=== PATIENT | female | born 1965 | race Caucasian/White ===

== ENCOUNTER → 2016-10-24 | Outpatient (CLI) | payer MEDICARE, OTHER ==
--- NOTE | 2016-10-24 17:37 | PN ---
DATE OF SERVICE: 10/24/2016 A 51-year-old lady who had [facility] of obstructive sleep apnea/hypopnea syndrome. Patient continued to use her CPAP equipment. Reading from the machine shows that usage is 92% of the time for more than 4 hours. Pressure of the machine in the range with maximum IPAP 21 cm and minimal EPAP 15 cm of water. With this regimen, apnea-hypopnea index 13.1. Sometimes patient has quiet, significant leak from the mask. She is using two-face mask and there is a possibility that the mask is not correctly fitting patient during the sleep. Patient sometimes feels sleepy during the day. Bryant Sleepiness Scale increased to 11. MEDICATIONS: ( ), topiramate, Vimpat, ( ), levothyroxine, clonazepam, vitamin B12, ranitidine, lorazepam, vitamin D3, Dilantin. PHYSICAL EXAMINATION: GENERAL: During physical exam, the patient in no distress, in wheelchair. VITAL SIGNS: BP 136/89, HR 72, estimated weight is 202 pounds. BMI 36.9. Neck 19-1/2 inches in circumference. Temp is 98.2. Oxygen saturation at room air 98%. HEENT: PERRLA, EOMI. Evaluation of the oropharynx showed low position of soft palate. NECK: Supple. No JVD, Thyroid is not palpable. LUNGS: Clear to percussion and to auscultation. Good air exchange. No wheezing or rhonchi. HEART: S1, S2 regular. No murmurs, gallops, or rubs. ABDOMEN: Obese. Soft and nontender. Bowel sounds are present. No organomegaly appreciated. EXTREMITIES: No edema. IMPRESSION: 1. Obstructive sleep apnea-hypopnea syndrome. Patient demonstrated good compliance with treatment; benefiting from treatment. 2. Significant leak from the mask while patient is using her equipment. 3. Obesity. 4. History of cerebral palsy. 5. Hypothyroidism. 6. History of seizures. 7. Acid reflux. PLAN: 1. Continue treatment with BiPAP every night for the whole night. 2. We will see possibly change mask for the patient to possibly a more comfortable one. 3. Losing weight. 4. Sleep hygiene with regular time in bed for at least 8 hours. 5. Patient does not drive car. Thank you very much for allowing me to participate in the management of your patient. Sincerely, Chad Levin MD, PhD, FAASM Diplomat of [place] [employer], Sleep Medicine Board by [place] [employer] [place] [employer] [facility] [place]
== END | disposition home or self-care (01) ==
LOC: SLEEP 14:21
PROVIDERS: ATTEND Internal Medicine
DX: G47.33 Obstructive sleep apnea (adult) (pediatric) (principal); E66.9 Obesity, unspecified; Z68.36 Body mass index [BMI] 36.0-36.9, adult; G80.9 Cerebral palsy, unspecified; E03.9 Hypothyroidism, unspecified; R56.9 Unspecified convulsions; K21.9 Gastro-esophageal reflux disease without esophagitis; Z79.899 Other long term (current) drug therapy

== ENCOUNTER 2017-05-03 12:19 | Inpatient (IN) | payer MEDICARE, OTHER ==
[2017-05-03] MEDS ORDERED: IBUPROFEN 600 MG TAB PO STA (12:58)
[2017-05-03] MEDS ORDERED: SODIUM CHLORIDE 0.9% 500 ML IV ONE (12:58)
[2017-05-03] MEDS ORDERED: ACETAMINOPHEN TAB 500 MG TAB PO STA (12:58)
--- NOTE | 2017-05-03 13:02 | ED ---
General Adult HPI - General Chief complaint: Fall Stated complaint: Fall/Seizure Time Seen by Provider: 05/03/17 12:25 Source: patient, RN notes reviewed Mode of arrival: EMS Limitations: physical limitation - History of Present Illness Initial comments: This is a 52-year-old female who has a past medical history significant for cerebral palsy and mental delay. Patient has had a long-standing history of seizures and is on multiple antiseizure medications. According to the adult foster care the patient had 3 seizures today which is unusual. Patient normally has 3 a week. Patient has had seizures in the past after she has an infection but they don't have any signs of infection currently. Patient has had no cough patient has had no difficulty breathing chest pain or shortness of breath. Patient has had no abdominal pain there's been no nausea vomiting diarrhea. Patient did slide out of her wheelchair today but denies any injury. Patient denies headache patient denies any neck pain patient denies any extremity pain. Patient denies any back pain. - Related Data Home Medications Medication Instructions Recorded Confirmed Cholecalciferol [Vitamin D3] 2,000 unit PO BID 01/22/14 05/03/17 Cyanocobalamin [Vitamin B-12] 1,000 mcg PO Q48H 01/22/14 05/03/17 LORazepam [Ativan] 1 mg PO ONCE PRN 01/22/14 05/03/17 Levothyroxine Sodium [Synthroid] 50 mcg PO DAILY 01/22/14 05/03/17 Nystatin 100,000 Unit/gm Powd 1 applic TOPICAL BID 01/22/14 05/03/17 [Mycostatin Powder] OXcarbazepine [Trileptal] 900 mg PO BID 01/22/14 05/03/17 Phenytoin Sodium Extended 100 mg PO BID 01/22/14 05/03/17 [Dilantin] Ranitidine HCl 150 mg PO HS 01/22/14 05/03/17 Topiramate 200 mg PO BID 01/22/14 05/03/17 Warfarin [Coumadin] 5 mg PO DAILY 01/22/14 05/03/17 clonazePAM [KlonoPIN] 0.5 mg PO HS 01/22/14 05/03/17 Antacid Tab 1 tab PO DAILY 05/03/17 05/03/17 Lacosamide [Vimpat] 100 mg PO BID 05/03/17 05/03/17 Topiramate [Topamax] 50 mg PO BID 05/03/17 05/03/17 Allergies Allergy/AdvReac Type Severity Reaction Status Date / Time No Known Allergies Allergy Verified 05/03/17 13:07 Review of Systems ROS Statement: Those systems with pertinent positive or pertinent negative responses have been documented in the HPI. ROS Other: All systems not noted in ROS Statement are negative. Past Medical History Past Medical History: Seizure Disorder, Thyroid Disorder Additional Past Medical History / Comment(s): MENTAL RETARDATION, CEREBRAL PALSY , History of Any Multi-Drug Resistant Organisms: None Reported Past Surgical History: No Surgical Hx Reported, Ventriculoperitoneal Shunt Past Psychological History: No Psychological Hx Reported Smoking Status: Never smoker Past Alcohol Use History: None Reported Past Drug Use History: None Reported General Exam - General Exam Comments Initial Comments: GENERAL: Patient is well-developed and well-nourished. Patient is nontoxic and well- hydrated and is in mild distress. I took the patient's temperature it was 100.1 ENT: Neck is soft and supple. No significant lymphadenopathy is noted. Oropharynx is clear. Moist mucous membranes. Neck has full range of motion without eliciting any pain. EYES: The sclera were anicteric and conjunctiva were pink and moist. Extraocular movements were intact and pupils were equal round and reactive to light. Eyelids were unremarkable. PULMONARY: Unlabored respirations. Good breath sounds bilaterally. No audible rales rhonchi or wheezing was noted. CARDIOVASCULAR: There is a regular rate and rhythm without any murmurs gallops or rubs. ABDOMEN: Soft and nontender with normal bowel sounds. No palpable organomegaly was noted. There is no palpable pulsatile mass. SKIN: Skin is clear with no lesions or rashes and otherwise unremarkable. NEUROLOGIC: Patient is alert and oriented 2. Patient's motor function is normal according to family. MUSCULOSKELETAL: Normal extremities with adequate strength and full range of motion. No lower extremity swelling or edema. No calf tenderness. LYMPHATICS: No significant lymphadenopathy is noted PSYCHIATRIC: Patient does not answer questions quickly or at all so therefore it is difficult to evaluate Limitations: physical limitation Course Vital Signs 05/03/17 05/03/17 05/03/17 12:24 12:57 14:21 Temperature 98.2 F 100.1 F H 98.9 F Pulse Rate 78 71 Respiratory 17 16 Rate Blood Pressure 161/108 126/59 O2 Sat by Pulse 98 Oximetry Medical Decision Making - Medical Decision Making EKG shows a normal sinus rhythm at 70 bpm DC interval is 172 QRS is 96 QT interval 412 QTC is 469 per patient's EKG shows no ST segment elevation or depression or T-wave abdomen is noted Patient's Dilantin level was 10.6 family states normally her own 17 or higher. So I gave the patient 500 of Dilantin IV - Lab Data Result diagrams: 05/03/17 12:45 05/03/17 12:45 Lab Results 05/03/17 05/03/17 05/03/17 Range/Units 12:45 12:45 12:45 WBC 8.1 (3.8-10.6) k/uL RBC 4.14 (3.80-5.40) m/uL Hgb 13.3 (11.4-16.0) gm/dL Hct 41.4 (34.0-46.0) % MCV 100.0 (80.0-100.0) fL MCH 32.2 (25.0-35.0) pg MCHC 32.2 (31.0-37.0) g/dL RDW 12.2 (11.5-15.5) % Plt Count 191 (150-450) k/uL Neutrophils % 83 % Lymphocytes % 7 % Monocytes % 8 % Eosinophils % 1 % Basophils % 0 % Neutrophils # 6.7 (1.3-7.7) k/uL Lymphocytes # 0.6 L (1.0-4.8) k/uL Monocytes # 0.7 (0-1.0) k/uL Eosinophils # 0.1 (0-0.7) k/uL Basophils # 0.0 (0-0.2) k/uL PT 10.7 (9.0-12.0) sec INR 1.1 (<1.2) APTT 23.5 (22.0-30.0) sec Sodium 138 (137-145) mmol/L Potassium 4.0 (3.5-5.1) mmol/L Chloride 103 (98-107) mmol/L Carbon Dioxide 23 (22-30) mmol/L Anion Gap 12 mmol/L BUN 16 (7-17) mg/dL Creatinine 1.15 H (0.52-1.04) mg/dL Est GFR (MDRD) Af Amer 60 (>60 ml/min/1.73 sqM) Est GFR (MDRD) Non-Af 49 (>60 ml/min/1.73 sqM) Glucose 116 H (74-99) mg/dL Plasma Lactic Acid Haresh (0.7-2.0) mmol/L Calcium 8.9 (8.4-10.2) mg/dL Total Bilirubin 0.6 (0.2-1.3) mg/dL AST 27 (14-36) U/L ALT 33 (9-52) U/L Alkaline Phosphatase 106 (38-126) U/L Total Protein 7.1 (6.3-8.2) g/dL Albumin 4.0 (3.5-5.0) g/dL Urine Color Urine Appearance (Clear) Urine pH (5.0-8.0) Ur Specific [place] (1.001-1.035) Urine Protein (Negative) Urine Glucose (UA) (Negative) Urine Ketones (Negative) Urine Blood (Negative) Urine Nitrite (Negative) Urine Bilirubin (Negative) Urine Urobilinogen (<2.0) mg/dL Ur Leukocyte Esterase (Negative) Urine RBC (0-5) /hpf Amorphous Sediment (None) /hpf Urine Mucus (None) /hpf Phenytoin ug/mL 05/03/17 05/03/17 05/03/17 Range/Units 13:10 13:10 14:02 WBC (3.8-10.6) k/uL RBC (3.80-5.40) m/uL Hgb (11.4-16.0) gm/dL Hct (34.0-46.0) % MCV (80.0-100.0) fL MCH (25.0-35.0) pg MCHC (31.0-37.0) g/dL RDW (11.5-15.5) % Plt Count (150-450) k/uL Neutrophils % % Lymphocytes % % Monocytes % % Eosinophils % % Basophils % % Neutrophils # (1.3-7.7) k/uL Lymphocytes # (1.0-4.8) k/uL Monocytes # (0-1.0) k/uL Eosinophils # (0-0.7) k/uL Basophils # (0-0.2) k/uL PT (9.0-12.0) sec INR (<1.2) APTT (22.0-30.0) sec Sodium (137-145) mmol/L Potassium (3.5-5.1) mmol/L Chloride (98-107) mmol/L Carbon Dioxide (22-30) mmol/L Anion Gap mmol/L BUN (7-17) mg/dL Creatinine (0.52-1.04) mg/dL Est GFR (MDRD) Af Amer (>60 ml/min/1.73 sqM) Est GFR (MDRD) Non-Af (>60 ml/min/1.73 sqM) Glucose (74-99) mg/dL Plasma Lactic Acid Haresh 1.0 (0.7-2.0) mmol/L Calcium (8.4-10.2) mg/dL Total Bilirubin (0.2-1.3) mg/dL AST (14-36) U/L ALT (9-52) U/L Alkaline Phosphatase (38-126) U/L Total Protein (6.3-8.2) g/dL Albumin (3.5-5.0) g/dL Urine Color Yellow Urine Appearance Cloudy H (Clear) Urine pH 6.5 (5.0-8.0) Ur Specific [place] 1.023 (1.001-1.035) Urine Protein 1+ H (Negative) Urine Glucose (UA) Negative (Negative) Urine Ketones Negative (Negative) Urine Blood Negative (Negative) Urine Nitrite Negative (Negative) Urine Bilirubin Negative (Negative) Urine Urobilinogen <2.0 (<2.0) mg/dL Ur Leukocyte Esterase Negative (Negative) Urine RBC 2 (0-5) /hpf Amorphous Sediment Rare H (None) /hpf Urine Mucus Rare H (None) /hpf Phenytoin 10.6 ug/mL Disposition Clinical Impression: Recurrent seizures Disposition: ADMITTED IP TO THIS HOSP Referrals: Justin Barragan MD [Primary Care Provider] - 1-2 days Time of Disposition: 14:39
[2017-05-03 13:14] LABS: Basophils % (A) 0 %; CH 31.7; CHCM 31.8; Eosinophils # (A) 0.1 k/uL (0-0.7); Eosinophils % (A) 1 %; HCT 41.4 % (34.0-46.0); HDW 1.98; HGB 13.3 gm/dL (11.4-16.0); Luc % (Auto) 1; Lymphocytes # (A) 0.6 k/uL (1.0-4.8); Lymphocytes % (A) 7 %; MCH 32.2 pg (25.0-35.0); MCHC 32.2 g/dL (31.0-37.0); Mean Platelet Volume 6.8; Monocytes # (A) 0.7 k/uL (0-1.0); Monocytes % (A) 8 %; Neutrophils # (A) 6.7 k/uL (1.3-7.7); Neutrophils % (A) 83 %; RBC 4.14 m/uL (3.80-5.40); RDW 12.2 % (11.5-15.5); WBC 8.1 k/uL (3.8-10.6); WBC (Perox) 7.97
[2017-05-03 13:23] LABS: Calcium 8.9 mg/dL (8.4-10.2); INR 1.1 (<1.2); Partial Thromboplastin Time 23.5 sec (22.0-30.0); Prothrombin Time 10.7 sec (9.0-12.0); Total Bilirubin 0.6 mg/dL (0.2-1.3); Total Protein 7.1 g/dL (6.3-8.2)
--- NOTE | 2017-05-03 13:46 | XR ---
EXAMINATION TYPE: XR chest 2V DATE OF EXAM: 05/03/2017 HISTORY: Fever. REFERENCE: Previous study dated 01/22/2014. FINDINGS: Heart size is upper limits of normal. The lungs appear clear. Pleural spaces are clear.. IMPRESSION: BORDERLINE CARDIOMEGALY.
[2017-05-03 14:28] LABS: Amorphous Sediment,Urine Rare /hpf; Appearance,Urine Cloudy (Clear); Bilirubin,Urine Negative (Negative); Glucose,Urine (UA) Negative (Negative); Ketones,Urine Negative (Negative); Leukocyte Esterase,Urine Negative (Negative); Mucus,Urine Rare /hpf; Nitrite,Urine Negative (Negative); PH, Urine 6.5 (5.0-8.0); Particle Count 5763; Protein,Urine 1+ (Negative); RBC,Urine 2 /hpf (0-5); Specific Gravity,Urine 1.023 (1.001-1.035); UA Billing (MACRO vs. MICRO) MICRO; Urobilinogen,Urine <2.0 mg/dL (<2.0)
[2017-05-03] MEDS ORDERED: PHENYTOIN SODIUM INJ 500 MG in SODIUM CHLORIDE 0.9% 100 ML IVPB STA (14:38)
[2017-05-03] MEDS ORDERED: SODIUM CHLORIDE 0.9% 1,000 ML IV ONE (14:39)
[2017-05-03 16:03] VITALS: BMI 37.1
--- NOTE | 2017-05-03 19:07 | HP ---
HISTORY AND PHYSICAL PRESENTING COMPLAINT: Seizures. HISTORY OF PRESENTING COMPLAINT: This is a 52-year-old patient, being followed by visiting physician, Dr. Barragan. The patient's father, mother, and sister are at the bedside. Patient has cerebral palsy and has a a mental age of about 6 years. The patient also had right-sided weakness from childbirth. The patient is being followed by Dr. Chandra for seizure disorder and it is common for her to have about 45 seconds of seizures about 2 or 3 times a week. Five years ago the patient had uncontrolled seizures, had to be taken to [facility]. Patient possibly had a stroke. Since that time the patient has not really walked. The patient is not able to stand. Has control of bladder and bowel movement. The patient lives in a half-way called [facility]. Today she came in because she had [id number] 4 seizures lasting about 45 minutes. The patient's Dilantin level was found to be 10 on admission. She was given a bolus in the ER. Dr. Chandra was consulted. The patient is more awake right now and able to communicate a bit. Most of the history is obtained by the family at the bedside. REVIEW OF SYSTEMS: Constitutional: Tired. HEENT: None. RESPIRATORY: None. CARDIOVASCULAR: None. GASTROINTESTINAL: None. GENITOURINARY: None. MUSCULOSKELETAL: None. DERMATOLOGICAL: None. LYMPHATIC: None. PSYCHIATRY: Slow to speak. NEUROLOGIC: Some right-sided weakness. PAST MEDICAL HISTORY: Cerebral palsy, stroke intrauterine with right-sided weakness, obstructive sleep apnea and uses a CPAP at night. 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 SOCIAL HISTORY: The patient lives at the half-way, [facility]. No smoking or alcohol. FAMILY HISTORY: Reviewed, noncontributory to presentation. HOME MEDICATIONS: 1. Ativan 1 mg p.o. p.r.n. 2. Klonopin 0.5 mg at bedtime. 3. Coumadin 5 mg p.o. daily. 4. Topamax 50 mg p.o. b.i.d. 5. Topamax 200 mg b.i.d. 6. Zantac 150 mg at bedtime. 7. Dilantin extended release 100 mg b.i.d. 8. Trileptal 900 mg p.o. b.i.d. 9. Mycostatin topical b.i.d. 10.Synthroid 50 mcg p.o. daily. 11.Vimpat 100 mg p.o. b.i.d. 12.Vitamin B12, 1000 mcg p.o. every 48 hours. 13.Vitamin D3, 2000 units p.o. b.i.d. 14.____ 1 tab p.o. daily. ALLERGIES: None. EXAMINATION: Vital signs on presentation: Temperature 100.1, temperature 98.9, pulse 91, respirations 16, blood pressure 126/59, pulse ox 98% on 2 L. GENERAL APPEARANCE: Well built, BMI 37.1, lying in bed, awake comfortable. HEENT: Eyes, pupils equal. Conjunctivae normal. HEENT: Oral cavity normal. NECK: JVD not raised. Mass not palpable. Respiratory effort normal. LUNGS: Clear. CARDIOVASCULAR: 1st and 2nd heart sounds, no edema. ABDOMEN: Soft, nontender. Liver and spleen not palpable. LYMPHATICS: No lymph node palpable. PSYCHIATRY: Awake, answering simple questions. Speech is slightly slow. NEUROLOGIC: Weakness on the right side. INVESTIGATIONS: White count 8.1, hemoglobin 13.3, potassium 4.0, BUN 16, creatinine 1.15. UA negative for nitrite and leuko esterase. ASSESSMENT: 1. Uncontrolled seizures in the patient who has had chronic longstanding seizures, being followed by Dr. Justyna Chandra. 2. Cerebral palsy with mental age of 6 years. 3. Chronic some right-sided weakness from childbirth, power is 4/5. 4. Obstructive sleep apnea. Uses a CPAP at night. 5. Hypothyroidism. PLAN: I told the family to bring CPAP from home. The patient was given loading dose of Dilantin. Neurology was consulted. Seizure precautions and neuro checks in place. Other home medications to be resumed. Care was discussed with the family at the bedside. MMODL / IJN: [id number] /
--- NOTE | 2017-05-03 19:16 | HP ---
HISTORY AND PHYSICAL ADDENDUM: The patient's mother states that patient has been on Coumadin for the last 5 years from [facility] after she had a stroke and has been taking it ever since. ARSEN / RAYON: [id number] /
[2017-05-03] MEDS: OXcarbazepine 300 MG TAB PO SCH (21:17)
[2017-05-03] MEDS: clonazePAM 0.5 MG TAB PO SCH (21:18)
[2017-05-03] MEDS: PHENYTOIN SODIUM EXTENDED 100 MG CAP PO SCH (21:18)
[2017-05-03] MEDS: TOPIRAMATE 25 MG TAB PO SCH (21:18)
[2017-05-03] MEDS: NYSTATIN 100,000 UNIT/GM POWD 15 GM TOPICAL SCH (21:18)
[2017-05-03] MEDS: FAMOTIDINE 20 MG TAB PO SCH (21:18)
[2017-05-03] MEDS: LACOSAMIDE 50 MG TABLET PO SCH (21:18)
[2017-05-03] MEDS: TOPIRAMATE 100 MG TAB PO SCH (21:19)
[2017-05-03] MEDS: WARFARIN 10 MG TAB PO SCH (21:38)
[2017-05-04] MEDS: LEVOTHYROXINE 50 MCG TAB PO SCH (06:54)
[2017-05-04] MEDS: NYSTATIN 100,000 UNIT/GM POWD 15 GM TOPICAL SCH ×2 (09:21→20:17)
[2017-05-04] MEDS: LACOSAMIDE 50 MG TABLET PO SCH ×4 (10:08→20:17)
[2017-05-04] MEDS: OXcarbazepine 300 MG TAB PO SCH ×2 (10:09→20:18)
[2017-05-04] MEDS: PHENYTOIN SODIUM EXTENDED 100 MG CAP PO SCH ×2 (10:10→20:18)
[2017-05-04] MEDS: TOPIRAMATE 25 MG TAB PO SCH ×2 (10:12→20:18)
[2017-05-04] MEDS: TOPIRAMATE 100 MG TAB PO SCH ×2 (10:13→20:18)
--- NOTE | 2017-05-04 10:20 | P.CNNES ---
History of Present Illness Consult date: 05/03/17 Reason for Consult: Patient admitted with breakthrough seizures. History of Present Illness: This patient is a 52-year-old right-handed white female who has a long-standing history of intractable epilepsy and cognitive impairment. She has a history of severe cerebral palsy since age of 9. She is currently residing at a [facility] in [place]. She has a history of intractable epilepsy and is currently taking multiple anticonvulsant medications. Apparently she had several seizures [id number] today which is unusual for her. Apparently she had 4 seizures lasting 30 seconds and seem to occur [id number]. Due to the frequent seizures she was advised to come to the emergency room for further evaluation. She is currently residing at the [facility]. The nursing staff there was concern due to the recurrence of [id number] seizures. She was taken by EMS to the emergency room where she was evaluated in the ER by Dr. Esteves. The patient has a history of cerebral palsy as well as history of old stroke. As noted she does have history of multiple anticonvulsant medication use. Her laboratory testing in the ER revealed her serum Dilantin level to be 10.0. She was given a bolus of IV Dilantin 500 mg IVP back in the ER. She also takes Vimpat, Trileptal, and Topamax as additional anticonvulsant medications. We are recommending that these blood levels be checked tomorrow morning. The patient's mother was at bedside today during her neurology examination. The patient also has a history of obstructive sleep apnea for which she uses CPAP at home. She was subsequently admitted to the hospital for further evaluation. Patient does take Coumadin for the past 5 years due to history of stroke. This may also be interacting with her anticonvulsant medications. According to her mother she did have a temperature at the [facility] of 100.1. She does have history of recurrent urinary tract infections in the past as well. Her urine culture however did come back negative for any signs of bacterial infection. The patient is now admitted and neurology has been consulted for further evaluation and recommendations. Review of Systems Constitutional: Denies chills, Denies fever Eyes: denies blurred vision, denies pain Ears, nose, mouth and throat: Denies headache, Denies sore throat Cardiovascular: Denies chest pain, Denies shortness of breath Respiratory: Denies cough Gastrointestinal: Denies abdominal pain, Denies diarrhea, Denies nausea, Denies vomiting Musculoskeletal: Denies myalgias Integumentary: Denies pruritus, Denies rash Neurological: Reports aphasia, Reports change in mentation, Reports change in speech, Reports convulsions, Reports hearing difficulties, Reports memory loss, Denies numbness, Denies weakness Psychiatric: Denies anxiety, Denies depression Endocrine: Denies fatigue, Denies weight change Past Medical History Past Medical History: Seizure Disorder Additional Past Medical History / Comment(s): Mild retardation, CEREBRAL PALSY, CVA at , CVA 2010, right sided weakness History of Any Multi-Drug Resistant Organisms: None Reported Past Surgical History: Ventriculoperitoneal Shunt Past Psychological History: No Psychological Hx Reported Smoking Status: Never smoker Past Alcohol Use History: None Reported Past Drug Use History: None Reported - Past Family History Father Family Medical History: No Reported History Medications and Allergies Home Medications Medication Instructions Recorded Confirmed Type Cholecalciferol [Vitamin D3] 2,000 unit PO BID 01/22/14 05/03/17 History Cyanocobalamin [Vitamin B-12] 1,000 mcg PO Q48H 01/22/14 05/03/17 History LORazepam [Ativan] 1 mg PO ONCE PRN 01/22/14 05/03/17 History Levothyroxine Sodium [Synthroid] 50 mcg PO DAILY 01/22/14 05/03/17 History Nystatin 100,000 Unit/gm Powd 1 applic TOPICAL BID 01/22/14 05/03/17 History [Mycostatin Powder] OXcarbazepine [Trileptal] 900 mg PO BID 01/22/14 05/03/17 History Phenytoin Sodium Extended 100 mg PO BID 01/22/14 05/03/17 History [Dilantin] Ranitidine HCl 150 mg PO HS 01/22/14 05/03/17 History Topiramate 200 mg PO BID 01/22/14 05/03/17 History Warfarin [Coumadin] 5 mg PO DAILY 01/22/14 05/03/17 History clonazePAM [KlonoPIN] 0.5 mg PO HS 01/22/14 05/03/17 History Antacid Tab 1 tab PO DAILY 05/03/17 05/03/17 History Lacosamide [Vimpat] 100 mg PO BID 05/03/17 05/03/17 History Topiramate [Topamax] 50 mg PO BID 05/03/17 05/03/17 History Allergies Allergy/AdvReac Type Severity Reaction Status Date / Time No Known Allergies Allergy Verified 05/03/17 13:07 Physical Examination - Vital Signs Vital Signs: Vital Signs Temp Pulse Pulse Resp BP BP Pulse Ox 05/03/17 15:26 97.7 F 64 18 110/57 100 05/03/17 15:00 97.8 F 62 24 134/67 99 05/03/17 14:21 98.9 F 71 16 126/59 98 05/03/17 12:57 100.1 F H 05/03/17 12:24 98.2 F 78 17 161/108 Intake and Output 05/03/17 05/03/17 05/03/17 06:59 14:59 22:59 Other: Voiding Method Toilet Bedside Commode Weight 92.079 kg 92.079 kg Patient Weight 05/04/17 06:59 Weight 92.079 kg - Constitutional General appearance: average body habitus - EENT EENT: PERRL, mucous membranes moist - Respiratory Respiratory: lungs clear, normal breath sounds - Cardiovascular Cardiovascular: regular rate, normal S1, normal S2 Extremities: no peripheral edema bilaterally - Gastrointestinal Gastrointestinal: normoactive bowel sounds - Integumentary Integumentary: normal - Neurologic Cranial nerve examination: PERRL, EOMI, V1/V2/V3 grossly intact, face symmetric , intact gag reflex, intact corneal reflex, normal palatal elevation Speech examination: intact Sensorimotor examination: intact Motor examination - right side: 3/5: biceps, triceps, wrist flexion, wrist extension, 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, hip flexors, knee extensors, dorsiflexion, toe extension (EHL) , plantarflexion Motor examination - left side: 3/5: biceps, triceps, wrist flexion, wrist extension, 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, hip flexors, knee extensors, dorsiflexion, toe extension (EHL) , plantarflexion Detailed sensory examination: intact Reflex and gait examination: intact Reflexes: 1+: ankle, bicep, knee, tricep - Musculoskeletal Musculoskeletal: no pain - Psychiatric Psychiatric: mood/affect appropriate, cooperative Results - Laboratory Findings CBC and BMP: 05/03/17 12:45 05/03/17 12:45 Abnormal Lab Findings: Abnormal Labs 05/03/17 05/03/1705/03/17 12:45 12:45 14:02 Lymphocytes # 0.6 L Creatinine 1.15 H Glucose 116 H Urine Appearance Cloudy H Urine Protein 1+ H Amorphous Sediment Rare H Urine Mucus Rare H Assessment and Plan (1) Intractable epilepsy Current Visit: Yes Status: Acute SNOMED Code(s): 341600259 (2) Cerebral palsy Current Visit: Yes Status: Acute SNOMED Code(s): 907769664 (3) Obstructive sleep apnea Current Visit: Yes Status: Acute SNOMED Code(s): 77087119 (4) Hypothyroidism Current Visit: Yes Status: Acute SNOMED Code(s): 66629989 Plan: This patient is a 52-year-old female who is currently residing at the [facility]. She has a known history of intractable epilepsy. GERD just 2-3 seizures per week. She was coming along well until today when she had 4 short cfts-ar-fixn seizures. These lasted 30-40 seconds in duration. She was also noted to have a temperature of 100.1. She was transported to the emergency room at [facility] for further evaluation. She was seen in the ER by Dr. Esteves. She underwent some laboratory testing which revealed her serum Dilantin level to be 10.0. She was given a bolus of IV Dilantin 500 mg in the ER and admitted to the hospital. Patient is now resting comfortably with CPAP in position. Her mother is at bedside. She has a long- standing history of intractable epilepsy. We are recommending to rule out underlying sepsis in this patient. We are recommending to increase her dose of Vimpat by an extra 50 mg by mouth twice a day. We will recheck her Dilantin level tomorrow morning and adjust her dose as needed. Her dose of Trileptal and Topamax will stay the same. We will continue close neurological follow-up for this patient during this admission. Her overall prognosis at this time remains guarded. Time with Patient: Greater than 30
--- NOTE | 2017-05-04 17:56 | XR ---
EXAMINATION TYPE: XR abdomen complete w decub DATE OF EXAM: 05/04/2017 COMPARISON: NONE HISTORY: Abdominal pain and bloating. TECHNIQUE: Supine, upright, and left side down lateral decubitus views of the abdomen are obtained. FINDINGS: There is no evidence for pneumoperitoneum. The bowel gas pattern is unremarkable as there is air throughout nondilated small and large bowel. A lthough there are prominent gas-filled loops of colon with inspissated stool. There is a soft tissue density in the pelvis which is felt to be the urinary bladder. No free intrape ritoneal air is identified. IMPRESSION: Nonspecific bowel gas pattern. There is inspissated stool noted in the colon.
[2017-05-04] MEDS ORDERED: WARFARIN 5 MG TAB PO SCH (18:00)
[2017-05-04 18:58] LABS: INR 1.3 (<1.2); Prothrombin Time 12.6 sec (9.0-12.0)
[2017-05-04] MEDS: WARFARIN 10 MG TAB PO SCH (20:16)
[2017-05-04] MEDS: clonazePAM 0.5 MG TAB PO SCH (20:17)
[2017-05-04] MEDS: FAMOTIDINE 20 MG TAB PO SCH (20:17)
--- NOTE | 2017-05-05 03:02 | PN ---
PROGRESS NOTE DATE OF SERVICE: 05/04/17. PRESENTING COMPLAINT: Seizure. INTERVAL HISTORY: This patient presented with uncontrolled seizures. Dose of Vimpat was increased by Dr. Chandra. The patient is not eating much this morning when I saw the patient. Per family patient not sure whether she had a bowel movement. No nausea or vomiting. REVIEW OF SYSTEMS: Done for constitutional, cardiovascular, GI, pulmonary, relevant findings as above. CURRENT MEDICATIONS: Reviewed. PHYSICAL EXAMINATION: Temperature 97.2, pulse 66, respirations 16, blood pressure 126/86, pulse ox 95% on room air. General appearance lying in bed, awake tired-appearing. Eyes pupils equal. Conjunctivae normal. Neck JVD not raised. Mass not palpable. Respiratory effort normal. LUNGS: Clear. Cardiovascular first and second sounds normal. No edema. Abdomen slightly distended, soft, nontender. Liver and spleen not palpable. Psychiatry: Patient is answering simple questions. Neurological: Weakness on the right side. INVESTIGATIONS: INR 1.3. Abdominal x-ray was ordered. Does not show any signs of obstruction. Stool is present. ASSESSMENT: 1. Uncontrolled seizure in a patient who has had chronic longstanding seizures. Now Vimpat dose has been increased. 2. Cerebral palsy with mental age of 6. 3. 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 4. Obstructive sleep apnea uses a CPAP at night. 5. Hypothyroidism. 6. Acute constipation. PLAN: There is no signs of obstruction. We will go ahead and give a soapsuds enema. If that works, the patient should be able to go home tomorrow. MMODL / IJN: [id number] /
[2017-05-05] MEDS: LEVOTHYROXINE 50 MCG TAB PO SCH (05:12)
[2017-05-05 07:49] VITALS: BP 114/77; PULSE 71; RESP 12; TEMP 98.1
[2017-05-05 07:56] LABS: INR 1.9 (<1.2); Prothrombin Time 18.4 sec (9.0-12.0)
[2017-05-05] MEDS: LACOSAMIDE 50 MG TABLET PO SCH ×2 (09:44)
[2017-05-05] MEDS: PHENYTOIN SODIUM EXTENDED 100 MG CAP PO SCH (09:45)
[2017-05-05] MEDS: OXcarbazepine 300 MG TAB PO SCH (09:45)
[2017-05-05] MEDS: TOPIRAMATE 25 MG TAB PO SCH (09:45)
[2017-05-05] MEDS: TOPIRAMATE 100 MG TAB PO SCH (09:45)
[2017-05-05] MEDS: NYSTATIN 100,000 UNIT/GM POWD 15 GM TOPICAL SCH (09:46)
[2017-05-05] MEDS ORDERED: MAGNESIUM CITRATE 296 ML BOTTLE PO ONE (11:37)
--- NOTE | 2017-05-05 23:00 | P.DS ---
Providers Date of admission: 05/03/17 14:39 Expected date of discharge: 05/05/17 Attending physician: Moe Adhikari Consults: 05/03/17 14:39 Consult Physician Urgent Consulting Provider: Karen Chandra Consult Reason/Comments: Recurrent seizures Do you want consulting provider notified?: Yes Primary care physician: [facility] Course: FINAL DIAGNOSES: -Uncontrolled seizure in a patient who has had chronic long-standing seizure being followed by Dr. Chandra -Cerebral palsy with mental age of 76 years old area -Chronic some right-sided weakness from childbirth power is 4/5. -Obstructive sleep apnea, uses CPAP at night. -Hypothyroidism. HOSPTIAL COURSE: 52-year-old female cerebral palsy ventilate about 6 years old. With right- sided weakness from followed by Dr. Witt for seizure disorder. Patient lives in a [facility] and was brought in because she had packed back for seizures lasting about 45 minutes. Admitted for the same lab work revealed low Dilantin level, received a bolus in the ER. Neurology was consulted. Dilantin level reevaluated and was found to be therapeutic after bolus. Overall condition stabilized, tolerating her diet, cleared by neurology for discharge back to the [facility]. PHYSICAL EXAM: CARDIOVASCULAR: First and second sound noted no edema RESPIRATORY: Respiratory effort normal and sounds clear to auscultation NEUROLOGIC: Right-sided weakness, from PSYCHIATRY: Patient able to answer simple straightforward questions speech is slightly slow. Patient was seen and examined by nurse practitioner Jyothi Juárez in all elements of the case discussed with attending Dr. Adhikari DISPOSITION: Discharged to [facility] Plan - Discharge Summary New Discharge Prescriptions: New Lacosamide [Vimpat] 50 mg PO BID #60 tablet Continue Nystatin 100,000 Unit/gm Powd [Mycostatin Powder] 1 applic TOPICAL BID Ranitidine HCl 150 mg PO HS LORazepam [Ativan] 1 mg PO ONCE PRN PRN Reason: Seizures Cyanocobalamin [Vitamin B-12] 1,000 mcg PO Q48H Phenytoin Sodium Extended [Dilantin] 100 mg PO BID Levothyroxine Sodium [Synthroid] 50 mcg PO DAILY Topiramate 200 mg PO BID OXcarbazepine [Trileptal] 900 mg PO BID Warfarin [Coumadin] 5 mg PO DAILY clonazePAM [KlonoPIN] 0.5 mg PO HS Cholecalciferol [Vitamin D3] 2,000 unit PO BID Lacosamide [Vimpat] 100 mg PO BID Topiramate [Topamax] 50 mg PO BID Antacid Tab 1 tab PO DAILY Discharge Medication List Cholecalciferol [Vitamin D3] 2,000 unit PO BID 01/22/14 [History] Cyanocobalamin [Vitamin B-12] 1,000 mcg PO Q48H 01/22/14 [History] LORazepam [Ativan] 1 mg PO ONCE PRN 01/22/14 [History] Levothyroxine Sodium [Synthroid] 50 mcg PO DAILY 01/22/14 [History] Nystatin 100,000 Unit/gm Powd [Mycostatin Powder] 1 applic TOPICAL BID 01/22/14 [History] OXcarbazepine [Trileptal] 900 mg PO BID 01/22/14 [History] Phenytoin Sodium Extended [Dilantin] 100 mg PO BID 01/22/14 [History] Ranitidine HCl 150 mg PO HS 01/22/14 [History] Topiramate 200 mg PO BID 01/22/14 [History] Warfarin [Coumadin] 5 mg PO DAILY 01/22/14 [History] clonazePAM [KlonoPIN] 0.5 mg PO HS 01/22/14 [History] Antacid Tab 1 tab PO DAILY 05/03/17 [History] Lacosamide [Vimpat] 100 mg PO BID 05/03/17 [History] Topiramate [Topamax] 50 mg PO BID 05/03/17 [History] Lacosamide [Vimpat] 50 mg PO BID #60 tablet 05/05/17 [Rx] Follow up Appointment(s)/Referral(s): Soniya Chandra MD [STAFF PHYSICIAN] - 05/28/17 12:00 pm Justin Barragan MD [Primary Care Provider] - 05/09/17 (Dr. Barragan's [facility] will [facility] with an appointment time.) Patient Instructions/Handouts: Lacosamide (By mouth), Epilepsy (DC), Cerebral Palsy (DC), Recurrent Seizures in Adults (DC) Discharge Disposition: HOME SELF-CARE
--- NOTE | 2017-05-06 06:55 | DS ---
DISCHARGE SUMMARY DATE OF SERVICE: May 05, 2017 ATTENDING NOTE: This patient is seen and examined by me. I discussed with my nurse practitioner, Ms. Juárez. The patient presented with uncontrolled seizures. The dose of Vimpat was increased. No further seizures. The patient has significant constipation. Given an enema to which she responded well. EXAMINATION: ABDOMEN: Soft, nontender. The patient answering questions. Seen by Dr. Chandra from neurology. Okay to be discharged. Follow with Dr. Chandra. MMVISHNUL / RAYON: [id number] /
--- NOTE | 2017-05-16 10:21 | EEG ---
ELECTROENCEPHALOGRAM REPORT DATE OF EE05/05/2017 ELECTROENCEPHALOGRAPHIC EXAMINATION REPORT: INDICATION FOR EXAMINATION This patient is a 52-year-old female being evaluated for recurrent seizures. Patient has history of underlying epilepsy. AGE: 52. EEG FINDINGS: A routine 21 channel awake digital EEG recording was accomplished utilizing the 10 - 20 international system with bipolar and referential montages. The background activity in the most alert resting state consists of a low to medium amplitude, poorly-developed and poorly-sustained 3 - 4 Hz activity over the posterior head regions. This posterior rhythm attenuates to eye opening. There is a small amount of low amplitude 18 - 20 Hz beta activity seen maximally over the anterior head regions. Muscle and movement artifact was observed on a few occasions during the tracing. Hyperventilation was not performed. Photic stimulation at flash frequencies of 2 - 30 Hz produced a minimal occipital driving response. No epileptiform discharges were seen. IMPRESSION: This EEG gives evidence of a severe widespread diffuse disturbance in cerebral function. The EEG failed to reveal any focal, lateralized, or epileptiform abnormalities. If clinically indicated, a followup EEG is recommended. Clinical correlation is recommended. MMODL / IJN: [id number] /
== END 2017-05-05 16:10 | disposition home or self-care (01) | DRG 101 ==
LOC: EC 12:19 → 5MS5E 14:39
PROVIDERS: ADMIT Hospitalist; ATTEND Hospitalist
DX: G40.919 Epilepsy, unspecified, intractable, without status epilepticus (principal); G80.9 Cerebral palsy, unspecified; E03.9 Hypothyroidism, unspecified; G47.33 Obstructive sleep apnea (adult) (pediatric); R53.1 Weakness; F79 Unspecified intellectual disabilities; K59.00 Constipation, unspecified; Z79.899 Other long term (current) drug therapy; Z79.01 Long term (current) use of anticoagulants; Z98.2 Presence of cerebrospinal fluid drainage device; Z87.440 Personal history of urinary (tract) infections
CPT/HCPCS: 36415; 51701; 71020; 74020; 80053; 80183; 80185; 81001; 83605; 85025; 85610; 85730; 87040; 87086; 93005; 95819; 96365; 99285

== ENCOUNTER → 2017-07-15 | Outpatient (CLI) | payer MEDICARE, OTHER ==
--- NOTE | 2017-07-15 14:46 | CT ---
EXAMINATION TYPE: CT brain wo con DATE OF EXAM: 07/15/2017 COMPARISON: 01/22/2014 HISTORY: Recent fall, epilepsy CT DLP: 1192 mGycm Automated exposure control for dose reduction was used. FINDINGS: The ventricles, basal cisterns and sulci overlying the cerebral convexities demonstrate moderate enla rgement. Right-sided shunt catheter is again noted and appears to be unchanged. The tip of the cathet er does not appear to reside within the ventricle. Stable arachnoid cyst left frontal lobe. Calcifications involving the basal ganglia and midbrain. Dense calcifications which are intraparenchy mal are stable. There is no evidence for intracranial hemorrhage or sulcal effacement. There is decreased attenuation about the periventricular white matter and deep white matter of both c erebral hemispheres, compatible with chronic small vessel ischemia. No mass effects are seen. If symp toms persist consider MRI. Hyperostosis of the frontal calvarium. Previous surgery involving the MANAGER RECOVERY shunt catheter. IMPRESSION: 1. Stable evidence of moderate to severe hydrocephalus. As previously noted tip of the catheter is s een along the lateral margin of the body of the right lateral ventricle. It does not appear to be wit hin the ventricle. Correlate clinically. 2. Additional chronic findings are stable.
== END | disposition home or self-care (01) ==
LOC: RADCTMAIN 13:39
PROVIDERS: ATTEND Psychiatry & Neurology Neurology
DX: G91.9 Hydrocephalus, unspecified (principal); G40.209 Localization-related (focal) (partial) symptomatic epilepsy and epileptic syndromes with complex partial seizures, not intractable, without status epilepticus; Z98.2 Presence of cerebrospinal fluid drainage device; Z91.81 History of falling
CPT/HCPCS: 70450

== ENCOUNTER → 2017-10-08 | Outpatient (CLI) | payer MEDICARE, OTHER ==
--- NOTE | 2017-10-08 19:33 | CT ---
EXAMINATION TYPE: CT brain wo con DATE OF EXAM: 10/08/2017 COMPARISON: 07/15/2017 HISTORY: Partial epilepsy CT DLP: 1183 mGycm Automated exposure control for dose reduction was used. FINDINGS: There is widening of the interhemispheric fissure anteriorly. There is extensive parenchymal calcific ation involving the thalamus on the left side extending into the left temporal lobe. There is no midl ine shift. There is no mass effect. There is no sign of intracranial hemorrhage. There is a ventricul ar shunt catheter on the right side that has tip close to the right lateral ventricle. Third ventricl e is midline. The calvarium is intact. IMPRESSION: THE RIGHT-SIDED SHUNT CATHETER HAS THE TIP VERY CLOSE TO BEING WITHIN THE RIGHT LATERAL VENTRICLE. TH E VENTRICLES APPEAR STABLE COMPARED TO LAST CT SCAN. STABLE LEFT SIDE PARENCHYMAL THALAMIC CALCIFICAT ION. LEFT FRONTAL ENCEPHALOMALACIA IS STABLE. NO ACUTE INTRACRANIAL ABNORMALITY. THERE IS ALSO NO JANEEN NGE COMPARED TO OLD EXAM OF 01/22/2014.
== END | disposition home or self-care (01) ==
LOC: RADCTMAIN 18:30
PROVIDERS: ATTEND Psychiatry & Neurology Neurology
DX: G93.89 Other specified disorders of brain (principal)
CPT/HCPCS: 70450

== ENCOUNTER → 2017-11-06 | Outpatient (CLI) | payer MEDICARE, OTHER ==
--- NOTE | 2017-11-06 17:01 | PN ---
PROGRESS NOTE DATE OF SERVICE: 11/06/2017 52-year-old lady has been followed in Sleep Center for treatment of obstructive sleep apnea-hypopnea syndrome. Today she came for followup visit and the patient looks much better than before. She is more alert than before. She is using her machine every night. No snoring with the machine. [place] Sleepiness Scale still in the high range of 17. MEDICATIONS: Topiramate, levothyroxine, clonazepam, vitamin B12, Ranitidine, lorazepam, vitamin D3, Dilantin. No changes in medications. PHYSICAL EXAM: A 52-year-old lady without distress. Patient is on wheelchair. BP 139/73, HR 62, RR 16, weight around 190.4, 190.4, BMI 41.1, temperature 97.7, oxygen saturation on room air 96%, oropharynx low position of soft palate. ABDOMEN: Obese. COLLISION REPAIRER: Right-sided weakness. IMPRESSION: 1. Obstructive sleep apnea-hypopnea syndrome. The patient is using her equipment every night, benefitting from treatment. 2. Obesity. 3. History of cerebral palsy. 4. Hypothyroidism. 5. History of seizures. 6. Acid reflux. PLAN: 1. Continue treatment with BiPAP every night for the whole night. 2. Sleep hygiene with regular time in bed for at least 8 hours. 3. The patient does not drive. 4. Losing weight. Thank you very much for allowing me to participate in management of your patient. Sincerely, Chad Levin MD, PhD, FAASM Diplomat of [employer] [employer] [place] [employer] Byproducts Operator of [facility] [place] MMODL / RAYON: [id number] /
== END | disposition home or self-care (01) ==
LOC: SLEEP 15:32
PROVIDERS: ATTEND Internal Medicine
DX: G47.33 Obstructive sleep apnea (adult) (pediatric) (principal); E03.9 Hypothyroidism, unspecified; K21.9 Gastro-esophageal reflux disease without esophagitis; E66.9 Obesity, unspecified; Z86.69 Personal history of other diseases of the nervous system and sense organs; Z79.899 Other long term (current) drug therapy

== ENCOUNTER 2017-12-25 17:01 | Emergency (ER) | payer MEDICARE, OTHER ==
--- NOTE | 2017-12-25 17:43 | ED ---
General Adult HPI - General Chief complaint: Extremity Injury, Lower Stated complaint: Ankle Swelling/Pain Time Seen by Provider: 12/25/17 17:22 Source: patient, RN notes reviewed Mode of arrival: wheelchair Limitations: no limitations - History of Present Illness Initial comments: 52-year-old female presents to the emergency department for a chief complaint of right ankle pain times one day. Patient lives in a senior living and was being transferred from her wheelchair to a chair in a van when she fell and injured her right ankle. Patient did not sustain any other injuries. Patient did not hit her head or lose consciousness. Caregiver states that when she got back home she required more assistance going to the bathroom and that is when she started to complain of pain in her ankle. They state it is painful for her to put weight on the ankle. Patient has no other complaints at this time including shortness of breath, chest pain, abdominal pain, nausea or vomiting, headache, or visual changes. - Related Data Home Medications Medication Instructions Recorded Confirmed Cholecalciferol [Vitamin D3] 2,000 unit PO BID 01/22/14 05/03/17 Cyanocobalamin [Vitamin B-12] 1,000 mcg PO Q48H 01/22/14 05/03/17 LORazepam [Ativan] 1 mg PO ONCE PRN 01/22/14 05/03/17 Levothyroxine Sodium [Synthroid] 50 mcg PO DAILY 01/22/14 05/03/17 Nystatin 100,000 Unit/gm Powd 1 applic TOPICAL BID 01/22/14 05/03/17 [Mycostatin Powder] OXcarbazepine [Trileptal] 900 mg PO BID 01/22/14 05/03/17 Phenytoin Sodium Extended 100 mg PO BID 01/22/14 05/03/17 [Dilantin] Ranitidine HCl 150 mg PO HS 01/22/14 05/03/17 Topiramate 200 mg PO BID 01/22/14 05/03/17 clonazePAM [KlonoPIN] 0.5 mg PO HS 01/22/14 05/03/17 Antacid Tab 1 tab PO DAILY 05/03/17 05/03/17 Lacosamide [Vimpat] 100 mg PO BID 05/03/17 05/03/17 Topiramate [Topamax] 50 mg PO BID 05/03/17 05/03/17 Lacosamide [Vimpat] 50 mg PO BID@0800,2100 12/25/17 12/25/17 Allergies Allergy/AdvReac Type Severity Reaction Status Date / Time No Known Allergies Allergy Verified 12/25/17 17:31 Review of Systems ROS Statement: Those systems with pertinent positive or pertinent negative responses have been documented in the HPI. ROS Other: All systems not noted in ROS Statement are negative. Past Medical History Past Medical History: Seizure Disorder Additional Past Medical History / Comment(s): Mild retardation, CEREBRAL PALSY, CVA at , CVA 2010, right sided weakness History of Any Multi-Drug Resistant Organisms: None Reported Past Surgical History: Ventriculoperitoneal Shunt Past Psychological History: No Psychological Hx Reported Smoking Status: Never smoker Past Alcohol Use History: None Reported Past Drug Use History: None Reported - Past Family History Father Family Medical History: No Reported History General Exam Limitations: no limitations General appearance: alert, in no apparent distress Head exam: Present: atraumatic, normocephalic, normal inspection Respiratory exam: Present: normal lung sounds bilaterally. Absent: respiratory distress, wheezes, rales, rhonchi, stridor Cardiovascular Exam: Present: regular rate, normal rhythm, normal heart sounds. Absent: systolic murmur, diastolic murmur, rubs, gallop, clicks Extremities exam: Present: normal capillary refill (Refill less than 2 seconds and pedal pulse 2+ in the right lower extremity.), joint swelling (Patient does have moderate right ankle swelling. No redness or cellulitic changes. No signs of infection. No swelling in the calf.). Absent: full ROM (Patient has limited dorsiflexion of the right ankle as well as limited plantar flexion. Full range of motion of all toes.), tenderness (No tenderness to the medial or lateral malleolus of the right ankle. No tenderness in the right foot.), calf tenderness (No tenderness in the calf. No swelling, redness, or warmth in the right calf. Negative Homans sign.) Course Vital Signs 12/25/17 12/25/17 17:05 17:08 Temperature 98.2 F Pulse Rate 65 Respiratory 20 Rate Blood Pressure 129/78 Medical Decision Making - Medical Decision Making 52-year-old female presents to the emergency department for a chief complaint of right ankle pain times one day. Patient fell out of her wheelchair while transferring to another chair. Patient lives at a senior living and was complaining of right ankle pain after the incident. senior care caregiver states patient is complaining of pain when bearing weight on the right ankle. Patient does use a wheelchair at home. On exam patient does have mild to moderate swelling of the lateral malleolus. No tenderness to the lateral malleolus or medial malleolus of the right ankle. No tenderness in the foot. No redness swelling and tenderness in the right calf. Negative Homans sign. X- ray demonstrates no acute abnormality of the right ankle. There is an old healed fracture of the fibula/tibia. . Patient likely has a sprain or contusion of the right ankle. It was Clarence wrapped in the emergency department. Patient will continue to use wheelchair and have assistance from caregivers for transferring. She will rest ice and elevate the ankle. Motrin and Tylenol for pain. She will follow-up with primary care in 1-2 days. She will return to the emergency Department if she has any worsening symptoms. Disposition Clinical Impression: Right ankle injury Disposition: HOME SELF-CARE Condition: Good Instructions: Ankle Sprain (ED) Additional Instructions: Please rest, ice, and elevate the right ankle. Use Clarence wrap that was provided for you. Continue to have assistance with transferring. Motrin or Tylenol for pain. Follow-up with primary care in 1-2 days. Return to the emergency department if you have any worsening symptoms. Is patient prescribed a controlled substance at d/c from ED?: No Referrals: Dm Nuñez MD [Primary Care Provider] - 1-2 days Time of Disposition: 18:27
--- NOTE | 2017-12-25 17:57 | XR ---
EXAMINATION TYPE: XR ankle complete RT DATE OF EXAM: 12/25/2017 COMPARISON: 10/06/2010 HISTORY: Ankle pain. Fall. TECHNIQUE: 3 views FINDINGS: There is old healed fracture of the distal shaft of the tibia. Ankle mortise is anatomic. T here is old healed fracture distal fibula. I see no acute fracture nor dislocation. IMPRESSION: No acute abnormality of the right ankle.
[2017-12-25 18:46] VITALS: BP 127/76; PULSE 64; RESP 18; TEMP 98.6
== END 2017-12-25 18:46 | disposition home or self-care (01) ==
LOC: EC 17:01
DX: S99.911A Unspecified injury of right ankle, initial encounter (principal); G40.909 Epilepsy, unspecified, not intractable, without status epilepticus; Z79.899 Other long term (current) drug therapy; Z86.73 Personal history of transient ischemic attack (TIA), and cerebral infarction without residual deficits; Z98.2 Presence of cerebrospinal fluid drainage device; W05.0XXA Fall from non-moving wheelchair, initial encounter; Y93.89 Activity, other specified; Y92.89 Other specified places as the place of occurrence of the external cause
CPT/HCPCS: 99283

== ENCOUNTER → 2018-10-15 | Outpatient (CLI) | payer MEDICARE, OTHER ==
--- NOTE | 2018-10-15 12:12 | SFUN ---
SLEEP CENTER FOLLOW UP NOTE DATE OF SERVICE: 10/15/2018 A 53-year-old lady has been followed in sleep center for treatment of obstructive sleep apnea-hypopnea syndrome. The patient continued to use her CPAP equipment every night and she likes her Carin View full-face mask more than the mask which covers her nose. I checked her CPAP unit. Usage is 21 out of 30 nights for more than 4 hours. Average usage is 8.9 hours at that indicates normal compliance. [place] Sleepiness Scale is 17. MEDICATIONS: Topiramate, levothyroxine, clonazepam, vitamin B12, ranitidine, lorazepam, vitamin D3, Dilantin. PHYSICAL EXAMINATION: During physical exam, a 53-year-old lady on wheelchair without distress. VITAL SIGNS: BP 185/104, HR 76, RR 16, height 4 feet 11 inches, weight around 200, RR 16, temperature 98.2, oxygen saturation at room air 95%. HEENT: PERRLA, EOMI. Oropharynx low position of soft palate. ABDOMEN: Obese. MATERIAL COMBINER: Right-sided weakness. Patient in wheelchair. IMPRESSION: 1. Obstructive sleep apnea-hypopnea syndrome. Patient demonstrated good compliance with treatment benefitting from treatment. 2. Obesity. 3. History of cerebral palsy. 4. History of dementia. 5. Hypothyroidism. 6. History of seizures. 7. Acid reflux. PLAN: 1. Patient will continue to use CPAP equipment every night for the whole night. 2. Prescription for all necessary CPAP supplies including Carin View full-face mask, tube, filters. 3. Losing weight. 4. Sleep hygiene with regular time in bed for 8 hours[address] Patient does not drive. Thank you very much for allowing me to participate in management of your patient. Sincerely, Chad Levin MD, PhD, FAASM Diplomat of [employer] Tablet Making Machine Operator Helper of [facility] [place] MMODL / IJN: [id number] /
== END | disposition home or self-care (01) ==
LOC: SLEEP 10:56
PROVIDERS: ATTEND Internal Medicine
DX: G47.33 Obstructive sleep apnea (adult) (pediatric) (principal); E66.9 Obesity, unspecified; E03.9 Hypothyroidism, unspecified; K21.9 Gastro-esophageal reflux disease without esophagitis; Z86.59 Personal history of other mental and behavioral disorders; Z86.69 Personal history of other diseases of the nervous system and sense organs; Z99.89 Dependence on other enabling machines and devices; Z79.899 Other long term (current) drug therapy; Z68.41 Body mass index [BMI] 40.0-44.9, adult

== ENCOUNTER → 2020-02-25 | Outpatient (CLI) | payer MEDICARE, OTHER | END | disposition home or self-care (01) | LOC: LABWHC1 12:00 | PROVIDERS: ATTEND Psychiatry & Neurology Neurology | DX: G40.209 Localization-related (focal) (partial) symptomatic epilepsy and epileptic syndromes with complex partial seizures, not intractable, without status epilepticus (principal) | CPT/HCPCS: 36415; 80183; 80185; 80201; 80235; 84295; 84450; 84460 ==

== ENCOUNTER → 2020-03-13 | Outpatient (CLI) | payer MEDICARE, OTHER ==
[2020-03-13 18:00] LABS: Phenytoin (Dilantin) 25.8 ug/mL (10.0-20.0)
== END | disposition home or self-care (01) ==
LOC: LABWHC1 08:55
PROVIDERS: ATTEND Psychiatry & Neurology Neurology
DX: G40.209 Localization-related (focal) (partial) symptomatic epilepsy and epileptic syndromes with complex partial seizures, not intractable, without status epilepticus (principal)
CPT/HCPCS: 36415; 80183; 80185; 84295; 84450; 84460

== ENCOUNTER → 2020-03-22 | Outpatient (CLI) | payer MEDICARE, OTHER | END | disposition home or self-care (01) | LOC: LABWHC1 09:35 | PROVIDERS: ATTEND Psychiatry & Neurology Neurology | DX: G40.209 Localization-related (focal) (partial) symptomatic epilepsy and epileptic syndromes with complex partial seizures, not intractable, without status epilepticus (principal) | CPT/HCPCS: 36415; 80185 ==

== ENCOUNTER → 2020-05-19 | Outpatient (CLI) | payer MEDICARE, OTHER ==
[2020-05-19 11:23] LABS: Basophils % (A) 1 %; Eosinophils # (A) 0.2 k/uL (0-0.7); Eosinophils % (A) 5 %; HCT 40.5 % (34.0-46.0); HGB 12.5 gm/dL (11.4-16.0); Hypochromasia Slight; Lymphocytes % (A) 24 %; MCH 32.5 pg (25.0-35.0); MCHC 30.8 g/dL (31.0-37.0); MCV 105.2 fL (80.0-100.0); Macrocytosis Slight; Mean Platelet Volume 7.4; Monocytes # (A) 0.3 k/uL (0-1.0); Monocytes % (A) 7 %; Neutrophils # (A) 2.7 k/uL (1.3-7.7); Neutrophils % (A) 62 %; Platelet Count 182 k/uL (150-450); RBC 3.85 m/uL (3.80-5.40); RDW 12.4 % (11.5-15.5); WBC 4.3 k/uL (3.8-10.6)
[2020-05-19 20:10] LABS: African American GFR (CKD) 95.5 (60.0-200.0); Albumin 4.1 g/dL (3.80-4.90); Albumin/Globulin Ratio 1.58 (1.60-3.17); Anion Gap 9.5 mmol/L (4.00-12.00); BUN/Creat Ratio 21.25 Ratio (12.00-20.00); Carbon Dioxide 23.5 mmol/L (21.6-31.8); Globulin 2.6 g/dL (1.6-3.3); Non-African American GFR(CKD) 82.4 (60.0-200.0); Potassium 4.2 mmol/L (3.5-5.5); Total Bilirubin 0.2 mg/dL (0.3-1.2); Total Protein 6.7 g/dL (6.2-8.2)
== END | disposition home or self-care (01) ==
LOC: LABWHC1 09:42
PROVIDERS: ATTEND General Practice
DX: I10 Essential (primary) hypertension (principal); G30.0 Alzheimer's disease with early onset
CPT/HCPCS: 36415; 80053; 82465; 82607; 84443; 85025

== ENCOUNTER 2020-07-02 10:34 | Emergency (ER) | payer MEDICARE, OTHER ==
[2020-07-02 10:45] VITALS: RESP 18
[2020-07-02] MEDS ORDERED: TOPICAL SKIN ADHESIVE 1 EACH AMP TOPICAL ONE (10:47)
--- NOTE | 2020-07-02 10:53 | ED ---
General Adult HPI - General Chief complaint: Fall Stated complaint: Fall Time Seen by Provider: 07/02/20 10:39 Source: patient, family, RN notes reviewed Mode of arrival: EMS Limitations: altered mental status, physical limitation - History of Present Illness Initial comments: Patient is a very pleasant 55-year-old female presenting to the emergency dep artment following a fall. Patient reportedly was on a shower chair when she fell over. Unclear patient lost consciousness. Patient complains of discomfort near her right eye. No other area of discomfort. Patient did sustain small laceration. Unclear last tetanus immunization. Father is present and states he believes it is very likely up-to-date and will follow this up with his home and make sure she receives it within the next week if it is not up-to-date. He states right sided weakness is chronic and unchanged. - Related Data Home Medications Medication Instructions Recorded Confirmed Cholecalciferol [Vitamin D3 (25 2,000 unit PO BID@0600,2000 01/22/14 07/02/20 Mcg = 1000 Iu)] Cyanocobalamin [Vitamin B-12] 1,000 mcg PO Q48H 01/22/14 07/02/20 LORazepam [Ativan] 1 mg PO ONCE PRN 01/22/14 07/02/20 Levothyroxine Sodium [Synthroid] 50 mcg PO DAILY@0601/22/14 07/02/20 Nystatin 100,000 Unit/gm Powd 1 applic TOPICAL BID@0600,1900 01/22/14 07/02/20 [Mycostatin Powder] OXcarbazepine [Trileptal] 600 mg PO DAILY@1800 01/22/14 07/02/20 Phenytoin Sodium Extended 100 mg PO DAILY@0601/22/14 07/02/20 [Dilantin] Topiramate 200 mg PO DAILY@0601/22/14 07/02/20 Lacosamide [Vimpat] 100 mg PO DAILY@0600 05/03/17 07/02/20 Topiramate [Topamax] 50 mg PO HS@1900 05/03/17 07/02/20 Lacosamide [Vimpat] 50 mg PO BID@0612/25/17 07/02/20 Andi-Gest 500mg Chewable 500 mg PO DAILY@0607/02/20 07/02/20 Donepezil HCl [Aricept] 10 mg PO DAILY@1600 07/02/20 07/02/20 Lacosamide [Vimpat] 200 mg PO HS@1900 07/02/20 07/02/20 Lactose-Reduced Food [Ensure Plus] 1 can PO DAILY PRN 07/02/20 07/02/20 Memantine [Namenda] 10 mg PO DAILY@1900 07/02/20 07/02/20 OXcarbazepine [Trileptal] 900 mg PO DAILY@0600 07/02/20 07/02/20 Omeprazole 20 mg PO DAILY@1900 07/02/20 07/02/20 Phenytoin Sodium Extended 60 mg PO HS@1900 07/02/20 07/02/20 [Dilantin] Tinactin 1% [place] Powder 1 applic TOPICAL BID@0600,1900 07/02/20 07/02/20 Topiramate [Topamax] 100 mg PO DAILY@1900 07/02/20 07/02/20 clonazePAM [Klonopin ODT Wafer] 0.25 mg PO HS@1900 07/02/20 07/02/20 Allergies Allergy/AdvReac Type Severity Reaction Status Date / Time No Known Allergies Allergy Verified 07/02/20 11:19 Review of Systems ROS Statement: Those systems with pertinent positive or pertinent negative responses have been documented in the HPI. ROS Other: All systems not noted in ROS Statement are negative. Constitutional: Denies: fever Eyes: Reports: as per HPI ENT: Denies: ear pain Respiratory: Denies: cough Cardiovascular: Denies: chest pain Endocrine: Denies: fatigue Gastrointestinal: Denies: abdominal pain Genitourinary: Denies: dysuria Musculoskeletal: Denies: back pain Skin: Denies: rash Neurological: Denies: weakness Past Medical History Past Medical History: Seizure Disorder Additional Past Medical History / Comment(s): Mild retardation, CEREBRAL PALSY, CVA at , CVA 2010, right sided weakness History of Any Multi-Drug Resistant Organisms: None Reported Past Surgical History: Ventriculoperitoneal Shunt Past Psychological History: No Psychological Hx Reported Past Alcohol Use History: None Reported Past Drug Use History: None Reported - Past Family History Father Family Medical History: No Reported History General Exam Limitations: altered mental status, physical limitation General appearance: alert, in no apparent distress Head exam: Present: other (Right periorbital soft tissue swelling and ecchy mosis. Only mild tenderness) Eye exam: Present: normal appearance, PERRL, EOMI. Absent: nystagmus ENT exam: Present: normal oropharynx Neck exam: Present: normal inspection. Absent: tenderness Respiratory exam: Present: normal lung sounds bilaterally Cardiovascular Exam: Present: regular rate, normal rhythm GI/Abdominal exam: Present: soft. Absent: tenderness Extremities exam: Present: full ROM, other (Right arm atrophy). Absent: tenderness Neurological exam: Present: alert, motor sensory deficit (Right upper and lower extremity weakness that is reported as chronic and unchanged) Psychiatric exam: Present: normal affect, normal mood Skin exam: Present: other (Right upper eyelid laceration) Course Vital Signs 07/02/20 10:42 Temperature 97.2 F L Pulse Rate 79 Respiratory 18 Rate Blood Pressure 114/89 O2 Sat by Pulse 98 Oximetry Procedures - Laceration Laceration #1 Consent Obtained: verbal consent Indication: laceration Site: face Size (cm): 1 Description: linear Depth: simple, single layer Pre-repair: wound explored, irrigated extensively Type of Sutures: other (Closed with Dermabond) Patient Tolerated Procedure: well, no complications Medical Decision Making - Medical Decision Making Patient reevaluated. Patient and family updated. - Radiology Data Radiology results: report reviewed (Computed tomography scan brain and cervical spine show no acute process) Disposition Clinical Impression: Fall, Head injury, Laceration of face Disposition: HOME SELF-CARE Condition: Stable Instructions (If sedation given, give patient instructions): Head Injury (ED), Skin Adhesive Care (ED) Additional Instructions: Please follow-up with primary care physician in the next couple days for recheck. Please ensure that tetanus immunization is up-to-date and if not patient will need it within the week. Return for change in mental status, pain or bleeding, weakness, worsening symptoms or other concerns. Is patient prescribed a controlled substance at d/c from ED?: No Referrals: Dm Nuñez MD [Primary Care Provider] - 1-2 days Time of Disposition: 12:11
--- NOTE | 2020-07-02 11:48 | CT ---
EXAMINATION TYPE: CT brain na steele con DATE OF EXAM: 07/02/2020 COMPARISON: 10/08/2017 HISTORY: Fall CT DLP: 1666.[address] of the brain was performed. The ventricles, basal cisterns and sulci overlying the cerebral convexities demonstrate moderate enla rgement. There is widening of the interhemispheric fissure anteriorly. There is extensive parenchymal calcific ation involving the thalamus on the left side extending into the left temporal lobe. There is no midl ine shift. There is no mass effect. There is no sign of intracranial hemorrhage. There is a ventricul ar shunt catheter on the right side that has tip close to the right lateral ventricle. No mass effects are seen. If symptoms persist consider MRI. Osseous calvarium is intact. IMPRESSION: 1. Age related atrophic and chronic small vessel ischemic change without acute intracranial process seen at this time. CT Cervical Spine: Unenhanced CT of the cervical spine was performed with bone and soft tissue window settings submitted . Coronal and sagittal reconstruction is obtained. There is normal alignment and prevertebral soft tissues. There is exaggerated kyphosis. No evidence f or acute cervical fracture . Scattered degenerative disc disease and spondylosis. Biapical scarring . IMPRESSION: 1. No evidence for acute fracture or subluxation of the cervical spine.
[2020-07-02 12:28] VITALS: BP 141/75; PULSE 81; TEMP 97.6
== END 2020-07-02 13:01 | disposition home or self-care (01) ==
LOC: SUPCPDRO 10:34 → EC 10:34
DX: S01.111A Laceration without foreign body of right eyelid and periocular area, initial encounter (principal); R53.1 Weakness; G40.909 Epilepsy, unspecified, not intractable, without status epilepticus; G80.9 Cerebral palsy, unspecified; Z86.73 Personal history of transient ischemic attack (TIA), and cerebral infarction without residual deficits; Z79.899 Other long term (current) drug therapy; W07.XXXA Fall from chair, initial encounter; Y93.E1 Activity, personal bathing and showering; Y92.009 Unspecified place in unspecified non-institutional (private) residence as the place of occurrence of the external cause
CPT/HCPCS: 12011; 70450; 72125; 99284

== ENCOUNTER 2020-07-03 20:10 | Emergency (ER) | payer MEDICARE, OTHER ==
--- NOTE | 2020-07-03 21:04 | ED ---
Recheck HPI - General Chief Complaint: Recheck/Abnormal Lab/Rx Stated Complaint: Revisit, Fall yest, Vomiting, Drowsy Time Seen by Provider: 07/03/20 20:27 Source: patient, family Mode of arrival: wheelchair Limitations: altered mental status, physical limitation - History of Present Illness Initial Comments: 55yo female with hx of cerebral palsy presenting for chief complaint of vomiting after head injury yesterday. Patient fell while brushing teeth in the shower yesterday onto right side of face. No LOC no known anticoagulation therapy she was brought in for evaluation by caretakers. Patient had CT performed of the brain and cervical spine which revealed no acute abnormalities. Today patient ate yogurt this evening, and chief optometry service said that she vomited 5 minutes later as patient is vomiting the chief optometry service was asking her if she was ok and she states that she kept saying yes, yes yes. SHe states now she is not have repetitive answering. denies noting facial droop, new extremity weakness. Patient now appears to be at baseline per after school caregiver. denies additional complaints. - Related Data Home Medications Medication Instructions Recorded Confirmed Cholecalciferol [Vitamin D3 (25 2,000 unit PO BID@0600,199901/22/14 07/03/20 Mcg = 1000 Iu)] Cyanocobalamin [Vitamin B-12] 1,000 mcg PO Q48H 01/22/14 07/03/20 LORazepam [Ativan] 1 mg PO ONCE PRN 01/22/14 07/03/20 Levothyroxine Sodium [Synthroid] 50 mcg PO DAILY@0600 01/22/14 07/03/20 Nystatin 100,000 Unit/gm Powd 1 applic TOPICAL BID@0600,1900 01/22/14 07/03/20 [Mycostatin Powder] OXcarbazepine [Trileptal] 600 mg PO DAILY@1800 01/22/14 07/03/20 Phenytoin Sodium Extended 100 mg PO DAILY@0600 01/22/14 07/03/20 [Dilantin] Topiramate 200 mg PO DAILY@0600 01/22/14 07/03/20 Lacosamide [Vimpat] 100 mg PO DAILY@0600 05/03/17 07/03/20 Topiramate [Topamax] 50 mg PO HS@19005/03/17 07/03/20 Lacosamide [Vimpat] 50 mg PO BID@0600 12/25/17 07/03/20 Andi-Gest 500mg Chewable 500 mg PO DAILY@0600 07/02/20 07/03/20 Donepezil HCl [Aricept] 10 mg PO DAILY@1600 07/02/20 07/03/20 Lacosamide [Vimpat] 200 mg PO HS@1900 07/02/20 07/03/20 Lactose-Reduced Food [Ensure Plus] 1 can PO DAILY PRN 07/02/20 07/03/20 Memantine [Namenda] 10 mg PO DAILY@1900 07/02/20 07/03/20 OXcarbazepine [Trileptal] 900 mg PO DAILY@0600 07/02/20 07/03/20 Omeprazole 20 mg PO DAILY@1900 07/02/20 07/03/20 Phenytoin Sodium Extended 60 mg PO HS@1900 07/02/20 07/03/20 [Dilantin] Tinactin 1% [place] Powder 1 applic TOPICAL BID@0600,1900 07/02/20 07/03/20 Topiramate [Topamax] 100 mg PO DAILY@1900 07/02/20 07/03/20 clonazePAM [Klonopin ODT Wafer] 0.25 mg PO HS@1900 07/02/20 07/03/20 Acetaminophen Tab [Tylenol] 650 mg PO Q4-6H PRN 07/03/20 07/03/20 Allergies Allergy/AdvReac Type Severity Reaction Status Date / Time No Known Allergies Allergy Verified 07/03/20 20:21 Review of Systems ROS Statement: Those systems with pertinent positive or pertinent negative responses have been documented in the HPI. ROS Other: All systems not noted in ROS Statement are negative. Past Medical History Past Medical History: Seizure Disorder Additional Past Medical History / Comment(s): Mild retardation, CEREBRAL PALSY, CVA at , CVA 2010, right sided weakness History of Any Multi-Drug Resistant Organisms: None Reported Past Surgical History: Ventriculoperitoneal Shunt Past Psychological History: No Psychological Hx Reported Smoking Status: Never smoker Past Alcohol Use History: None Reported Past Drug Use History: None Reported - Past Family History Father Family Medical History: No Reported History General Exam - General Exam Comments Initial Comments: General: The patient is awake and alert, in no distress Eye: +3 mm pupils are equal, round and reactive to light, extra-ocular movements are intact. No nystagmus. There is normal conjunctiva bilaterally. No signs of icterus. Ears, nose, mouth and throat: There are moist mucous membranes and no oral lesions. no racoon or hall sign Neck: The neck is supple, there is no tenderness or JVD. Cardiovascular: There is a regular rate and rhythm. No murmur, rub or gallop is appreciated. Respiratory: Lungs are clear to auscultation, respirations are non-labored, breath sounds are equal. No wheezes, stridor, rales, or rhonchi. Gastrointestinal: Soft, non-distended, non-tender abdomen without masses or organomegaly noted. There is no rebound or guarding present. No CVA tenderness. Bowel sounds are unremarkable. Musculoskeletal: Normal ROM, no tenderness. Strength 5/5. Sensation intact. Pulses equal bilaterally 2+. Neurological: A&O x 1 (to self, not date or place). Responds appropriately to questions, no repetitive questioning or comment answers. Coordination appears grossly intact. Speech is normal-no slurred nor drawn out. Skin: Skin is warm and dry and no rashes. ecchymosis of the right side of face. Psychiatric: Cooperative, appropriate mood & affect, normal judgment. Limitations: altered mental status, physical limitation Course Vital Signs 07/03/20 20:14 Pulse Rate 56 L Respiratory 14 Rate Blood Pressure 123/79 O2 Sat by Pulse 98 Oximetry Medical Decision Making - Medical Decision Making 55yo cerebral palsy pt with [employer] shunt. Shunt appears in same position as the day prior mild hydrocephalus. Dr. Yee mentioned it is near edge of ventricle. patient has not had additional episodes of vomiting. since vomiting, chief optometry service states she has been normal. no changes. attempted to reach out to patient neurologist without success. discussed case with Rich Figueroa who is agreeable to care plan and discharge--he is aware of CT studies. chief optometry service aware of contacting patient neurologist tomorrow as well as primary care provider returning for any additional episodes of vomiting she states she is comfortable discharges patient is acting like her usual self and no additional episodes of vomiting. Disposition Clinical Impression: Vomiting, Head injury Disposition: HOME SELF-CARE Condition: Good Additional Instructions: Please use medication as discussed. Please call neurologist tomorrow to discussed CT results, if patient has additional episodes of vomiting please return to the ER immediately. Please return to emergency room if the symptoms increase or worsen or for any other concerns. Is patient prescribed a controlled substance at d/c from ED?: No Referrals: Dm Nuñez MD [Primary Care Provider] - 1-2 days Karen Chandra MD [REFERRING] - 1-2 days Time of Disposition: 21:35
--- NOTE | 2020-07-03 21:23 | CT ---
EXAMINATION TYPE: CT brain wo con DATE OF EXAM: 07/03/2020 COMPARISON: Yesterday HISTORY: vomiting following fall CT DLP: 1217.4 mGycm Automated exposure control for dose reduction was used. There is some cerebral cortical atrophy. There is enlargement of the ventricles. There is widening of the interhemispheric fissure anteriorly. There is cerebellar mild atrophy. 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 Unchanged. There is no midline shift. There is no sign of intracrani al hemorrhage. There is right side ventricular shunt catheter with the tip that is not definitely in the lateral ventricle. IMPRESSION: Cerebral atrophy. Mild hydrocephalus. The shunt catheter does not have the tip clearly in the right l ateral ventricle and could be malposition. No change.
[2020-07-03 21:47] VITALS: BP 120/75; PULSE 59; RESP 16; TEMP 97.9
[2020-07-03] MEDS ORDERED: BACITRACIN OINT 1 EACH PACKET TOPICAL ONE (22:40)
== END 2020-07-03 21:47 | disposition home or self-care (01) ==
LOC: EC 20:10
DX: S00.83XA Contusion of other part of head, initial encounter (principal); G80.9 Cerebral palsy, unspecified; G91.9 Hydrocephalus, unspecified; G40.909 Epilepsy, unspecified, not intractable, without status epilepticus; Z86.73 Personal history of transient ischemic attack (TIA), and cerebral infarction without residual deficits; Z79.899 Other long term (current) drug therapy; Z98.2 Presence of cerebrospinal fluid drainage device; W07.XXXA Fall from chair, initial encounter; Y93.E1 Activity, personal bathing and showering
CPT/HCPCS: 70450; 99284

== ENCOUNTER 2020-08-08 12:27 | Inpatient (IN) | payer MEDICARE, OTHER ==
--- NOTE | 2020-08-08 13:06 | ED ---
General Adult HPI - General Source: patient, family, RN notes reviewed, old records reviewed Mode of arrival: wheelchair Limitations: no limitations <Patrick Esteves - Last Filed: 08/08/20 13:08> <Fausto Perkins - Last Filed: 08/08/20 17:00> - General Chief complaint: Extremity Problem,Nontraumatic Stated complaint: facial swelling Time Seen by Provider: 08/08/20 12:35 - History of Present Illness Initial comments: This a 55-year-old female presents emergency Department from an adult foster care. Patient has a past history of cerebral palsy as well as a seizure disorder and some cognitive delay. Patient is brought in because over the last 3 days he's had she has had swelling around both arise more than the left than the right little facial swelling on the left as well as a swollen left arm. Patient denies any pain patient denies any visual disturbance.No recent history of any fevers or chills. Patient has had no difficulty breathing or shortness of breath patient denies any chest pain. Patient denies any abdominal pain according to the caregivers is been no vomiting or diarrhea. (Patrick Esteves) - Related Data Home Medications Medication Instructions Recorded Confirmed Cholecalciferol [Vitamin D3 (25 2,000 unit PO BID@0600,2000 01/22/14 08/08/20 Mcg = 1000 Iu)] Cyanocobalamin [Vitamin B-12] 1,000 mcg PO Q48H 01/22/14 08/08/20 LORazepam [Ativan] 1 mg PO DAILY PRN 01/22/14 08/08/20 Levothyroxine Sodium [Synthroid] 50 mcg PO DAILY@0601/22/14 08/08/20 Nystatin 100,000 Unit/gm Powd 1 applic TOPICAL BID@0600,1900 01/22/14 08/08/20 [Mycostatin Powder] OXcarbazepine [Trileptal] 600 mg PO HS@1800 01/22/14 08/08/20 Phenytoin Sodium Extended 100 mg PO DAILY@0600 01/22/14 08/08/20 [Dilantin] Topiramate 200 mg PO DAILY@0600 01/22/14 08/08/20 Lacosamide [Vimpat] 100 mg PO DAILY@0600 05/03/17 08/08/20 Topiramate [Topamax] 50 mg PO HS@1900 05/03/17 08/08/20 Lacosamide [Vimpat] 50 mg PO BID@0612/25/17 08/08/20 Andi-Gest 500mg Chewable 500 mg PO DAILY@0600 07/02/20 08/08/20 Donepezil HCl [Aricept] 10 mg PO DAILY@1600 07/02/20 08/08/20 Lacosamide [Vimpat] 200 mg PO HS@19007/02/20 08/08/20 Lactose-Reduced Food [Ensure Plus] 1 can PO DAILY PRN 07/02/20 08/08/20 Memantine [Namenda] 10 mg PO DAILY@189907/02/20 08/08/20 OXcarbazepine [Trileptal] 900 mg PO DAILY@0600 07/02/20 08/08/20 Omeprazole 20 mg PO DAILY@19007/02/20 08/08/20 Phenytoin Sodium Extended 60 mg PO HS@19007/02/20 08/08/20 [Dilantin] Tinactin 1% [place] Powder 1 applic TOPICAL BID@0600,189907/02/20 08/08/20 Topiramate [Topamax] 100 mg PO DAILY@189907/02/20 08/08/20 clonazePAM [Klonopin ODT Wafer] 0.25 mg PO HS@1900 07/02/20 08/08/20 Allergies Allergy/AdvReac Type Severity Reaction Status Date / Time No Known Allergies Allergy Verified 08/08/20 14:50 Review of Systems ROS Other: All systems not noted in ROS Statement are negative. <Patrick Esteves - Last Filed: 08/08/20 13:08> ROS Other: All systems not noted in ROS Statement are negative. <Fausto Perkins - Last Filed: 08/08/20 17:00> ROS Statement: Those systems with pertinent positive or pertinent negative responses have been documented in the HPI. Past Medical History Past Medical History: Seizure Disorder Additional Past Medical History / Comment(s): Mild retardation, CEREBRAL PALSY, CVA at , CVA 2010, right sided weakness History of Any Multi-Drug Resistant Organisms: None Reported Past Surgical History: Ventriculoperitoneal Shunt Past Psychological History: No Psychological Hx Reported Smoking Status: Never smoker Past Alcohol Use History: None Reported Past Drug Use History: None Reported - Past Family History Father Family Medical History: No Reported History <Patrick Esteves - Last Filed: 08/08/20 13:08> General Exam Limitations: no limitations <Patrick Esteves - Last Filed: 08/08/20 13:08> - General Exam Comments Initial Comments: GENERAL: Patient is well-developed and well-nourished. Patient is nontoxic and well- hydrated and is in no acute distress. ENT: Neck is soft and supple. No significant lymphadenopathy is noted. Oropharynx is clear. Moist mucous membranes. Neck has full range of motion without eliciting any pain. Patient has significant swelling to both eyelids bilaterally but much more on the left than the right. EYES: The sclera were anicteric and conjunctiva were pink and moist. Extraocular movements were intact and pupils were equal round and reactive to light. Eyelids were unremarkable. PULMONARY: Unlabored respirations. Good breath sounds bilaterally. No audible rales rhonchi or wheezing was noted. CARDIOVASCULAR: There is a regular rate and rhythm without any murmurs gallops or rubs. ABDOMEN: Soft and nontender with normal bowel sounds. SKIN: Skin is clear with no lesions or rashes and otherwise unremarkable. NEUROLOGIC: Patient is alert and oriented at baseline per caregiver. Cranial nerves II through XII are grossly intact. MUSCULOSKELETAL: Patient moving upper extremities as she normally does according to caregiver. Patient has some edema to the left arm. LYMPHATICS: No significant lymphadenopathy is noted PSYCHIATRIC: Normal psychiatric evaluation. (Patrick Esteves) Course Vital Signs 08/08/20 12:32 Temperature 98.3 F Pulse Rate 68 Respiratory 18 Rate Blood Pressure 109/76 O2 Sat by Pulse 93 L Oximetry Medical Decision Making - Lab Data Result diagrams: 08/08/20 14:15 08/08/20 14:15 <Fausto Perkins - Last Filed: 08/08/20 17:00> - Medical Decision Making Patient was sent out to me by previous shift physician. Briefly, patient is a [facility] resident presents to the emergency department for generalized edema since Friday. Had a fall recently bruising and swelling to the right side. Friday noted there was swelling to the left face. Patient had basic labs obtained. CBC showed multiple serial dina 0.8. Metabolic panel is grossly unremarkable. No hypercalcemia. TSH is normal. Phenytoin level is slightly subtherapeutic. Chest x-ray shows catheter course in the right side of the neck, patchy left by basilar atelectasis versus early infiltrate. Venous Doppler ultrasound of the left upper extremity soon shows superficial venous thrombosis of the left cephalic vein. No DVT of the left upper extremity. Computed tomography scan of the chest shows superior vena cava obstruction with questionable abnormal soft tissue at the level of the cavoatrial junction causing obstruction to venous drainage at the level of the superior vena cava. Case was discussed with Dr. Vaz of cardiothoracic surgery at [address] [place] [address] patient would be a candidate that can be admitted probably to our hospital with cardiothoracic consult. Dr. Vaz agreed to see patient on consult. Patient be admitted to Dr. Adhikari with cardiothoracic consult. (Fausto Perkins) - Lab Data Lab Results 08/08/20 08/08/20 Range/Units 14:15 14:15 WBC 6.0 (3.8-10.6) k/uL RBC 3.84 (3.80-5.40) m/uL Hgb 12.2 (11.4-16.0) gm/dL Hct 37.9 (34.0-46.0) % MCV 98.7 (80.0-100.0) fL MCH 31.7 (25.0-35.0) pg MCHC 32.1 (31.0-37.0) g/dL RDW 14.0 (11.5-15.5) % Plt Count 225 (150-450) k/uL MPV 7.2 Neutrophils % 68 % Lymphocytes % 14 % Monocytes % 8 % Eosinophils % 9 % Basophils % 1 % Neutrophils # 4.1 (1.3-7.7) k/uL Lymphocytes # 0.8 L (1.0-4.8) k/uL Monocytes # 0.5 (0-1.0) k/uL Eosinophils # 0.5 (0-0.7) k/uL Basophils # 0.0 (0-0.2) k/uL Hypochromasia Slight Sodium 136 L (137-145) mmol/L Potassium 4.0 (3.5-5.1) mmol/L Chloride 102 (98-107) mmol/L Carbon Dioxide 27 (22-30) mmol/L Anion Gap 7 mmol/L BUN 12 (7-17) mg/dL Creatinine 0.63 (0.52-1.04) mg/dL Est GFR (CKD-EPI)AfAm >90 (>60 ml/min/1.73 sqM) Est GFR (CKD-EPI)NonAf >90 (>60 ml/min/1.73 sqM) Glucose 97 (74-99) mg/dL Calcium 9.0 (8.4-10.2) mg/dL Total Bilirubin 0.7 (0.2-1.3) mg/dL AST 32 (14-36) U/L ALT 31 (4-34) U/L Alkaline Phosphatase 130 H (38-126) U/L Total Protein 7.5 (6.3-8.2) g/dL Albumin 3.6 (3.5-5.0) g/dL TSH 0.604 (0.465-4.680) mIU/L Phenytoin 4.9 ug/mL Disposition <Patrick Esteves - Last Filed: 08/08/20 13:08> Decision Time: 17:00 <Fausto Perkins - Last Filed: 08/08/20 17:00> Clinical Impression: SVC obstruction Disposition: ADMITTED IP TO THIS HOSP Condition: Fair Referrals: Dm Nuñez MD [Primary Care Provider] - 1-2 days
--- NOTE | 2020-08-08 13:46 | XR ---
EXAMINATION TYPE: XR chest 2V DATE OF EXAM: 08/08/2020 COMPARISON: 03/09/2019 HISTORY: 55 year-old female shortness of breath, difficulty breathing TECHNIQUE: AP and lateral views FINDINGS: This is to be a right-sided catheter coursing down the neck. The tip is not well seen, probably somew here near the upper SVC region. Heart normal size. Patient is obliqued towards the left. Some mild pa tchy left basilar opacity without pleural effusion. IMPRESSION: 1. Clinically correlate; there seems to be some type of catheter coursing down the right side of the neck. The tip is not well-seen, probably somewhere in the region of the upper SVC. 2. Patchy left basilar atelectasis versus early infiltrate.
[2020-08-08 14:30] LABS: Basophils % (A) 1 %; Eosinophils # (A) 0.5 k/uL (0-0.7); Eosinophils % (A) 9 %; HCT 37.9 % (34.0-46.0); HGB 12.2 gm/dL (11.4-16.0); Hypochromasia Slight; Lymphocytes # (A) 0.8 k/uL (1.0-4.8); Lymphocytes % (A) 14 %; MCH 31.7 pg (25.0-35.0); MCHC 32.1 g/dL (31.0-37.0); MCV 98.7 fL (80.0-100.0); Mean Platelet Volume 7.2; Monocytes # (A) 0.5 k/uL (0-1.0); Monocytes % (A) 8 %; Neutrophils # (A) 4.1 k/uL (1.3-7.7); Neutrophils % (A) 68 %; Platelet Count 225 k/uL (150-450); RBC 3.84 m/uL (3.80-5.40)
[2020-08-08 14:44] LABS: ALT 31 U/L (4-34); AST 32 U/L (14-36); African American GFR (CKD) >90 (>60 ml/min/1.73 sqM); Albumin 3.6 g/dL (3.5-5.0); Alkaline Phosphatase 130 U/L (38-126); Anion Gap 7 mmol/L; Blood Urea Nitrogen 12 mg/dL (7-17); Carbon Dioxide 27 mmol/L (22-30); Chloride 102 mmol/L (98-107); Glucose 97 mg/dL (74-99); Non-African American GFR(CKD) >90 (>60 ml/min/1.73 sqM); Phenytoin (Dilantin) 4.9 ug/mL; Sodium 136 mmol/L (137-145); Total Bilirubin 0.7 mg/dL (0.2-1.3); Total Protein 7.5 g/dL (6.3-8.2)
--- NOTE | 2020-08-08 15:03 | US ---
EXAMINATION TYPE: US venous doppler duplex UE LT DATE OF EXAM: 08/08/2020 COMPARISON: NONE CLINICAL HISTORY: Left arm swelling. Very difficult and limited exam SIDE PERFORMED: Left Grayscale, color doppler, spectral doppler imaging performed of the deep veins of the left upper extr emity. Left Arm: No sonographic evidence for DVT, limited evaluation due to patient body habitus and swellin g. Visualized portions of the left internal jugular vein, subclavian vein, the ulnar veins, radial ve ins, left basilic vein, brachial veins, axillary vein show waveforms, color flow and/or compressibili ty Positive for SVT in the left cephalic, low-level internal echoes with lack of color flow, vascular wa veforms, compressibility noted. Edema channels are noted within the subcutaneous soft tissues. IMPRESSION: Superficial venous thrombosis left cephalic vein. No evident deep venous thrombosis in the left upp er extremity as described.
[2020-08-08] MEDS ORDERED: RX INFO: IV CONTRAST WAS GIVEN 1 EACH MISC MISCELLANE PRN (15:06)
--- NOTE | 2020-08-08 15:55 | CT ---
EXAMINATION TYPE: CT chest w con DATE OF EXAM: 08/08/2020 COMPARISON: HISTORY: Left sided chest, arm and facial swelling. CT DLP: 408.3 mGycm Automated exposure control for dose reduction was used. CONTRAST: CT scan of the chest is performed with IV Contrast, patient injected with 100 mL of Isovue 300. FINDINGS: Large collateral serpiginous vessel suspected over the right chest extending over the right abdomen in the subcutaneous fat in the right breast. Injection in the right upper extremity shows co llateral flow over the right chest, posterior right hemithorax and about the shoulder, right subclavi an vein appears diminutive, there is filling of what is likely diminutive right jugular vein. At the expected site of the cavoatrial junction contrast column is no longer seen, there is some questionabl e abnormal soft tissue at this level, collateral flow noted along the diaphragm is filling the intrah epatic inferior vena cava. LUNGS: The lungs are grossly clear, there is no concerning parenchymal mass or nodule identified. T here is no pleural effusion or pneumothorax seen. The tracheobronchial tree is patent. MEDIASTINUM: There are no greater than 1 cm hilar or mediastinal lymph nodes. There is a pericardial effusion which measures approximately 14-18 mm on the inferior margin of the right heart. AORTA: No additional significant abnormality is seen. OTHER: Inferior vena cava is narrowed at the intrahepatic portion.. 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
[2020-08-08] MEDS ORDERED: LORazepam 2 MG/ML INJ IV PRN (16:57)
[2020-08-08] MEDS ORDERED: ONDANSETRON 4 MG/2 ML VIAL IVP PRN (16:57)
[2020-08-08] MEDS ORDERED: NALOXONE 0.4 MG/ML 1 ML VIAL IV PRN (16:57)
[2020-08-08 17:37] LABS: Appearance,Urine Cloudy (Clear); Bilirubin,Urine 1+ (Negative); Blood,Urine Negative (Negative); Calcium Oxalate Crystals,Urine Rare /hpf; Color,Urine Yellow; Glucose,Urine (UA) Negative (Negative); Ketones,Urine Negative (Negative); Leukocyte Esterase,Urine Small (Negative); Mucus,Urine Rare /hpf; Nitrite,Urine Negative (Negative); Protein,Urine 1+ (Negative); RBC,Urine <1 /hpf (0-5); Specific Gravity,Urine 1.032 (1.001-1.035); Squamous Epithelial Cell,Urine <1 /hpf (0-4); WBC,Urine 3 /hpf (0-5)
[2020-08-08] MEDS ORDERED: LORazepam 1 MG TAB PO PRN (20:24)
[2020-08-08] MEDS ORDERED: NON FORMULARY DRUG (Lactose-Reduced Food [Ensure Plus] 237 ML Liquid) PO PRN (20:24)
[2020-08-08] MEDS: CYANOCOBALAMIN 500 MCG TAB PO SCH (21:57)
[2020-08-08] MEDS: PHENYTOIN SODIUM EXTENDED 100 MG CAP PO SCH (22:05)
[2020-08-09] MEDS: CLOTRIMAZOLE 1% CREAM 15 GM TUBE TOPICAL SCH ×3 (05:35→19:20)
[2020-08-09] MEDS: NYSTATIN 100,000 UNIT/GM POWD 15 GM TOPICAL SCH ×2 (05:35→19:07)
[2020-08-09] MEDS: TOPIRAMATE 100 MG TAB PO SCH ×2 (05:36→19:19)
[2020-08-09] MEDS: OXcarbazepine 300 MG TAB PO SCH ×2 (05:36→17:08)
[2020-08-09] MEDS: PHENYTOIN SODIUM EXTENDED 100 MG CAP PO SCH ×2 (05:37→19:07)
[2020-08-09] MEDS: CHOLECALCIFEROL 25 MCG (1000 IU) TABLET PO SCH ×2 (05:49→21:44)
[2020-08-09] MEDS: LACOSAMIDE 50 MG TABLET PO SCH ×3 (05:49→21:44)
[2020-08-09] MEDS: LEVOTHYROXINE 50 MCG TAB PO SCH (05:49)
[2020-08-09] MEDS: CALCIUM CARBONATE 500 MG CHEWABLE PO SCH (05:49)
--- NOTE | 2020-08-09 08:32 | XR ---
Right wrist HISTORY: Trauma, pain 4 views of right wrist Bone mineralization is reduced and can limit sensitivity. Alignment is maintained. Remodeling, joint space loss present at the radiocarpal joint. There is soft tissue swelling. IMPRESSION: No fracture or dislocation. Low bone mineral, follow-up as indicated for persistent sympt oms.
[2020-08-09] MEDS: PANTOPRAZOLE 40 MG TABLET PO SCH (08:52)
--- NOTE | 2020-08-09 10:06 | P.GSCN ---
<Maria Elena Giles - Last Filed: 08/09/20 09:55> History of Present Illness Consult date: 08/09/20 Reason for Consult: SVC obstruction Requesting physician: Fausto Perkins History of present illness: This is a 55-year-old inactive female who comes from an adult foster care facility. 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 History was taken from the chart as there is no family present and the patient is a poor historian due to her cognitive delay. She was brought to [facility] emergency room yesterday apparently because she had increased swelling around her eyes over the last 3 days as well as swollen left arm. She denies any pain or shortness of breath. She had no other aggravating or alleviating symptoms. Chest x-ray demonstrated left basilar atelectasis versus early infiltrate, APPRAISER TIMBER shunt was seen coursing down the right side of the neck with tip possibly in the region of the upper SVC. Upper extremity Dopplers demonstrated superficial venous thrombosis in the left cephalic vein, but no evidence of DVT. CT the chest was completed demonstrating superior vena cava obstruction with evidence of collateral flow. Labs were essentially unremarkable except alkaline phosphatase 130. Due to CT findings Dr. Vaz from cardiothoracic surgery was called by the emergency room physicians for recommendations. The patient was admitted for further evaluation and treatment with consultation placed to Dr. Vaz as well as oncology. Review of Systems Review of systems was completed and was negative except as noted, however the patient is a poor historian - Constitutional Constitutional Comment(s): Denies any symptoms - EENT EENT Comment(s): Denies swelling of her face - Cardiovascular Cardiovascular Comment(s): Denies any chest pain or shortness of breath Past Medical History Past Medical History: CVA/TIA, Seizure Disorder, Thyroid Disorder Additional Past Medical History / Comment(s): Mild retardation, CEREBRAL PALSY, intrauterine stroke, CVA 2010, chronic right sided weakness History of Any Multi-Drug Resistant Organisms: None Reported Past Surgical History: Ventriculoperitoneal Shunt Past Anesthesia/Blood Transfusion Reactions: No Reported Reaction, Unable to Obtain Past Psychological History: No Psychological Hx Reported Smoking Status: Never smoker Past Alcohol Use History: None Reported Past Drug Use History: None Reported - Past Family History Father Family Medical History: No Reported History Medications and Allergies Home Medications Medication Instructions Recorded Confirmed Type Cholecalciferol [Vitamin D3 (25 2,000 unit PO BID@06,199901/22/14 08/08/20 History Mcg = 1000 Iu)] Cyanocobalamin [Vitamin B-12] 1,000 mcg PO Q48H 01/22/14 08/08/20 History LORazepam [Ativan] 1 mg PO DAILY PRN 01/22/14 08/08/20 History Levothyroxine Sodium [Synthroid] 50 mcg PO DAILY@0601/22/14 08/08/20 History Nystatin 100,000 Unit/gm Powd 1 applic TOPICAL BID@0600,189901/22/14 08/08/20 History [Mycostatin Powder] OXcarbazepine [Trileptal] 600 mg PO HS@1800 01/22/14 08/08/20 History Phenytoin Sodium Extended 100 mg PO DAILY@0601/22/14 08/08/20 History [Dilantin] Topiramate 200 mg PO DAILY@0601/22/14 08/08/20 History Lacosamide [Vimpat] 100 mg PO DAILY@0605/03/17 08/08/20 History Topiramate [Topamax] 50 mg PO HS@189905/03/17 08/08/20 History Lacosamide [Vimpat] 50 mg PO BID@0612/25/17 08/08/20 History Andi-Gest 500mg Chewable 500 mg PO DAILY@0607/02/20 08/08/20 History Donepezil HCl [Aricept] 10 mg PO DAILY@1600 07/02/20 08/08/20 History Lacosamide [Vimpat] 200 mg PO HS@1900 07/02/20 08/08/20 History Lactose-Reduced Food [Ensure Plus] 1 can PO DAILY PRN 07/02/20 08/08/20 History Memantine [Namenda] 10 mg PO DAILY@19007/02/20 08/08/20 History OXcarbazepine [Trileptal] 900 mg PO DAILY@0607/02/20 08/08/20 History Omeprazole 20 mg PO DAILY@1900 07/02/20 01/26/21 History Phenytoin Sodium Extended 60 mg PO HS@189907/02/20 08/08/20 History [Dilantin] Tinactin 1% [place] Powder 1 applic TOPICAL BID@0600,189907/02/20 08/08/20 History Topiramate [Topamax] 100 mg PO DAILY@189907/02/20 08/08/20 History clonazePAM [Klonopin ODT Wafer] 0.25 mg PO HS@189907/02/20 08/08/20 History Allergies Allergy/AdvReac Type Severity Reaction Status Date / Time No Known Allergies Allergy Verified 08/08/20 14:50 Surgical - Exam Vital Signs Temp Pulse Resp BP Pulse Ox 98.3 F 68 18 109/76 93 L 08/08/20 12:32 08/08/20 12:32 08/08/20 12:32 08/08/20 12:32 08/08/20 12:32 - General well nourished, no distress, no pain - Eyes normal ocular movement - Neck Neck appears thick but no swelling noted no masses, no bruits, trachea midline - Respiratory Lungs sounds clear bilaterally. Respirations even, nonlabored. Currently on r oom air with oxygen saturation 92-94%. No chest wall deformities. No clubbing or cyanosis present. - Cardiovascular S1, S2 present. Regular rate and rhythm. Palpable peripheral pulses bilaterally. No edema present. No calf pain or tenderness noted. - Abdomen Abdomen: soft, non tender, bowel sounds - Genitourinary Deferred - Rectum Deferred - Integumentary no rash, no growths - Musculoskeletal Right-sided weakness present - Psychiatric Speech is slow, patient cannot tell me where she's had or what year it is oriented to person Results - Labs 08/08/20 14:15 08/08/20 14:15 Abnormal Lab Results - Last 24 Hours (Table) 08/08/20 08/08/20 08/08/20 Range/Units 14:15 14:15 16:50 Lymphocytes # 0.8 L (1.0-4.8) k/uL Sodium 136 L (137-145) mmol/L Alkaline Phosphatase 130 H (38-126) U/L Urine Appearance Cloudy H (Clear) Urine Protein 1+ H (Negative) Urine Bilirubin 1+ H (Negative) Ur Leukocyte Esterase Small H (Negative) Calcium Oxalate Crystal Rare H (None) /hpf Urine Mucus Rare H (None) /hpf Diabetes panel 08/08/20 Range/Units 14:15 Sodium 136 L (137-145) mmol/L Potassium 4.0 (3.5-5.1) mmol/L Chloride 102 (98-107) mmol/L Carbon Dioxide 27 (22-30) mmol/L BUN 12 (7-17) mg/dL Creatinine 0.63 (0.52-1.04) mg/dL Glucose 97 (74-99) mg/dL Calcium 9.0 (8.4-10.2) mg/dL AST 32 (14-36) U/L ALT 31 (4-34) U/L Alkaline Phosphatase 130 H (38-126) U/L Total Protein 7.5 (6.3-8.2) g/dL Albumin 3.6 (3.5-5.0) g/dL Thyroid panel 08/08/20 Range/Units 14:15 TSH 0.604 (0.465-4.680) mIU/L Calcium panel 08/08/20 Range/Units 14:15 Calcium 9.0 (8.4-10.2) mg/dL Albumin 3.6 (3.5-5.0) g/dL Pituitary panel 08/08/20 Range/Units 14:15 Sodium 136 L (137-145) mmol/L Potassium 4.0 (3.5-5.1) mmol/L Chloride 102 (98-107) mmol/L Carbon Dioxide 27 (22-30) mmol/L BUN 12 (7-17) mg/dL Creatinine 0.63 (0.52-1.04) mg/dL Glucose 97 (74-99) mg/dL Calcium 9.0 (8.4-10.2) mg/dL TSH 0.604 (0.465-4.680) mIU/L Adrenal panel 08/08/20 Range/Units 14:15 Sodium 136 L (137-145) mmol/L Potassium 4.0 (3.5-5.1) mmol/L Chloride 102 (98-107) mmol/L Carbon Dioxide 27 (22-30) mmol/L BUN 12 (7-17) mg/dL Creatinine 0.63 (0.52-1.04) mg/dL Glucose 97 (74-99) mg/dL Calcium 9.0 (8.4-10.2) mg/dL Total Bilirubin 0.7 (0.2-1.3) mg/dL AST 32 (14-36) U/L ALT 31 (4-34) U/L Alkaline Phosphatase 130 H (38-126) U/L Total Protein 7.5 (6.3-8.2) g/dL Albumin 3.6 (3.5-5.0) g/dL - Imaging Chest x-ray: report reviewed, image reviewed CT scan - chest: report reviewed, image reviewed Assessment and Plan Assessment: 1. SVC obstruction, possibly chronic, evidence of collateral flow 2. Recent fall from standing in June 2020 3. History of cerebral palsy with mild retardation 4. Seizure disorder 5. Intrauterine stroke as well as stroke in 2010 with continued right-sided weakness 6. APPRAISER TIMBER shunt 7. Hypothyroidism 8. Obstructive sleep apnea Plan: The patient was seen and examined at the bedside. Chart/diagnostics were reviewed. The patient is currently in no distress, oxygenating well on room air, denies any pain or shortness of breath or any other concerns. The case was discussed with Dr. Vaz who will see the patient today. At this time we recommend continued monitoring. Medical management of her comorbidities per primary care service. More recommendations to follow once Dr. Vaz has seen the patient. Thank you for this consult Time with Patient: Greater than 30 <Quentin Vaz - Last Filed: 08/10/20 08:32> Surgical - Exam Vital Signs Temp Pulse Resp BP Pulse Ox 98.3 F 68 18 109/76 93 L 08/08/20 12:32 08/08/20 12:32 08/08/20 12:32 08/08/20 12:32 08/08/20 12:32 Results - Labs 08/10/20 05:19 08/08/20 14:15 Abnormal Lab Results - Last 24 Hours (Table) 08/09/20 08/10/20 08/10/20 Range/Units 23:58 05:19 05:19 RBC 3.44 L 3.42 L (3.80-5.40) m/uL Hgb 11.0 L 10.9 L (11.4-16.0) gm/dL Hct 33.8 L 33.9 L (34.0-46.0) % Lymphocytes # 0.9 L (1.0-4.8) k/uL APTT 90.6 H (22.0-30.0) sec Assessment and Plan Plan: The patient was seen and examined. I agree with the above assessment and plan. The patient is a 55 year old female, who is an adult foster care resident secondary to a history of CP and mild mental retardation, non-ambulatory, with a history of multiple medical problems, who was admitted to the hospital after being noted to have some upper extremity and facial swelling. Her stepmother was at the bedside to provide additional history. Apparently she fell forward out of her wheelchair and struck her face about a month ago. CT scan of the chest is concerning for dimunitive SVC with significant collaterals, suggestive of SVC syndrome. I do not see a definitive mediastinal mass on this study. Clinically, the patient appears to be stable with evidence of adequate collateral venous return. There is no indication for surgical intervention on our part, and there is no desire for surgical intervention per the patient's family. Additional care as directed by the primary service.
[2020-08-09] MEDS ORDERED: IOPAMIDOL CONTRAST (ORAL USE) VIAL PO PRN (15:58)
--- NOTE | 2020-08-09 16:00 | P.CONS ---
History of Present Illness - Reason for Consult Consult date: 08/09/20 Concern of SVC Syndrome Requesting physician: Fausto Perkins - Chief Complaint Facial and arm swelling - History of Present Illness Mrs. Malcolm is a 55-year-old inactive female who comes from an adult foster care facility. 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 She was brought to [facility] emergency room because of the persistent swelling Patient states the swelling has been present a while, you can also notice collateral vessels on chest that appear to have been present for quite some time. CT was very vague and not definitely identifying a mass, CTS was consulted and will await their input. In the interim will further evaluate with CT abdomen and Pelvis. In the event that this is an underlying malignancy would hold off on steroids if she is for the most part mildly symtomatic as in certain cases (i.e. lymphoma) steroids may affect result accuracy. She denies any pain or shortness of breath. 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 Upper extremity Dopplers demonstrated superficial venous thrombosis in the left cephalic vein, but no evidence of DVT. Review of Systems All systems: negative Constitutional: Reports as per HPI Past Medical History Past Medical History: CVA/TIA, Seizure Disorder, Thyroid Disorder Additional Past Medical History / Comment(s): Mild retardation, CEREBRAL PALSY, intrauterine stroke, CVA 2011, chronic right sided weakness History of Any Multi-Drug Resistant Organisms: None Reported Past Surgical History: Ventriculoperitoneal Shunt Past Anesthesia/Blood Transfusion Reactions: No Reported Reaction, Unable to Obtain Past Psychological History: No Psychological Hx Reported Smoking Status: Never smoker Past Alcohol Use History: None Reported Past Drug Use History: None Reported - Past Family History Father Family Medical History: No Reported History Medications and Allergies Home Medications Medication Instructions Recorded Confirmed Type Cholecalciferol [Vitamin D3 (25 2,000 unit PO BID@0600,199901/22/14 08/08/20 History Mcg = 1000 Iu)] Cyanocobalamin [Vitamin B-12] 1,000 mcg PO Q48H 01/22/14 08/08/20 History LORazepam [Ativan] 1 mg PO DAILY PRN 01/22/14 08/08/20 History Levothyroxine Sodium [Synthroid] 50 mcg PO DAILY@0600 01/22/14 08/08/20 History Nystatin 100,000 Unit/gm Powd 1 applic TOPICAL BID@0600,1900 01/22/14 08/08/20 History [Mycostatin Powder] OXcarbazepine [Trileptal] 600 mg PO HS@1800 01/22/14 08/08/20 History Phenytoin Sodium Extended 100 mg PO DAILY@0601/22/14 08/08/20 History [Dilantin] Topiramate 200 mg PO DAILY@0600 01/22/14 08/08/20 History Lacosamide [Vimpat] 100 mg PO DAILY@0600 05/03/17 08/08/20 History Topiramate [Topamax] 50 mg PO HS@19005/03/17 08/08/20 History Lacosamide [Vimpat] 50 mg PO BID@0600 12/25/17 08/08/20 History Andi-Gest 500mg Chewable 500 mg PO DAILY@0600 07/02/20 08/08/20 History Donepezil HCl [Aricept] 10 mg PO DAILY@1600 07/02/20 08/08/20 History Lacosamide [Vimpat] 200 mg PO HS@1900 07/02/20 08/08/20 History Lactose-Reduced Food [Ensure Plus] 1 can PO DAILY PRN 07/02/20 08/08/20 History Memantine [Namenda] 10 mg PO DAILY@19007/02/20 08/08/20 History OXcarbazepine [Trileptal] 900 mg PO DAILY@0600 07/02/20 08/08/20 History Omeprazole 20 mg PO DAILY@189907/02/20 08/08/20 History Phenytoin Sodium Extended 60 mg PO HS@19007/02/20 08/08/20 History [Dilantin] Tinactin 1% [place] Powder 1 applic TOPICAL BID@0600,1900 07/02/20 08/08/20 History Topiramate [Topamax] 100 mg PO DAILY@1900 07/02/20 08/08/20 History clonazePAM [Klonopin ODT Wafer] 0.25 mg PO HS@189907/02/20 08/08/20 History Allergies Allergy/AdvReac Type Severity Reaction Status Date / Time No Known Allergies Allergy Verified 08/08/20 14:50 Physical Exam Vitals: Vital Signs Temp Pulse Pulse Resp BP BP Pulse Ox 08/09/20 11:57 97.9 F 81 17 110/74 93 L 08/09/20 06:00 97.8 F 71 16 121/88 92 L 08/08/20 16:00 98.3 F 72 18 118/72 94 L Intake and Output 08/09/20 08/09/20 08/09/20 06:59 14:59 22:59 Intake Total 240 Balance 240 Intake: Oral 240 Other: Voiding Method Bedside Commode # Voids 1 - General well nourished, no distress, no pain - Eyes normal ocular movement - Neck: Supple - Respiratory: Lungs sounds clear bilaterally. Respirations even, non-labored. - Cardiovascular: S1, S2 present. Regular rate and rhythm. Palpable peripheral pulses bilaterally. No edema present. No calf pain or tenderness noted. - Abdomen: soft, non tender, bowel sounds - Integumentary:no rash, no growths - Musculoskeletal: Right-sided weakness present - Psychiatric: is able to tell her current situation, slow. Results CBC & Chem 7: 08/08/20 14:15 08/08/20 14:15 Labs: Abnormal Lab Results - Last 24 Hours (Table) 08/08/20 Range/Units 16:50 Urine Appearance Cloudy H (Clear) Urine Protein 1+ H (Negative) Urine Bilirubin 1+ H (Negative) Ur Leukocyte Esterase Small H (Negative) Calcium Oxalate Crystal Rare H (None) /hpf Urine Mucus Rare H (None) /hpf CT scan - chest: report reviewed Venous US: report reviewed Assessment and Plan (1) SVC obstruction Current Visit: Yes Status: Acute Code(s): I87.1 - COMPRESSION OF VEIN SNOMED Code(s): 688386959 (2) Cerebral palsy Current Visit: No Status: Acute Code(s): G80.9 - CEREBRAL PALSY, UNSPECIFIED SNOMED Code(s): 809668871 (3) Hypothyroidism Current Visit: No Status: Acute Code(s): E03.9 - HYPOTHYROIDISM, UNSPECIFIED SNOMED Code(s): 14493179 (4) Intractable epilepsy Current Visit: No Status: Acute Code(s): G40.919 - EPILEPSY, UNSP, INTRACTABLE, WITHOUT STATUS EPILEPTICUS SNOMED Code(s): 546071994 (5) Obstructive sleep apnea Current Visit: No Status: Acute Code(s): G47.33 - OBSTRUCTIVE SLEEP APNEA (ADULT) (PEDIATRIC) SNOMED Code(s): 33292590 (6) Recurrent seizures Current Visit: No Status: Acute Code(s): G40.909 - EPILEPSY, UNSP, NOT INTRACTABLE, WITHOUT STATUS EPILEPTICUS SNOMED Code(s): 27815397 Plan: Assessment and Recommendations: Upper Extremity and Facial Swelling: - Concern of underlying mediastinal pathology representing as picture of SVC syndrome. - CT Chest: Reveals evidence of collateral vasculature although no definitive mass reported. Therefore CTS has been consulted to further evaluate. Await further evaluation. - CT abdomen/pelvis ordered to further evaluate if there is concern of underlying malignancy. Physician Attest: I have completed the full hitory and physical and agree with above dictation, dictated as a scribe Addendum: Review of CT abdomen and pelvis tonight and mention of further colla terals as well as iliac vein thrombosis. I have ordered venous doppler to further evaluate.
[2020-08-09] MEDS: DONEPEZIL 10 MG TAB PO SCH (17:08)
[2020-08-09] MEDS: clonazePAM 0.5 MG TAB PO SCH (19:05)
[2020-08-09] MEDS: TOPIRAMATE 25 MG TAB PO SCH (19:06)
[2020-08-09] MEDS: MEMANTINE 10 MG TAB PO SCH (19:19)
[2020-08-09] MEDS: SODIUM CHLORIDE 0.9% 1,000 ML IV SCH (19:24)
--- NOTE | 2020-08-09 19:38 | CT ---
EXAMINATION TYPE: CT abdomen pelvis w con DATE OF EXAM: 08/09/2020 COMPARISON: None HISTORY: Further evaluation of Incuvo CT DLP: 1205.4 mGycm Automated exposure control for dose reduction was used. CONTRAST: Performed with IV Contrast, patient injected with 100 mL of Isovue 300. Images obtained from the diaphragm to the floor the pelvis with oral and intravenous contrast. The liver and spleen are intact. Gallbladder is intact. Stomach is intact. Heart size is normal. Ther e is mild pericardial effusion. There is no evidence of hepatic mass. There is no adrenal mass. Kidneys show satisfactory contrast opacification. There is no hydronephrosis. There is 5 mm calculus lower pole left kidney. The ureters are not dilated. There is no retroperitoneal adenopathy. Bladder distends smoothly. There is no evidence of free fluid in the pelvis. There is some rectal fecal impac tion. Rectum measures 6 cm. There are multiple subcutaneous densities posteriorly in the right side low back and that are apparen tly large superficial veins with also varicose superficial veins over the anterior abdomen. There is lack of contrast in the left and right iliac veins. Iliac vein thrombosis is possible. There is arter ial flow in the iliac and femoral arteries. There is no evidence of a bowel obstruction. There is no free air. There is no ascites. Lumbar vertebra have normal alignment. There is no compression fracture. The bony pelvis is intact. IMPRESSION: Dilated superficial subcutaneous veins could be collateral flow from iliac vein thrombosis. This coul d be confirmed by ultrasound if clinically indicated. Mild rectal fecal impaction. Small pericardial effusion.
--- NOTE | 2020-08-09 22:29 | US ---
EXAMINATION TYPE: US venous doppler duplex LE DATE OF EXAM: 08/09/2020 9:59 PM COMPARISON: NONE CLINICAL HISTORY: Iliac vein thrombosis seen ct. SIDE PERFORMED: TECHNIQUE: The lower extremity deep venous system is examined utilizing real time linear array sonog mika with graded compression, doppler sonography and color-flow sonography. VESSELS IMAGED: Common Femoral Vein Deep Femoral Vein Greater Saphenous Vein * Femoral Vein Popliteal Vein Small Saphenous Vein * Proximal Calf Veins (* superficial vessels) Right Leg: Left Leg: IMPRESSION: There is no evidence of deep vein thrombosis in the left leg. There is evidence of acute and chronic deep vein thrombosis in the right leg. This is seen in the fem oral and popliteal veins. The superior extent into the iliac vein is not evaluated.
--- NOTE | 2020-08-09 23:20 | P.HPIM ---
History of Present Illness H&P Date: 08/09/20 Chief Complaint: Swelling of the face History of presenting complaint: This is a 55-year-old patient followed by a visiting physician Dr. Dm messina. Patient's mother at the bedside. She lives at the [facility]. Patient lost walking 2010. Patient is able to feed herself with the left arm. Right arm is chronically weak. And it was developed. Patient fell down around [place] on the right side of the face and just has been off since then. Patient now presents with swelling of thet he face and left arm swelling. Computed tomography scan of the ear did show evidence of superior vena cava syndrome. Patient is slightly short of breath. No fever no chills. Otherwise able to tolerate her diet. Patient able to answer some questions. Otherwise m ost of the history is obtained by the stepmother at the bedside. Review of systems: GEN.: Tired EYES: None HEENT: Face fullness NECK: None RESPIRATORY: None CARDIOVASCULAR: None GASTROINTESTINAL: None GENITOURINARY: None MUSCULOSKELETAL: Left arm swelling LYMPHATICS: None HEMATOLOGICAL: None PSYCHIATRY: None NEUROLOGICAL: Under developed right arm. Cerebral palsy Past medical history to include: Stroke, seizure disorder, hypothyroid, cerebral palsy, stroke in 2010 with the right-sided weakness. 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 Social history: Lives at the [facility]. No history of smoking or alcohol. Stepmother helps out Family history: Reviewed, noncontributory to presentation Physical examination: VITAL SIGNS: 98.3, 68, 18, 109/76, 93% room and-upon presentation GENERAL: BMI 27.9, laying in bed, slightly tired. EYES: Pupils equal. Conjunctiva normal. HEENT: [A bit swollen face HEART: First and second heart sounds are normal; mild edema. LUNGS: Respiratory rate increased; decreased breath sound. ABDOMEN: Soft, nontender, liver spleen not palpable, no masses palpable. PSYCH: Able tonsil simple questionsl. EXTREMITY: Swelling of the left upper extremity NEUROLOGICAL: [Cranial nerves grossly intact; no facial asymmetry, under developed right arm LYMPHATICS: No lymph nodes palpable in the axilla and neck INVESTIGATIONS, reviewed in the clinical context: White count 6.0 hemoglobin 12.2 platelets 225 lymphocytes 0.8 potassium 4 creatinine 0.63 Coronavirus [PCR]-not detected Chest x-ray film personally reviewed by me-possible left basilar infiltrate Doppler ultrasound-superficial venous thrombosis of the left cephalic vein. Computed tomography scan of the chest with contrast-large collection of 7% patient has collateral vessels over the right chest. Some pericardial effusion. Inferior vena cava, narrowed at the intrahepatic portion. Assessment: -New onset of superior vena cava syndrome. This point exact cause unknown. -Superficial venous thrombosis of the left Cephulac remained -Epilepsy disorder -Hypothyroid -Some cognitive impairment from cerebral palsy -Chronic cerebral palsy -Chronic medical debility. Patient non ambulatory -BINDER SORTER shunt Plan: Consultation was made to radiation oncology, oncology, cardiothoracic surgery. Home medications resumed. Care was discussed with the patient and mother the bedside. Past Medical History Past Medical History: CVA/TIA, Seizure Disorder, Thyroid Disorder Additional Past Medical History / Comment(s): Mild retardation, CEREBRAL PALSY, intrauterine stroke, CVA 2010, chronic right sided weakness History of Any Multi-Drug Resistant Organisms: None Reported Past Surgical History: Ventriculoperitoneal Shunt Past Anesthesia/Blood Transfusion Reactions: No Reported Reaction, Unable to Obtain Past Psychological History: No Psychological Hx Reported Smoking Status: Never smoker Past Alcohol Use History: None Reported Past Drug Use History: None Reported - Past Family History Father Family Medical History: No Reported History Medications and Allergies Home Medications Medication Instructions Recorded Confirmed Type Cholecalciferol [Vitamin D3 (25 2,000 unit PO BID@0600,199901/22/14 08/08/20 History Mcg = 1000 Iu)] Cyanocobalamin [Vitamin B-12] 1,000 mcg PO Q48H 01/22/14 08/08/20 History LORazepam [Ativan] 1 mg PO DAILY PRN 01/22/14 08/08/20 History Levothyroxine Sodium [Synthroid] 50 mcg PO DAILY@0601/22/14 08/08/20 History Nystatin 100,000 Unit/gm Powd 1 applic TOPICAL BID@0600,1900 01/22/14 08/08/20 History [Mycostatin Powder] OXcarbazepine [Trileptal] 600 mg PO HS@1800 01/22/14 08/08/20 History Phenytoin Sodium Extended 100 mg PO DAILY@0600 01/22/14 08/08/20 History [Dilantin] Topiramate 200 mg PO DAILY@0601/22/14 08/08/20 History Lacosamide [Vimpat] 100 mg PO DAILY@0600 05/03/17 08/08/20 History Topiramate [Topamax] 50 mg PO HS@19005/03/17 08/08/20 History Lacosamide [Vimpat] 50 mg PO BID@0600 12/25/17 08/08/20 History Andi-Gest 500mg Chewable 500 mg PO DAILY@0600 07/02/20 08/08/20 History Donepezil HCl [Aricept] 10 mg PO DAILY@1600 07/02/20 08/08/20 History Lacosamide [Vimpat] 200 mg PO HS@19007/02/20 08/08/20 History Lactose-Reduced Food [Ensure Plus] 1 can PO DAILY PRN 07/02/20 08/08/20 History Memantine [Namenda] 10 mg PO DAILY@19007/02/20 08/08/20 History OXcarbazepine [Trileptal] 900 mg PO DAILY@0600 07/02/20 08/08/20 History Omeprazole 20 mg PO DAILY@1900 07/02/20 08/08/20 History Phenytoin Sodium Extended 60 mg PO HS@19007/02/20 08/08/20 History [Dilantin] Tinactin 1% [place] Powder 1 applic TOPICAL BID@0600,0 07/02/20 08/08/20 History Topiramate [Topamax] 100 mg PO DAILY@19007/02/20 08/08/20 History clonazePAM [Klonopin ODT Wafer] 0.25 mg PO HS@1900 07/02/20 08/08/20 History Allergies Allergy/AdvReac Type Severity Reaction Status Date / Time No Known Allergies Allergy Verified 08/08/20 14:50 Physical Exam Vitals: Vital Signs Temp Pulse Pulse Resp BP BP Pulse Ox 08/09/20 06:00 97.8 F 71 16 121/88 92 L 08/08/20 16:00 98.3 F 72 18 118/72 94 L 08/08/20 12:32 98.3 F 68 18 109/76 93 L Intake and Output 08/08/20 08/09/20 08/09/20 22:59 06:59 14:59 Other: Voiding Method Bedside Commode Bedside Commode # Voids 1 # Bowel Movements 0 Results CBC & Chem 7: 08/08/20 14:15 08/08/20 14:15 Labs: Abnormal Lab Results - Last 24 Hours (Table) 08/08/20 08/08/20 08/08/20 Range/Units 14:15 14:15 16:50 Lymphocytes # 0.8 L (1.0-4.8) k/uL Sodium 136 L (137-145) mmol/L Alkaline Phosphatase 130 H (38-126) U/L Urine Appearance Cloudy H (Clear) Urine Protein 1+ H (Negative) Urine Bilirubin 1+ H (Negative) Ur Leukocyte Esterase Small H (Negative) Calcium Oxalate Crystal Rare H (None) /hpf Urine Mucus Rare H (None) /hpf
[2020-08-09] MEDS ORDERED: HEPARIN SODIUM,PORCINE 5,000 UNIT/ML 1 ML VIAL IV ONE (23:29)
[2020-08-09] MEDS ORDERED: HEPARIN SODIUM,PORCINE 5,000 UNIT/ML 1 ML VIAL IV PRN (23:29)
[2020-08-10] MEDS: SODIUM CHLORIDE 0.9% 1,000 ML IV SCH ×3 (00:20→17:38)
[2020-08-10] MEDS: HEPARIN SOD,PORK IN 0.45% NACL 25,000 UNIT in 0.45% NACL 1 250ML.BAG IV SCH (00:21)
[2020-08-10 00:33] LABS: Basophils # (A) 0.1 k/uL (0-0.2); Basophils % (A) 1 %; Eosinophils # (A) 0.5 k/uL (0-0.7); Eosinophils % (A) 8 %; HCT 33.8 % (34.0-46.0); Lymphocytes # (A) 0.9 k/uL (1.0-4.8); Lymphocytes % (A) 17 %; MCHC 32.6 g/dL (31.0-37.0); MCV 98.3 fL (80.0-100.0); Mean Platelet Volume 7.4; Monocytes # (A) 0.4 k/uL (0-1.0); Monocytes % (A) 8 %; Neutrophils # (A) 3.6 k/uL (1.3-7.7); Neutrophils % (A) 65 %; Platelet Count 226 k/uL (150-450); RBC 3.44 m/uL (3.80-5.40); RDW 13.9 % (11.5-15.5); WBC 5.5 k/uL (3.8-10.6)
[2020-08-10 00:40] LABS: INR 1.1 (<1.2); Partial Thromboplastin Time 26.1 sec (22.0-30.0); Prothrombin Time 11.5 sec (9.0-12.0)
[2020-08-10] MEDS: PANTOPRAZOLE 40 MG TABLET PO SCH (05:41)
[2020-08-10] MEDS: LACOSAMIDE 50 MG TABLET PO SCH ×3 (05:41→19:14)
[2020-08-10] MEDS: CHOLECALCIFEROL 25 MCG (1000 IU) TABLET PO SCH ×2 (05:42→19:14)
[2020-08-10] MEDS: NYSTATIN 100,000 UNIT/GM POWD 15 GM TOPICAL SCH ×2 (05:42→19:15)
[2020-08-10] MEDS: LEVOTHYROXINE 50 MCG TAB PO SCH (05:42)
[2020-08-10] MEDS: CALCIUM CARBONATE 500 MG CHEWABLE PO SCH (05:42)
[2020-08-10] MEDS: CLOTRIMAZOLE 1% CREAM 15 GM TUBE TOPICAL SCH ×2 (05:43→19:15)
[2020-08-10] MEDS: OXcarbazepine 300 MG TAB PO SCH ×2 (05:43→17:38)
[2020-08-10] MEDS: PHENYTOIN SODIUM EXTENDED 100 MG CAP PO SCH ×2 (05:44→19:15)
[2020-08-10] MEDS: TOPIRAMATE 100 MG TAB PO SCH ×2 (05:45→19:15)
[2020-08-10 06:23] LABS: Basophils % (A) 1 %; Eosinophils # (A) 0.5 k/uL (0-0.7); Eosinophils % (A) 9 %; HCT 33.9 % (34.0-46.0); HGB 10.9 gm/dL (11.4-16.0); Lymphocytes # (A) 1.3 k/uL (1.0-4.8); Lymphocytes % (A) 22 %; MCH 31.7 pg (25.0-35.0); MCHC 32.1 g/dL (31.0-37.0); Macrocytosis Slight; Mean Platelet Volume 7.6; Monocytes # (A) 0.4 k/uL (0-1.0); Monocytes % (A) 6 %; Neutrophils # (A) 3.4 k/uL (1.3-7.7); Neutrophils % (A) 60 %; Platelet Count 236 k/uL (150-450); RBC 3.42 m/uL (3.80-5.40); RDW 14.3 % (11.5-15.5); WBC 5.7 k/uL (3.8-10.6)
--- NOTE | 2020-08-10 09:37 | P.CONS ---
History of Present Illness - Reason for Consult Consult date: 08/09/20 SVC syndrome Requesting physician: Moe Adhikari - Chief Complaint facial / arm swelling - History of Present Illness The patient is a 55-year-old female with a history of cerebral palsy, seizure disorder and remote history of VA shunt. She presented to the hospital with complaints of increased left arm and left facial swelling. There was concern for underlying SVC syndrome. Much of the history is obtained from the patient's stepmother who was present during our consultation. 3 days prior to her hospitalization on August 08, it was reported by her [facility] that the patient experienced increased swelling in the face and arm on the left side. She was not reporting any dyspnea or chest pain. She underwent a CT scan of the chest on August 08 revealing significant collateral vessels including large superficial vessels along the right chest wall. There were no lung lesions or mediastinal lymph nodes. There was a small pericardial effusion, and some soft tissue possible at the level of the aorto-caval junction where the SVC seemed to taper off. A left upper extremity Doppler revealed a superficial venous thrombosis involving the cephalic vein, but the exam was limited overall. Bilateral lower extremity Doppler revealed acute and chronic right lower extremity DVT. CT scan of the abdomen and pelvis revealed some decreased contrast in the bilateral iliac veins with concern for possible thrombosis as well as increased feces in rectum with possible impaction. At this time, the patient does respond to questions. Her daughter states she is typically very alert, but is currently tired and has no appetite. She reports no pain but this is typical for the patient, as she has not reported pain when previously braking bones. She has no dyspnea and denies headache or nausea. Her mother reported her having a brief seizure today that lasted less than 1 minute. She states she was on blood thinners previously but has been off for some time now. Review of Systems Constitutional: Denies chills, Denies chronic headaches, Denies fever Eyes: denies blurred vision, denies bulging eye Ears, nose, mouth and throat: Denies epistaxis, Denies headache Cardiovascular: Denies chest pain, Denies dyspnea on exertion Gastrointestinal: Reports constipation, Reports loss of appetite, Denies abdominal pain, Denies heartburn Genitourinary: Denies flank pain Musculoskeletal: Denies neck pain Past Medical History Past Medical History: CVA/TIA, Seizure Disorder, Thyroid Disorder Additional Past Medical History / Comment(s): Mild retardation, CEREBRAL PALSY, intrauterine stroke, CVA 2010, chronic right sided weakness History of Any Multi-Drug Resistant Organisms: None Reported Past Surgical History: Ventriculoperitoneal Shunt Past Anesthesia/Blood Transfusion Reactions: No Reported Reaction, Unable to Obtain Past Psychological History: No Psychological Hx Reported Smoking Status: Never smoker Past Alcohol Use History: None Reported Past Drug Use History: None Reported - Past Family History Father Family Medical History: No Reported History Medications and Allergies Home Medications Medication Instructions Recorded Confirmed Type Cholecalciferol [Vitamin D3 (25 2,000 unit PO BID@0600,199901/22/14 08/08/20 History Mcg = 1000 Iu)] Cyanocobalamin [Vitamin B-12] 1,000 mcg PO Q48H 01/22/14 08/08/20 History LORazepam [Ativan] 1 mg PO DAILY PRN 01/22/14 08/08/20 History Levothyroxine Sodium [Synthroid] 50 mcg PO DAILY@59901/22/14 08/08/20 History Nystatin 100,000 Unit/gm Powd 1 applic TOPICAL BID@0600,1900 01/22/14 08/08/20 History [Mycostatin Powder] OXcarbazepine [Trileptal] 600 mg PO HS@1800 01/22/14 08/08/20 History Phenytoin Sodium Extended 100 mg PO DAILY@0601/22/14 08/08/20 History [Dilantin] Topiramate 200 mg PO DAILY@0601/22/14 08/08/20 History Lacosamide [Vimpat] 100 mg PO DAILY@0605/03/17 08/08/20 History Topiramate [Topamax] 50 mg PO HS@19005/03/17 08/08/20 History Lacosamide [Vimpat] 50 mg PO BID@0612/25/08/08/20 History Andi-Gest 500mg Chewable 500 mg PO DAILY@0600 07/02/20 08/08/20 History Donepezil HCl [Aricept] 10 mg PO DAILY@1600 07/02/20 08/08/20 History Lacosamide [Vimpat] 200 mg PO HS@1900 07/02/20 08/08/20 History Lactose-Reduced Food [Ensure Plus] 1 can PO DAILY PRN 07/02/20 08/08/20 History Memantine [Namenda] 10 mg PO DAILY@1900 07/02/20 08/08/20 History OXcarbazepine [Trileptal] 900 mg PO DAILY@0600 07/02/20 08/08/20 History Omeprazole 20 mg PO DAILY@1900 07/02/20 08/08/20 History Phenytoin Sodium Extended 60 mg PO HS@189907/02/20 08/08/20 History [Dilantin] Tinactin 1% [place] Powder 1 applic TOPICAL BID@0600,19007/02/20 08/08/20 History Topiramate [Topamax] 100 mg PO DAILY@189907/02/20 08/08/20 History clonazePAM [Klonopin ODT Wafer] 0.25 mg PO HS@19007/02/20 08/08/20 History Allergies Allergy/AdvReac Type Severity Reaction Status Date / Time No Known Allergies Allergy Verified 08/08/20 14:50 Physical Exam Vitals: Vital Signs Temp Pulse Resp BP Pulse Ox 08/10/20 04:35 98.4 F 70 99/65 93 L 08/09/20 20:02 98.6 F 75 18 114/81 98 08/09/20 11:57 97.9 F 81 17 110/74 93 L Intake and Output 08/09/20 08/10/20 08/10/20 22:59 06:59 14:59 Intake Total 300 57.731 Balance 300 57.731 Intake: Intake, IV Titration 57.731 Amount Heparin Sod,Pork in 0.45% 57.731 NaCl 25,000 unit In 0.45 % NaCl 1 250ml.bag @ 12 UNITS/KG/HR 7.784 mls/hr IV .Q24H [facility] Rx#: [id number] Oral 300 Other: # Voids 0 2 # Bowel Movements 0 - Constitutional General appearance: no acute distress - EENT Eyes: EOMI (left facial swelling - slightly asymmetric), PERRLA ENT: hearing grossly normal - Neck Neck: no lymphadenopathy - Respiratory Respiratory: bilateral: CTA - Cardiovascular Rhythm: regular - Integumentary Integumentary: no calor, no cellulitis - Neurologic Neurologic: CNII-XII intact - Musculoskeletal Musculoskeletal: right sided weakness (chronic) - Psychiatric Psychiatric: appropriate affect Results CBC & Chem 7: 08/10/20 05:19 08/08/20 14:15 Labs: Abnormal Lab Results - Last 24 Hours (Table) 08/09/20 08/10/20 08/10/20 Range/Units 23:58 05:19 05:19 RBC 3.44 L 3.42 L (3.80-5.40) m/uL Hgb 11.0 L 10.9 L (11.4-16.0) gm/dL Hct 33.8 L 33.9 L (34.0-46.0) % Lymphocytes # 0.9 L (1.0-4.8) k/uL APTT 90.6 H (22.0-30.0) sec CT scan - abdomen: report reviewed, image reviewed CT scan - chest: report reviewed, image reviewed CT scan - pelvis: report reviewed, image reviewed Assessment and Plan Assessment: The patient is a 55-year-old female with a history of cerebral palsy, seizure disorder and remote history of VA shunt. She presented to the hospital with complaints of increased left arm and left facial swelling. There was concern f or underlying SVC syndrome. Plan: 1. SVC Narrowing: Reviewed in further detail with radiology, and do not feel there is any abnormal mass in the mediastinum. Possible scarring of the SVC is seen which is likely chronic. Curious if this could be iatrogenic from VA shunt (non-functional per mother in law). No role for radiotherapy. 2. Left facial / upper arm swelling: Unlikely related to SVC issue, but could be related to SVT in left cephalic vein - also US of LUE was suboptimal. 2. No evidence of malignancy on my review of images. Time with Patient: Greater than 30
[2020-08-10 12:22] LABS: African American GFR (CKD) >90 (>60 ml/min/1.73 sqM); Anion Gap 7 mmol/L; Blood Urea Nitrogen 8 mg/dL (7-17); Calcium 8.4 mg/dL (8.4-10.2); Carbon Dioxide 23 mmol/L (22-30); Chloride 101 mmol/L (98-107); Glucose 90 mg/dL (74-99); Non-African American GFR(CKD) >90 (>60 ml/min/1.73 sqM); Potassium 3.7 mmol/L (3.5-5.1); Sodium 131 mmol/L (137-145)
[2020-08-10 13:38] VITALS: BMI 27.9
--- NOTE | 2020-08-10 16:18 | P.GSCN ---
History of Present Illness Consult date: 08/10/20 Reason for Consult: Right Iliac vein DVT History of present illness: This is a 55-year-old patient female who comes from an adult foster care f [facility]. 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 History was taken from the chart as there is no family present and the patient is a poor historian due to her cognitive delay. She was brought to [facility] emergency room 2 days ago because of increased swelling around her eyes over the last 3 days as well as swollen left arm. Her caregiver states that she did have a fall in June and she did hit the left side and has evidence of bruising. . 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 Upper extremity Dopplers demonstrated superficial venous thrombosis in the left cephalic vein, but no evidence of DVT. CT the chest was completed demonstrating superior vena cava obstruction with evidence of collateral flow. CT of the abdomen show dilated superficial subcutaneous veins could be collateral flow from the iliac vein thrombosis. Bilateral lower extremity venous Doppler completed no evidence of deep vein thrombosis in the left leg. There is evidence of acute and chronic deep vein thrombosis in the right leg that is seen in the femoral and popliteal veins. The superior extent into the iliac vein is not evaluated. Vascular surgery has been consulted regarding the iliac vein thrombosis. The patient denies any abdominal pain, nausea, or vomiting. She denies any pain to bilateral lower upper extremities. She has full range of motion. Review of Systems 14 point review systems was completed all pertinent positives and negatives as stated in the HPI. Past Medical History Past Medical History: CVA/TIA, Seizure Disorder, Thyroid Disorder Additional Past Medical History / Comment(s): Mild retardation, CEREBRAL PALSY, intrauterine stroke, CVA 2010, chronic right sided weakness History of Any Multi-Drug Resistant Organisms: None Reported Past Surgical History: Ventriculoperitoneal Shunt Past Anesthesia/Blood Transfusion Reactions: No Reported Reaction, Unable to Obtain Past Psychological History: No Psychological Hx Reported Smoking Status: Never smoker Past Alcohol Use History: None Reported Past Drug Use History: None Reported - Past Family History Father Family Medical History: No Reported History Medications and Allergies Home Medications Medication Instructions Recorded Confirmed Type Cholecalciferol [Vitamin D3 (25 2,000 unit PO BID@06,199901/22/14 08/08/20 History Mcg = 1000 Iu)] Cyanocobalamin [Vitamin B-12] 1,000 mcg PO Q48H 01/22/14 08/08/20 History LORazepam [Ativan] 1 mg PO DAILY PRN 01/22/14 08/08/20 History Levothyroxine Sodium [Synthroid] 50 mcg PO DAILY@0601/22/14 08/08/20 History Nystatin 100,000 Unit/gm Powd 1 applic TOPICAL BID@0600,0 01/22/14 08/08/20 History [Mycostatin Powder] OXcarbazepine [Trileptal] 600 mg PO HS@1800 01/22/14 08/08/20 History Phenytoin Sodium Extended 100 mg PO DAILY@0601/22/14 08/08/20 History [Dilantin] Topiramate 200 mg PO DAILY@0601/22/14 08/08/20 History Lacosamide [Vimpat] 100 mg PO DAILY@0605/03/17 08/08/20 History Topiramate [Topamax] 50 mg PO HS@19005/03/17 08/08/20 History Lacosamide [Vimpat] 50 mg PO BID@0612/25/17 08/08/20 History Andi-Gest 500mg Chewable 500 mg PO DAILY@0600 07/02/20 08/08/20 History Donepezil HCl [Aricept] 10 mg PO DAILY@1600 07/02/20 08/08/20 History Lacosamide [Vimpat] 200 mg PO HS@1900 07/02/20 08/08/20 History Lactose-Reduced Food [Ensure Plus] 1 can PO DAILY PRN 07/02/20 08/08/20 History Memantine [Namenda] 10 mg PO DAILY@189907/02/20 08/08/20 History OXcarbazepine [Trileptal] 900 mg PO DAILY@0600 07/02/20 08/08/20 History Omeprazole 20 mg PO DAILY@189907/02/20 08/08/20 History Phenytoin Sodium Extended 60 mg PO HS@1900 07/02/20 08/08/20 History [Dilantin] Tinactin 1% [place] Powder 1 applic TOPICAL BID@0600,0 07/02/20 08/08/20 History Topiramate [Topamax] 100 mg PO DAILY@1900 07/02/20 08/08/20 History clonazePAM [Klonopin ODT Wafer] 0.25 mg PO HS@1900 07/02/20 08/08/20 History Allergies Allergy/AdvReac Type Severity Reaction Status Date / Time No Known Allergies Allergy Verified 08/08/20 14:50 Surgical - Exam Vital Signs Temp Pulse Resp BP Pulse Ox 98.3 F 68 18 109/76 93 L 08/08/20 12:32 08/08/20 12:32 08/08/20 12:32 08/08/20 12:32 08/08/20 12:32 General appearance: The patient is alert, oriented, appears in no acute distress. HET: Head is normocephalic with left facial and eyelid swelling Neck: Supple without lymphadenopathy. Trachea midline. Heart: S1 S2. Regular rate and rhythm. Lungs: No crackles or wheezes are heard. Abdomen: Soft, nontender, nondistended with bowel sounds. Extremities: Normal skin color and turgor. Left upper extremity was full range of motion and strong grasp. Swelling to left upper extremity. Right upper extremity with weakness, bilateral palpable radial pulses. Bilateral lower extremities warm to touch with good capillary refill, palpable femoral and dorsalis pedis pulses. Right lower extremity swelling. Neurological: Patient answers questions appropriately, however has noticeable learning disability. 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 Upper extremity Dopplers demonstrated superficial venous thrombosis in the left cephalic vein, but no evidence of DVT. CT the chest was completed demonstrating superior vena cava obstruction with evidence of collateral flow. CT of the abdomen show dilated superficial subcutaneous veins could be collateral flow from the iliac vein thrombosis. Bilateral lower extremity venous Doppler completed no evidence of deep vein thrombosis in the left leg. There is evidence of acute and chronic deep vein thrombosis in the right leg that is seen in the femoral and popliteal veins. The superior extent into the iliac vein is not evaluated. - Labs 08/10/20 05:19 08/10/20 05:19 Abnormal Lab Results - Last 24 Hours (Table) 08/09/20 08/10/20 08/10/20 Range/Units 23:58 05:19 05:19 RBC 3.44 L 3.42 L (3.80-5.40) m/uL Hgb 11.0 L 10.9 L (11.4-16.0) gm/dL Hct 33.8 L 33.9 L (34.0-46.0) % Lymphocytes # 0.9 L (1.0-4.8) k/uL APTT 90.6 H (22.0-30.0) sec Assessment and Plan Assessment: 1. Right lower extremity deep vein thrombosis in the femoral and popliteal veins. Possible iliac venous thrombosis. 2. Superficial venous throbosis left cephalic vein. 3. 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 Recent fall June 2020 5. History of cerebral palsy with mild retardation 6. Seizure disorder 7. PERIPHERAL EDP EQUIPMENT OPERATOR shunt 8. Hypothyroidism Plan: The patient was seen and examined with Dr. Henderson. He reviewed imaging. Will order a CT of the abdomen and pelvis with venous phase to rule out iliac vein thrombus. Continue with medical management and recommendations from cardiovascular surgery and hematology. Further recommendations to follow. Thank you for this consultation allowing us take part in the plan of care of your patient during her hospital stay. The impression and plan of care has been dictated as directed. Dr. Henderson I performed a history and examination of this patient, discussed the same with the dictator. I agree with the dictator's note ,documented as a scribe. Any additional findings or plans will be noted.
[2020-08-10] MEDS: DONEPEZIL 10 MG TAB PO SCH (17:38)
[2020-08-10] MEDS: CYANOCOBALAMIN 500 MCG TAB PO SCH (19:14)
[2020-08-10] MEDS: clonazePAM 0.5 MG TAB PO SCH (19:14)
[2020-08-10] MEDS: MEMANTINE 10 MG TAB PO SCH (19:15)
[2020-08-10] MEDS: TOPIRAMATE 25 MG TAB PO SCH (19:16)
--- NOTE | 2020-08-10 19:27 | CT ---
EXAMINATION TYPE: CT abdomen pelvis w con DATE OF EXAM: 08/10/2020 COMPARISON: 08/09/2020 HISTORY: Iliac vein thrombus. CT DLP: 1364 mGycm Automated exposure control for dose reduction was used. TECHNIQUE: Helical acquisition of images was performed from the lung bases through the pelvis. CONTRAST: Performed without Oral Contrast and with IV Contrast, patient injected with 100ml mL of Iso hailey 300. FINDINGS: LUNG BASES: Trace bilateral pleural effusions, greater than left, redemonstrated. LIVER/GB: No significant abnormality is appreciated. PANCREAS: No significant abnormality is seen. SPLEEN: No significant abnormality is seen. ADRENALS: No significant abnormality is seen. KIDNEYS: No significant abnormality is seen. PERITONEAL CAVITY: No pneumoperitoneum or peritoneal fluid. RETROPERITONEAL ADENOPATHY: None visualized REPRODUCTIVE ORGANS: No significant abnormality is seen URINARY BLADDER: No significant abnormality is seen. PELVIC ADENOPATHY: None visualized. OSSEOUS STRUCTURES: No significant abnormality is seen. BOWEL: No significant abnormality is seen. VASCULATURE: There is a low-attenuation filling defect occluding and mildly-expanding the bony struct ures: right common femoral vein, right external iliac vein, and right common iliac vein. These findin gs are consistent with occlusive deep venous thrombus. Results were called just now to the [facility], with read back. IMPRESSION: RIGHT HEMIPELVIC OCCLUSIVE VENOUS THROMBUS.
--- NOTE | 2020-08-10 21:22 | P.PN ---
Subjective Progress Note Date: 08/10/20 Principal diagnosis: SVC Objective - Vital Signs Vital signs: Vital Signs Temp 98.6 F 08/10/20 20:17 Pulse 67 08/10/20 20:17 Resp 18 08/10/20 20:17 BP 129/82 08/10/20 20:17 Pulse Ox 97 08/10/20 20:17 Intake & Output 08/10/20 08/10/20 08/11/20 06:59 18:59 06:59 Intake Total 657.731 Balance 657.731 Weight 64.864 kg Intake: Intake, IV Titration 57.731 Amount Heparin Sod,Pork in 0.45% 57.731 NaCl 25,000 unit In 0.45 % NaCl 1 250ml.bag @ 12 UNITS/KG/HR 7.784 mls/hr IV .Q24H [facility] Rx#: [id number] Oral 600 Other: Voiding Method Diaper Incontinent # Voids 2 3 # Bowel Movements 0 - Exam - General well nourished, no distress, no pain - Eyes normal ocular movement - Neck: Supple - Respiratory: Lungs sounds clear bilaterally. Respirations even, non-labored. - Cardiovascular: S1, S2 present. Regular rate and rhythm. Palpable peripheral pulses bilaterally. No edema present. No calf pain or tenderness noted. - Abdomen: soft, non tender, bowel sounds - Integumentary:no rash, no growths - Musculoskeletal: Right-sided weakness present - Psychiatric: is able to tell her current situation, slow. - Labs CBC & Chem 7: 08/10/20 05:19 08/10/20 05:19 Labs: Abnormal Lab Results - Last 24 Hours (Table) 08/09/20 08/10/20 08/10/20 Range/Units 23:58 05:19 05:19 RBC 3.44 L 3.42 L (3.80-5.40) m/uL Hgb 11.0 L 10.9 L (11.4-16.0) gm/dL Hct 33.8 L 33.9 L (34.0-46.0) % Lymphocytes # 0.9 L (1.0-4.8) k/uL APTT 90.6 H (22.0-30.0) sec Sodium (137-145) mmol/L 08/10/20 08/10/20 Range/Units 05:19 13:45 RBC (3.80-5.40) m/uL Hgb (11.4-16.0) gm/dL Hct (34.0-46.0) % Lymphocytes # (1.0-4.8) k/uL APTT 53.1 H (22.0-30.0) sec Sodium 131 L (137-145) mmol/L Assessment and Plan (1) SVC obstruction Current Visit: Yes Status: Acute Code(s): I87.1 - COMPRESSION OF VEIN SNOMED Code(s): 515401564 (2) Cerebral palsy Current Visit: No Status: Acute Code(s): G80.9 - CEREBRAL PALSY, UNSPECIFIED SNOMED Code(s): 616898605 (3) Hypothyroidism Current Visit: No Status: Acute Code(s): E03.9 - HYPOTHYROIDISM, UNSPECIFIED SNOMED Code(s): 21217760 (4) Intractable epilepsy Current Visit: No Status: Acute Code(s): G40.919 - EPILEPSY, UNSP, INTRACTABLE, WITHOUT STATUS EPILEPTICUS SNOMED Code(s): 662785371 (5) Obstructive sleep apnea Current Visit: No Status: Acute Code(s): G47.33 - OBSTRUCTIVE SLEEP APNEA (ADULT) (PEDIATRIC) SNOMED Code(s): 65113436 (6) Recurrent seizures Current Visit: No Status: Acute Code(s): G40.909 - EPILEPSY, UNSP, NOT INTRACTABLE, WITHOUT STATUS EPILEPTICUS SNOMED Code(s): 95262649 Plan: Assessment and Recommendations: Upper Extremity and Facial Swelling: - Concern of underlying mediastinal pathology representing as picture of SVC syndrome. - CT Chest: Reveals evidence of collateral vasculature although no definitive mass reported. Therefore CTS has been consulted to further evaluate. Await further evaluation. - Review of CT abdomen and pelvis tonight and mention of further collaterals as well as iliac vein thrombosis.Venous doppler to further evaluate did not reveal any evidence of DVT. Dr. Enriquez did evaluate and recommended repeat CT abd and pelvis with venous flow and this did indeed reveal thrombus, patient is on Heparin drip at this time. .
--- NOTE | 2020-08-11 00:43 | P.PN ---
Progress Note - Text Progress Note Date: 08/10/20 Chief Complaint: Swelling of the face History of presenting complaint: This is a 55-year-old patient followed by a visiting physician Dr. Dm messina. Patient's mother at the bedside. She lives at the [facility]. Patient lost walking 2010. Patient is able to feed herself with the left arm. Right arm is chronically weak. And it was developed. Patient fell down around [place] on the right side of the face and just has been off since then. Patie nt now presents with swelling of thet he face and left arm swelling. Computed tomography scan of the ear did show evidence of superior vena cava syndrome. Patient is slightly short of breath. No fever no chills. Otherwise able to tolerate her diet. Patient able to answer some questions. Otherwise most of the history is obtained by the stepmother at the bedside. Admitted with superior vena cava syndrome. Cause unknown. Superficial venous thrombosis of the left cephalic vein. On IV heparin. Today-caregiver the bedside. Patient tired. Spoke with Dr. Henderson. Review of systems cannot obtain patient other tired Active Medications Calcium Carbonate/Glycine (Calcium Carbonate 500 Mg Chewable) 500 mg PO DAILY@0600 [facility] Last Admin: 08/10/20 05:42 Dose: 500 mg Documented by: Cholecalciferol (Cholecalciferol 25 Mcg (1000 Iu) Tablet) 50 mcg PO BID@0600,2000 [facility] Last Admin: 08/10/20 19:14 Dose: 50 mcg Documented by: Clonazepam (Clonazepam 0.5 Mg Tab) 0.25 mg PO HS@1900 [facility] Last Admin: 08/10/20 19:14 Dose: 0.25 mg Documented by: Clotrimazole (Clotrimazole 1% Cream 15 Gm Tube) 1 applic TOPICAL BID@0600,1900 [facility] Last Admin: 08/10/20 19:15 Dose: 1 applic Documented by: Cyanocobalamin (Cyanocobalamin 500 Mcg Tab) 1,000 mcg PO Q48H [facility] Last Admin: 08/10/20 19:14 Dose: 1,000 mcg Documented by: Donepezil HCl (Donepezil 10 Mg Tab) 10 mg PO DAILY@1600 [facility] Last Admin: 08/10/20 17:38 Dose: 10 mg Documented by: Heparin Sodium (Porcine) (Heparin Sodium,Porcine 5,000 Unit/Ml 1 Ml Vial) 0 unit IV PER PROTOCOL PRN; Protocol PRN Reason: Low PTT Sodium Chloride (Saline 0.9%) 1,000 mls @ 20 mls/hr IV .Q24H [facility] Last Admin: 08/10/20 17:38 Dose: 20 mls/hr Documented by: Heparin Sodium/Sodium Chloride (25,000 unit/ Sodium Chloride) 250 mls @ 7.784 mls/hr IV .Q24H [facility]; Protocol Last Titration: 08/10/20 07:46 Dose: 10 units/kg/hr, 6.486 mls/hr Documented by: Lacosamide (Lacosamide 50 Mg Tablet) 50 mg PO BID@0600 [facility] Last Admin: 08/10/20 05:41 Dose: 50 mg Documented by: Lacosamide (Lacosamide 50 Mg Tablet) 100 mg PO DAILY@0600 [facility] Last Admin: 08/10/20 05:41 Dose: 100 mg Documented by: Lacosamide (Lacosamide 50 Mg Tablet) 200 mg PO HS@1900 [facility] Last Admin: 08/10/20 19:14 Dose: 200 mg Documented by: Levothyroxine Sodium (Levothyroxine 50 Mcg Tab) 50 mcg PO DAILY@0600 [facility] Last Admin: 08/10/20 05:42 Dose: 50 mcg Documented by: Lorazepam (Lorazepam 2 Mg/Ml Inj) 0.5 mg IV Q6HR PRN PRN Reason: Anxiety Lorazepam (Lorazepam 1 Mg Tab) 1 mg PO DAILY PRN PRN Reason: Seizures lasting 4min Memantine (Memantine 10 Mg Tab) 10 mg PO DAILY@1900 [facility] Last Admin: 08/10/20 19:15 Dose: 10 mg Documented by: Naloxone HCl (Naloxone 0.4 Mg/Ml 1 Ml Vial) 0.2 mg IV Q2M PRN PRN Reason: Opioid Reversal Nystatin (Nystatin 100,000 Unit/Gm Powd 15 Gm) 1 applic TOPICAL BID@0600,1900 [facility] Last Admin: 08/10/20 19:15 Dose: 1 applic Documented by: Ondansetron HCl (Ondansetron 4 Mg/2 Ml Vial) 4 mg IVP Q8HR PRN PRN Reason: Nausea And Vomiting Oxcarbazepine (Oxcarbazepine 300 Mg Tab) 600 mg PO HS@1800 [facility] Last Admin: 08/10/20 17:38 Dose: 600 mg Documented by: Oxcarbazepine (Oxcarbazepine 300 Mg Tab) 900 mg PO DAILY@0600 [facility] Last Admin: 08/10/20 05:43 Dose: 900 mg Documented by: Pantoprazole Sodium (Pantoprazole 40 Mg Tablet) 40 mg PO DAILY@0730 [facility] Last Admin: 08/10/20 05:41 Dose: 40 mg Documented by: Phenytoin Sodium (Phenytoin Sodium Extended 100 Mg Cap) 100 mg PO HS@1900 [facility] Last Admin: 08/10/20 19:15 Dose: 100 mg Documented by: Phenytoin Sodium (Phenytoin Sodium Extended 100 Mg Cap) 100 mg PO DAILY@0600 [facility] Last Admin: 08/10/20 05:44 Dose: 100 mg Documented by: Topiramate (Topiramate 25 Mg Tab) 50 mg PO HS@1900 [facility] Last Admin: 08/10/20 19:16 Dose: 50 mg Documented by: Topiramate (Topiramate 100 Mg Tab) 100 mg PO DAILY@1900 [facility] Last Admin: 08/10/20 19:15 Dose: 100 mg Documented by: Topiramate (Topiramate 100 Mg Tab) 200 mg PO DAILY@0600 [facility] Last Admin: 08/10/20 05:45 Dose: 200 mg Documented by: Past medical history to include: Stroke, seizure disorder, hypothyroid, cerebral palsy, stroke in 2010 with the right-sided weakness. 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 Social history: Lives at the [facility]. No history of smoking or alcohol. Stepmother helps out Family history: Reviewed, noncontributory to presentation Physical examination: VITAL SIGNS: 98, 70, 16, 106/71, 97% room air GENERAL: BMI 27.9, laying in bed, tired sleepy EYES: Pupils equal. Conjunctiva normal. HEENT: [A bit swollen face HEART: First and second heart sounds are normal; mild edema. LUNGS: Respiratory rate increased; decreased breath sound. ABDOMEN: Soft, nontender, liver spleen not palpable, no masses palpable. PSYCH: Able tonsil simple questionsl. EXTREMITY: Swelling of the left upper extremity NEUROLOGICAL: [Cranial nerves grossly intact; no facial asymmetry, under developed right arm INVESTIGATIONS, reviewed in the clinical context: August 02: Abdominal pelvic CT: Low-attenuation filling defect occluding the mildly expanding bony structures right common femoral vein, right external iliac vein, right common iliac vein consistent occlusive DVT. White count 6.0 hemoglobin 12.2 platelets 225 lymphocytes 0.8 potassium 4 creatinine 0.63 Coronavirus [PCR]-not detected Chest x-ray film personally reviewed by me-possible left basilar infiltrate Doppler ultrasound-superficial venous thrombosis of the left cephalic vein. Computed tomography scan of the chest with contrast-large collection of 7% patient has collateral vessels over the right chest. Some pericardial effusion. Inferior vena cava, narrowed at the intrahepatic portion. Assessment: -New onset of superior vena cava syndrome. This point exact cause unknown. -Superficial venous thrombosis of the left Cephulac remained -Epilepsy disorder -Hypothyroid -Some cognitive impairment from cerebral palsy -Chronic cerebral palsy -Chronic medical debility. 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 -IV heparin monitoring Plan: Follow with radiation oncology, oncology, cardiothoracic surgery. Continue IV heparin. We'll discuss with my colleagues
[2020-08-11 04:37] LABS: Basophils % (A) 1 %; Eosinophils # (A) 0.5 k/uL (0-0.7); Eosinophils % (A) 10 %; HCT 35.6 % (34.0-46.0); HGB 11.3 gm/dL (11.4-16.0); Hypochromasia Slight; Lymphocytes # (A) 1.3 k/uL (1.0-4.8); Lymphocytes % (A) 26 %; MCH 31.6 pg (25.0-35.0); MCHC 31.7 g/dL (31.0-37.0); MCV 99.8 fL (80.0-100.0); Mean Platelet Volume 7.4; Monocytes # (A) 0.3 k/uL (0-1.0); Monocytes % (A) 6 %; Neutrophils # (A) 2.8 k/uL (1.3-7.7); Neutrophils % (A) 56 %; Platelet Count 258 k/uL (150-450); RBC 3.57 m/uL (3.80-5.40); RDW 13.7 % (11.5-15.5)
[2020-08-11] MEDS: CHOLECALCIFEROL 25 MCG (1000 IU) TABLET PO SCH ×2 (05:30→19:31)
[2020-08-11] MEDS: CALCIUM CARBONATE 500 MG CHEWABLE PO SCH (05:30)
[2020-08-11] MEDS: LACOSAMIDE 50 MG TABLET PO SCH ×3 (05:30→19:31)
[2020-08-11] MEDS: LEVOTHYROXINE 50 MCG TAB PO SCH (05:31)
[2020-08-11] MEDS: PHENYTOIN SODIUM EXTENDED 100 MG CAP PO SCH ×2 (05:31→19:30)
[2020-08-11] MEDS: OXcarbazepine 300 MG TAB PO SCH ×2 (05:31→19:28)
[2020-08-11] MEDS: TOPIRAMATE 100 MG TAB PO SCH ×2 (05:31→19:30)
[2020-08-11] MEDS: HEPARIN SOD,PORK IN 0.45% NACL 25,000 UNIT in 0.45% NACL 1 250ML.BAG IV SCH (08:25)
[2020-08-11] MEDS: CLOTRIMAZOLE 1% CREAM 15 GM TUBE TOPICAL SCH ×2 (08:27→19:30)
[2020-08-11] MEDS: NYSTATIN 100,000 UNIT/GM POWD 15 GM TOPICAL SCH ×2 (08:27→19:30)
[2020-08-11] MEDS: PANTOPRAZOLE 40 MG TABLET PO SCH (08:27)
--- NOTE | 2020-08-11 13:42 | P.PN ---
Subjective Progress Note Date: 08/11/20 Principal diagnosis: Lower extremity DVT, rule out right iliac thrombus Patient was seen and examined lying in bed. She denied any chest pain, shortness of breath, or abdominal pain. She denies any pain to bilateral lower extremities. She is able to move bilateral lower extremities. She still remains with swelling to the right lower extremity. HTN the abdomen with venous phase done yesterday which states there is right hemipelvic occlusive venous thrombus. Objective - Vital Signs Vital signs: Vital Signs Temp 97.9 F 08/11/20 05:00 Pulse 64 08/11/20 09:26 Resp 18 08/10/20 20:17 BP 111/72 08/11/20 05:00 Pulse Ox 93 L 08/11/20 05:00 Intake & Output 08/10/20 08/11/20 08/11/20 18:59 06:59 18:59 Intake Total 657.731 480 159.88 Balance 657.731 480 159.88 Weight 64.864 kg Intake: Intake, IV Titration 57.731 120 159.88 Amount Heparin Sod,Pork in 0.45% 57.731 159.88 NaCl 25,000 unit In 0.45 % NaCl 1 250ml.bag @ 12 UNITS/KG/HR 7.784 mls/hr IV .Q24H [facility] Rx#: [id number] Sodium Chloride 0.9% 1, 120 000 ml @ 20 mls/hr IV . Q24H [facility] Rx#:[id number] Oral 600 360 Other: Voiding Method Diaper Diaper Diaper Incontinent Incontinent Incontinent # Voids 3 2 - Exam General appearance: The patient is alert, oriented, appears in no acute distress. HET: Head is normocephalic and atraumatic. Pupils are equal and reactive. Neck: Supple without lymphadenopathy. Trachea midline. Heart: S1 S2. Regular rate and rhythm. Lungs: No crackles or wheezes are heard. Abdomen: Soft, nontender, nondistended. Extremities: Normal skin color and turgor. Bilateral lower extremities warm to the touch with good capillary refill and palpable dorsalis pedis. Lower extremity with swelling, no redness noted. Patient denies any tenderness Or thigh. Neurological: Alert and oriented. - Labs CBC & Chem 7: 08/11/20 04:11 01/28/21 05:19 Labs: Abnormal Lab Results - Last 24 Hours (Table) 08/10/20 08/10/20 08/11/20 Range/Units 05:19 13:45 04:11 RBC 3.57 L (3.80-5.40) m/uL Hgb 11.3 L (11.4-16.0) gm/dL APTT 53.1 H (22.0-30.0) sec Sodium 131 L (137-145) mmol/L 08/11/20 Range/Units 04:11 RBC (3.80-5.40) m/uL Hgb (11.4-16.0) gm/dL APTT 55.7 H (22.0-30.0) sec Sodium (137-145) mmol/L Assessment and Plan Assessment: 1. Right lower extremity deep vein thrombosis in the femoral and popliteal veins. Right hemipelvic occlusive venous thrombus 2. Superficial venous throbosis left cephalic vein. 3. 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 Recent fall June 2020 5. History of cerebral palsy with mild retardation 6. Seizure disorder 7. 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 Hypothyroidism Plan: CT abdomen and pelvis with venous phase reviewed by Dr. Youssef. Thrombus likely chronic with significant varicosities noted in the anterior abdominal wall. Continue with anticoagulation per recommendations from hematology. There are no indications for any vascular surgical intervention at this time. Thank you for this consultation, we will sign off at this time. The impression and plan of care has been dictated as directed. Dr. Youssef I performed a history and examination of this patient, discussed the same with the dictator. I agree with the dictator's note ,documented as a scribe. Any additional findings or plans will be noted.
--- NOTE | 2020-08-11 16:39 | PN ---
PROGRESS NOTE DATE OF SERVICE: 08/11/2020 I am covering for Dr. Adhikari. This 55-year-old woman was admitted with features of extensive venous thrombosis including the right common iliac femoral veins and also right leg also was involved with extensive DVT and left cephalic vein also had superficial venous thrombosis. Patient also had epilepsy and cerebral palsy, also. The patient was started on IV heparin. Patient closely monitored. Workup for malignancy is rather negative. An abdomen and pelvis CAT scan was also done which showed extensive occlusive thrombosis at this time. The patient is unable to give coherent history, most of history per my discussion with staff and multiple consultants are following the patient closely. The patient also had history of chronic SVC obstruction with collateral flow. The patient also had a fall as well. The patient also history of ASPHALT MIXER shunt previously. PAST MEDICAL HISTORY: Reviewed. REVIEW OF SYSTEMS: Review of systems could not be taken. MEDICATIONS: Current medications are ntd. PHYSICAL EXAMINATION: The patient is conscious, but not much communicative. Pulse 77, blood pressure 110/75, respiration 16, temperature 98.7, pulse ox 98% on room air. HEENT: Conjunctivae normal. NECK: No jugular venous distention. CARDIOVASCULAR: S1, S2 muffled. RESPIRATORY: Breath sounds diminished at the bases. A few scattered rhonchi. ABDOMEN: Soft, obese. LEGS: No edema. No swelling. NERVOUS SYSTEM: Diffusely weak and facial puffiness also present, some erythema also present. LABS: WBC 5, hemoglobin 11.3, and APTT is 55.7. Sodium is 131. UA noted. COVID-19 is negative. ASSESSMENT: 1. Diffuse deep venous thrombosis including the right leg, acute on chronic, including the right superficial femoral and possibly including the vena cava. 2. SVC obstruction rather chronic with collateral circulation. 3. Anemia, normocytic of chronic disease. 4. Hyponatremia. 5. Change in mental status, chronic metabolic encephalopathy. 6. History of cerebrovascular accident, transient ischemic attack. 7. History of seizure disorder. 8. History of ASPHALT MIXER shunt. 9. History of hypothyroidism. 10.History of cerebral palsy. 11.History of mental retardation. 12.History of intrauterine stroke. 13.History of cerebrovascular accident. 14.Chronic right-sided weakness. 15.FULL CODE. RECOMMENDATIONS AND DISCUSSION: This 55-year-old woman who presented with multiple complex medical issues, we will monitor the patient closely continue the current medications, continue symptomatic treatment. I discussed the case with Dr. Youssef, Vascular Surgery, recommended transition the IV heparin to p.o. Suggest Eliquis 5 mg p.o. b.i.d. we will discuss with Hematology/Oncology as well. Otherwise, the patient also will require extensive workup for the thrombotic conditions probably as an outpatient. Otherwise overall prognosis guarded. We will continue to monitor and resume the home medications. Continue the rest of medications. Further recommendations to follow. MMODL / IJN: [id number] / MTDD
[2020-08-11] MEDS: DONEPEZIL 10 MG TAB PO SCH (18:02)
[2020-08-11] MEDS: SODIUM CHLORIDE 0.9% 1,000 ML IV SCH (18:04)
[2020-08-11] MEDS: clonazePAM 0.5 MG TAB PO SCH (19:29)
[2020-08-11] MEDS: TOPIRAMATE 25 MG TAB PO SCH (19:30)
[2020-08-11] MEDS: MEMANTINE 10 MG TAB PO SCH (19:30)
[2020-08-12] MEDS: HEPARIN SOD,PORK IN 0.45% NACL 25,000 UNIT in 0.45% NACL 1 250ML.BAG IV SCH (00:15)
[2020-08-12 05:19] LABS: Basophils % (A) 1 %; Eosinophils # (A) 0.5 k/uL (0-0.7); Eosinophils % (A) 9 %; HCT 36.8 % (34.0-46.0); HGB 11.3 gm/dL (11.4-16.0); Hypochromasia Moderate; Lymphocytes # (A) 1.4 k/uL (1.0-4.8); Lymphocytes % (A) 24 %; MCHC 30.8 g/dL (31.0-37.0); MCV 100.8 fL (80.0-100.0); Macrocytosis Slight; Mean Platelet Volume 7.2; Monocytes # (A) 0.3 k/uL (0-1.0); Monocytes % (A) 6 %; Neutrophils # (A) 3.3 k/uL (1.3-7.7); Neutrophils % (A) 58 %; Platelet Count 238 k/uL (150-450); RBC 3.65 m/uL (3.80-5.40); RDW 13.9 % (11.5-15.5); WBC 5.7 k/uL (3.8-10.6)
[2020-08-12] MEDS: PHENYTOIN SODIUM EXTENDED 100 MG CAP PO SCH ×2 (06:01→20:04)
[2020-08-12] MEDS: CALCIUM CARBONATE 500 MG CHEWABLE PO SCH (06:01)
[2020-08-12] MEDS: CHOLECALCIFEROL 25 MCG (1000 IU) TABLET PO SCH ×2 (06:01→20:05)
[2020-08-12] MEDS: LEVOTHYROXINE 50 MCG TAB PO SCH (06:01)
[2020-08-12] MEDS: LACOSAMIDE 50 MG TABLET PO SCH ×3 (06:02→20:05)
[2020-08-12] MEDS: TOPIRAMATE 100 MG TAB PO SCH ×2 (06:02→20:07)
[2020-08-12] MEDS: NYSTATIN 100,000 UNIT/GM POWD 15 GM TOPICAL SCH ×2 (06:06→20:08)
[2020-08-12] MEDS: CLOTRIMAZOLE 1% CREAM 15 GM TUBE TOPICAL SCH ×2 (06:06→20:09)
[2020-08-12] MEDS: OXcarbazepine 300 MG TAB PO SCH ×2 (06:08→17:04)
[2020-08-12] MEDS: PANTOPRAZOLE 40 MG TABLET PO SCH (08:14)
[2020-08-12 09:37] LABS: African American GFR (CKD) 118.1 (60.0-200.0); Anion Gap 8.9 mmol/L (4.00-12.00); Calcium 8.4 mg/dL (8.7-10.3); Carbon Dioxide 23.1 mmol/L (21.6-31.8); Non-African American GFR(CKD) 101.9 (60.0-200.0); Potassium 3.9 mmol/L (3.5-5.5)
[2020-08-12] MEDS: SODIUM CHLORIDE 0.9% 1,000 ML IV SCH (17:04)
[2020-08-12] MEDS: DONEPEZIL 10 MG TAB PO SCH (17:04)
--- NOTE | 2020-08-12 19:22 | PN ---
PROGRESS NOTE DATE OF SERVICE: 08/12/2020 I am covering for Dr. Adhikari. This 55-year-old woman who ( ) cerebral palsy and possibly had gone for a prolonged period, had extensive venous thrombosis and collaterals also. The patient is started on IV heparin and per recommendations of Hematology/Oncology and as well as Vascular Surgery. Eliquis has been initiated pending insurance clearance for long-term anticoagulation. The patient has been closely monitored. No chest pain. No palpitations. Past medical history and review of systems could not be taken, the patient's baseline. CURRENT MEDICATIONS: Reviewed include calcium carbonate, cholecalciferol, Klonopin, Clotrimazole, heparin IV, ( ). Doses reviewed. PHYSICAL EXAM: The pulse is 63, blood pressure 120/74, respiration 16, temperature 98.2, pulse ox 98% on room air. skin: HEENT: Conjunctivae normal. Oral mucosa moist. NECK: No jugular venous distention. No lymph node enlargement. CARDIOVASCULAR: S1, S2, muffled. No S3, no S4, RESPIRATORY: Diminished breath sounds at the bases. No rhonchi, no crackles. ABDOMEN: Soft, nontender. LEGS: No edema, no swelling. NERVOUS SYSTEM: No focal motor or sensory deficits. LABS: WBC 5.2, hemoglobin 11.3. APTT 47.5. ASSESSMENT: 1. Diffuse deep venous thrombosis including the right leg, acute on chronic, including the right femoral vein, iliac, common iliac, including the vena cava also. 2. Superior vena cava obstruction rather chronic with collateral circulation. 3. Anemia, normocytic of chronic disease. 4. Hyponatremia. 5. Change in mental status, chronic metabolic encephalopathy. 6. History of cerebrovascular accident/transient ischemic attack. 7. History of seizure disorder. 8. 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 9. History hypothyroidism. 10.History of cerebral palsy. 11.History of mental retardation. 12.History of intrauterine stroke. 13.Chronic right-sided weakness. 14.FULL CODE. RECOMMENDATIONS AND DISCUSSION: I recommend to continue current medications, continue to monitor, symptomatic treatment. Otherwise at this time I recommend continue with heparin until the ( ) issues are sorted out. Otherwise, Hematology/Oncology input appreciated. The patient might have chronic issues causing the ( ) syndrome. We will continue to monitor. Prognosis guarded because of multiple complex medical issues and further recommendations to follow. Monitor PT and APTT closely. MMODL / IJN: [id number] /
[2020-08-12] MEDS: CYANOCOBALAMIN 500 MCG TAB PO SCH (20:04)
[2020-08-12] MEDS: clonazePAM 0.5 MG TAB PO SCH (20:06)
[2020-08-12] MEDS: TOPIRAMATE 25 MG TAB PO SCH (20:07)
[2020-08-12] MEDS: MEMANTINE 10 MG TAB PO SCH (20:13)
[2020-08-13] MEDS: HEPARIN SOD,PORK IN 0.45% NACL 25,000 UNIT in 0.45% NACL 1 250ML.BAG IV SCH ×2 (01:13→06:00)
[2020-08-13 05:09] LABS: Basophils % (A) 1 %; Eosinophils # (A) 0.5 k/uL (0-0.7); Eosinophils % (A) 10 %; HCT 35.1 % (34.0-46.0); HGB 11.4 gm/dL (11.4-16.0); Hypochromasia Slight; Lymphocytes # (A) 1.3 k/uL (1.0-4.8); Lymphocytes % (A) 25 %; MCH 32.1 pg (25.0-35.0); MCHC 32.5 g/dL (31.0-37.0); MCV 98.7 fL (80.0-100.0); Mean Platelet Volume 7.2; Monocytes # (A) 0.3 k/uL (0-1.0); Monocytes % (A) 7 %; Neutrophils # (A) 2.8 k/uL (1.3-7.7); Neutrophils % (A) 56 %; Platelet Count 240 k/uL (150-450); RBC 3.55 m/uL (3.80-5.40); WBC 5.1 k/uL (3.8-10.6)
[2020-08-13] MEDS: LACOSAMIDE 50 MG TABLET PO SCH ×3 (06:11→21:09)
[2020-08-13] MEDS: OXcarbazepine 300 MG TAB PO SCH ×2 (06:11→18:02)
[2020-08-13] MEDS: CHOLECALCIFEROL 25 MCG (1000 IU) TABLET PO SCH ×2 (06:11→21:09)
[2020-08-13] MEDS: CALCIUM CARBONATE 500 MG CHEWABLE PO SCH (06:13)
[2020-08-13] MEDS: CLOTRIMAZOLE 1% CREAM 15 GM TUBE TOPICAL SCH ×2 (06:14→21:16)
[2020-08-13] MEDS: LEVOTHYROXINE 50 MCG TAB PO SCH (06:15)
[2020-08-13] MEDS: PHENYTOIN SODIUM EXTENDED 100 MG CAP PO SCH ×2 (06:15→21:09)
[2020-08-13] MEDS: TOPIRAMATE 100 MG TAB PO SCH ×2 (06:16→21:08)
[2020-08-13] MEDS: NYSTATIN 100,000 UNIT/GM POWD 15 GM TOPICAL SCH ×2 (06:17→21:16)
[2020-08-13] MEDS: PANTOPRAZOLE 40 MG TABLET PO SCH (08:28)
[2020-08-13 09:55] LABS: African American GFR (CKD) 118.1 (60.0-200.0); Anion Gap 6.6 mmol/L (4.00-12.00); BUN/Creat Ratio 16.67 Ratio (12.00-20.00); Calcium 8.5 mg/dL (8.7-10.3); Carbon Dioxide 24.4 mmol/L (21.6-31.8); Non-African American GFR(CKD) 101.9 (60.0-200.0); Potassium 3.9 mmol/L (3.5-5.5)
[2020-08-13] MEDS: DONEPEZIL 10 MG TAB PO SCH (16:11)
--- NOTE | 2020-08-13 18:00 | PN ---
PROGRESS NOTE DATE OF SERVICE: 08/13/2020 I am covering for Dr. Adhikari. This 55-year-old woman was admitted with diffuse DVT of the right leg, also had significant venous embolic phenomena. Patient is on IV heparin at this time. Eliquis is being planned as an outpatient. No chest pain. No palpitation. EXAM: Pulse 73, blood pressure 116/72, respirations 17, temperature 98 degrees, pulse ox 98% on room air. HEENT: Conjunctivae normal. NECK: No JVD. CARDIOVASCULAR: S1, S2. RESPIRATORY: Breath sounds diminished in the bases. No rhonchi. No crackles. ABDOMEN: Soft, nontender. Facial puffiness present. LABS: WBC 5.2, hemoglobin 11.5. APTT noted. Calcium is 8.5. ASSESSMENT: 1. Diffuse venous thrombosis including the right leg, acute on chronic, including the right femoral iliac, common iliac, including the vena cava, also. 2. Superior vena caval obstruction either chronic with collaterals circulation. 3. Anemia, normocytic of chronic disease. 4. Hyponatremia. 5. Change in mental status, acute on chronic metabolic encephalopathy. 6. History of cerebrovascular accident/transient ischemic attack. 7. History of seizure disorder. 8. 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 9. History of hypothyroidism. 10.History of cerebral palsy. 11.History of mental retardation. 12.History of intrauterine stroke. 13.Chronic right-sided weakness. 14.FULL CODE. RECOMMENDATIONS: Recommend to continue current medications, continue to monitor. Symptomatic treatment. Otherwise at this time continue with IV heparin, Eliquis may be initiated once cleared by the insurance company as determined by the spring encaser. Further recommendations to follow. Possibly discharge soon. MMODL / IJN: [id number] /
[2020-08-13] MEDS: SODIUM CHLORIDE 0.9% 1,000 ML IV SCH (18:02)
[2020-08-13] MEDS: MEMANTINE 10 MG TAB PO SCH (21:09)
[2020-08-13] MEDS: clonazePAM 0.5 MG TAB PO SCH (21:10)
[2020-08-13] MEDS: TOPIRAMATE 25 MG TAB PO SCH (21:11)
[2020-08-13 21:32] VITALS: RESP 18
[2020-08-14 04:58] VITALS: TEMP 97.4
[2020-08-14 05:14] LABS: Basophils % (A) 1 %; Eosinophils # (A) 0.5 k/uL (0-0.7); Eosinophils % (A) 10 %; HCT 34.8 % (34.0-46.0); HGB 10.6 gm/dL (11.4-16.0); Hypochromasia Slight; Lymphocytes # (A) 1.3 k/uL (1.0-4.8); Lymphocytes % (A) 27 %; MCH 30.5 pg (25.0-35.0); MCHC 30.5 g/dL (31.0-37.0); Macrocytosis Slight; Mean Platelet Volume 7.8; Monocytes # (A) 0.4 k/uL (0-1.0); Monocytes % (A) 8 %; Neutrophils # (A) 2.6 k/uL (1.3-7.7); Neutrophils % (A) 53 %; Platelet Count 257 k/uL (150-450); RBC 3.48 m/uL (3.80-5.40); RDW 14.1 % (11.5-15.5)
[2020-08-14] MEDS: LACOSAMIDE 50 MG TABLET PO SCH ×2 (05:46→05:47)
[2020-08-14] MEDS: NYSTATIN 100,000 UNIT/GM POWD 15 GM TOPICAL SCH (05:46)
[2020-08-14] MEDS: CHOLECALCIFEROL 25 MCG (1000 IU) TABLET PO SCH (05:47)
[2020-08-14] MEDS: LEVOTHYROXINE 50 MCG TAB PO SCH (05:47)
[2020-08-14] MEDS: CALCIUM CARBONATE 500 MG CHEWABLE PO SCH (05:47)
[2020-08-14] MEDS: TOPIRAMATE 100 MG TAB PO SCH (05:48)
[2020-08-14] MEDS: OXcarbazepine 300 MG TAB PO SCH (05:49)
[2020-08-14] MEDS: PHENYTOIN SODIUM EXTENDED 100 MG CAP PO SCH (05:49)
[2020-08-14] MEDS: CLOTRIMAZOLE 1% CREAM 15 GM TUBE TOPICAL SCH (05:52)
[2020-08-14] MEDS: PANTOPRAZOLE 40 MG TABLET PO SCH (08:48)
[2020-08-14 08:50] LABS: African American GFR (CKD) 148.3 (60.0-200.0); Anion Gap 7.7 mmol/L (4.00-12.00); Calcium 7.3 mg/dL (8.7-10.3); Carbon Dioxide 21.3 mmol/L (21.6-31.8)
[2020-08-14] MEDS ORDERED: APIXABAN 5 MG TAB PO SCH (11:30)
[2020-08-14 12:28] VITALS: BP 92/60; PULSE 65
--- NOTE | 2020-08-14 12:56 | P.DS ---
Providers Date of admission: 08/08/20 16:57 Expected date of discharge: 08/14/20 Attending physician: Moe Adhikari Consults: 08/08/20 16:58 Consult Physician Routine Consulting Provider: Quentin Vaz Consult Reason/Comments: svc obstruction Do you want consulting provider notified?: Already Contacted 08/08/20 17:08 Consult Physician Routine Consulting Provider: Andrea Reis Consult Reason/Comments: svc obstruction Do you want consulting provider notified?: Yes 08/08/20 17:09 Consult Physician Routine Consulting Provider: Bud Rodriguez Consult Reason/Comments: svc obstruction Do you want consulting provider notified?: Yes 08/09/20 23:28 Consult Physician Routine Consulting Provider: Torey Griggs Consult Reason/Comments: iliac vein DVT Do you want consulting provider notified?: Yes Primary care physician: Dm Nuñez MD Hospital Course: Final diagnosis Diffuse venous thrombosis including the right leg, acute on chronic, including the right femoral iliac, common iliac, including the vena cava also 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 Patient will follow-up with Dr. Nuñez in the outpatient setting upon discharge. Patient is to continue with Eliquis 5mg twice daily as scheduled. Total time taken is greater than 35 minutes. Hospital course This is a 55-year-old female who was recently admitted with diffuse DVT of the right leg also significant venous embolic phenomena and was being closely monitored. She was seen and evaluated by hematology recommending anticoagulation. Patient was placed on IV heparin upon admission and also seen by vascular surgery. Patient also went for CT abdomen showing thrombosis likely chronic with significant varicose ascites noted in the anterior abdominal wall. Anticoagulation coverage was verified with case management and is 100% covered. Patient will continue with Eliquis 5 mg twice daily upon discharge. Currently no reports of chest pain, shortness of breath, or palpitations. Patient is afebrile. No reports of nausea or vomiting and patient is tolerating diet. P atient will be going to [facility] home today. On exam vital signs are stable. Temp is 97.4F, pulse is 65, respirations are 18, blood pressure is 92/60, oxygen saturation is 98% on room air. Cardio S1, S2 are muffled. Respiratory system shows diminished breath sounds at the bases with no wheezing or rhonchi noted. Abdomen is soft and obese, and nontender. Nervous system shows diffuse weakness. Please refer to medication reconciliation sheet for a list of medications. Patient Condition at Discharge: Fair Plan - Discharge Summary New Discharge Prescriptions: New Apixaban [Eliquis] 5 mg PO BID 30 Days #60 tab Continue Nystatin 100,000 Unit/gm Powd [Mycostatin Powder] 1 applic TOPICAL BID@0600,1900 LORazepam [Ativan] 1 mg PO DAILY PRN PRN Reason: Seizures lasting 4min Cyanocobalamin [Vitamin B-12] 1,000 mcg PO Q48H Phenytoin Sodium Extended [Dilantin] 100 mg PO DAILY@0600 Levothyroxine Sodium [Synthroid] 50 mcg PO DAILY@0600 Topiramate 200 mg PO DAILY@0600 OXcarbazepine [Trileptal] 600 mg PO HS@1800 Cholecalciferol [Vitamin D3 (25 Mcg = 1000 Iu)] 2,000 unit PO BID@0600,2000 Lacosamide [Vimpat] 100 mg PO DAILY@0600 Topiramate [Topamax] 50 mg PO HS@1900 Lacosamide [Vimpat] 50 mg PO BID@0600 Lacosamide [Vimpat] 200 mg PO HS@1900 Topiramate [Topamax] 100 mg PO DAILY@1900 Tinactin 1% [place] Powder 1 applic TOPICAL BID@0600,1900 OXcarbazepine [Trileptal] 900 mg PO DAILY@0600 Omeprazole 20 mg PO DAILY@1900 Memantine [Namenda] 10 mg PO DAILY@1900 Donepezil HCl [Aricept] 10 mg PO DAILY@1600 Phenytoin Sodium Extended [Dilantin] 60 mg PO HS@1900 clonazePAM [Klonopin ODT Wafer] 0.25 mg PO HS@1900 Andi-Gest 500mg Chewable 500 mg PO DAILY@0600 Lactose-Reduced Food [Ensure Plus] 1 can PO DAILY PRN PRN Reason: anorexia Discharge Medication List Cholecalciferol [Vitamin D3 (25 Mcg = 1000 Iu)] 2,000 unit PO BID@0600,199901/22/14 [History] Cyanocobalamin [Vitamin B-12] 1,000 mcg PO Q48H 01/22/14 [History] LORazepam [Ativan] 1 mg PO DAILY PRN 01/22/14 [History] Levothyroxine Sodium [Synthroid] 50 mcg PO DAILY@59901/22/14 [History] Nystatin 100,000 Unit/gm Powd [Mycostatin Powder] 1 applic TOPICAL BID@0600,189901/22/14 [History] OXcarbazepine [Trileptal] 600 mg PO HS@1800 01/22/14 [History] Phenytoin Sodium Extended [Dilantin] 100 mg PO DAILY@59901/22/14 [History] Topiramate 200 mg PO DAILY@59901/22/14 [History] Lacosamide [Vimpat] 100 mg PO DAILY@59905/03/17 [History] Topiramate [Topamax] 50 mg PO HS@189905/03/17 [History] Lacosamide [Vimpat] 50 mg PO BID@59912/25/17 [History] Andi-Gest 500mg Chewable 500 mg PO DAILY@59907/02/20 [History] Donepezil HCl [Aricept] 10 mg PO DAILY@1600 07/02/20 [History] Lacosamide [Vimpat] 200 mg PO HS@189907/02/20 [History] Lactose-Reduced Food [Ensure Plus] 1 can PO DAILY PRN 07/02/20 [History] Memantine [Namenda] 10 mg PO DAILY@189907/02/20 [History] OXcarbazepine [Trileptal] 900 mg PO DAILY@59907/02/20 [History] Omeprazole 20 mg PO DAILY@189907/02/20 [History] Phenytoin Sodium Extended [Dilantin] 60 mg PO HS@189907/02/20 [History] Tinactin 1% [place] Powder 1 applic TOPICAL BID@0600,189907/02/20 [History] Topiramate [Topamax] 100 mg PO DAILY@189907/02/20 [History] clonazePAM [Klonopin ODT Wafer] 0.25 mg PO HS@189907/02/20 [History] Apixaban [Eliquis] 5 mg PO BID 30 Days #60 tab 08/11/20 [Rx] Follow up Appointment(s)/Referral(s): Dm Nuñez MD [Primary Care Provider] - 1-2 days Activity/Diet/Wound Care/Special Instructions: pt longterm will transport the pt home at time of d/c. 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 Activity as tolerated Follow-up with primary care provider upon discharge Continue current diet Discharge Disposition: TRANSFER TO SNF/ECF
--- NOTE | 2020-08-14 14:49 | P.PN ---
Subjective Progress Note Date: 08/14/20 Principal diagnosis: SVC Planning for discharge today, heparin drip to convert to eliquis and first dose in hospital . Objective - Vital Signs Vital signs: Vital Signs Temp 97.4 F L 08/14/20 04:57 Pulse 65 08/14/20 12:27 Resp 18 08/14/20 04:57 BP 92/60 08/14/20 12:27 Pulse Ox 98 08/14/20 12:27 Intake & Output 08/13/20 08/14/20 08/14/20 18:59 06:59 18:59 Intake Total 82.163 97.3 Balance 82.163 97.3 Weight 64.864 kg Intake: Intake, IV Titration 82.163 97.3 Amount Heparin Sod,Pork in 0.45% 82.163 97.3 NaCl 25,000 unit In 0.45 % NaCl 1 250ml.bag @ 12 UNITS/KG/HR 7.784 mls/hr IV .Q24H [facility] Rx#: [id number] Other: Voiding Method Diaper Diaper Diaper Incontinent Incontinent Incontinent # Voids 3 0 1 # Bowel Movements 1 0 1 - Exam - General well nourished, no distress, no pain - Eyes normal ocular movement - Neck: Supple - Respiratory: Lungs sounds clear bilaterally. Respirations even, non-labored. - Cardiovascular: S1, S2 present. Regular rate and rhythm. Palpable peripheral pulses bilaterally. No edema present. No calf pain or tenderness noted. - Abdomen: soft, non tender, bowel sounds - Integumentary:no rash, no growths - Musculoskeletal: Right-sided weakness present - Psychiatric: is able to tell her current situation, slow. - Labs CBC & Chem 7: 08/14/20 04:51 08/14/20 04:51 Labs: Abnormal Lab Results - Last 24 Hours (Table) 08/13/20 08/14/20 08/14/20 Range/Units 15:36 04:51 04:51 RBC 3.48 L (3.80-5.40) m/uL Hgb 10.6 L (11.4-16.0) gm/dL MCHC 30.5 L (31.0-37.0) g/dL APTT 62.8 H (22.0-30.0) sec Carbon Dioxide 21.3 L (21.6-31.8) mmol/L Creatinine 0.3 L (0.6-1.5) mg/dL BUN/Creatinine Ratio 30.00 H (12.00-20.00) Ratio Calcium 7.3 L (8.7-10.3) mg/dL 08/14/20 Range/Units 04:51 RBC (3.80-5.40) m/uL Hgb (11.4-16.0) gm/dL MCHC (31.0-37.0) g/dL APTT 65.3 H (22.0-30.0) sec Carbon Dioxide (21.6-31.8) mmol/L Creatinine (0.6-1.5) mg/dL BUN/Creatinine Ratio (12.00-20.00) Ratio Calcium (8.7-10.3) mg/dL Assessment and Plan (1) SVC obstruction Current Visit: Yes Status: Acute Code(s): I87.1 - COMPRESSION OF VEIN SNOMED Code(s): 075284651 (2) Cerebral palsy Current Visit: No Status: Acute Code(s): G80.9 - CEREBRAL PALSY, UNSPECIFIED SNOMED Code(s): 794273568 (3) Hypothyroidism Current Visit: No Status: Acute Code(s): E03.9 - HYPOTHYROIDISM, UNSPECIFIED SNOMED Code(s): 58200156 (4) Intractable epilepsy Current Visit: No Status: Acute Code(s): G40.919 - EPILEPSY, UNSP, INTRACTABLE, WITHOUT STATUS EPILEPTICUS SNOMED Code(s): 705676153 (5) Obstructive sleep apnea Current Visit: No Status: Acute Code(s): G47.33 - OBSTRUCTIVE SLEEP APNEA (ADULT) (PEDIATRIC) SNOMED Code(s): 80676498 (6) Recurrent seizures Current Visit: No Status: Acute Code(s): G40.909 - EPILEPSY, UNSP, NOT INTRACTABLE, WITHOUT STATUS EPILEPTICUS SNOMED Code(s): 10901133 Plan: Assessment and Recommendations: Upper Extremity and Facial Swelling: - Concern of underlying mediastinal pathology representing as picture of SVC syndrome. - CT Chest: Reveals evidence of collateral vasculature although no definitive mass reported. Therefore CTS has been consulted to further evaluate. Await further evaluation. DISPO PLan: Eliquis at discharge and follow-up with Dr. Rodriguez regarding length of therapy
== END 2020-08-14 14:56 | disposition home or self-care (01) | DRG 299 ==
LOC: EC 12:27 → 5NMEDONC 16:57
PROVIDERS: ADMIT Hospitalist; ATTEND Hospitalist
PROC: 05HD33Z Insertion of Infusion Device into Right Cephalic Vein, Percutaneous Approach (ICD-10-PCS; principal; 2020-08-08 11:40)
DX: I82.612 Acute embolism and thrombosis of superficial veins of left upper extremity (principal); G93.41 Metabolic encephalopathy; I87.1 Compression of vein; G40.919 Epilepsy, unspecified, intractable, without status epilepticus; I31.3 Pericardial effusion (noninflammatory); I69.351 Hemiplegia and hemiparesis following cerebral infarction affecting right dominant side; E87.1 Hypo-osmolality and hyponatremia; I82.411 Acute embolism and thrombosis of right femoral vein; I82.431 Acute embolism and thrombosis of right popliteal vein; I82.429 Acute embolism and thrombosis of unspecified iliac vein; I82.501 Chronic embolism and thrombosis of unspecified deep veins of right lower extremity; D63.8 Anemia in other chronic diseases classified elsewhere; G80.9 Cerebral palsy, unspecified; I86.8 Varicose veins of other specified sites; G47.33 Obstructive sleep apnea (adult) (pediatric); Z20.822 Contact with and (suspected) exposure to COVID-19; F41.9 Anxiety disorder, unspecified; F70 Mild intellectual disabilities; E03.9 Hypothyroidism, unspecified; I10 Essential (primary) hypertension; F81.9 Developmental disorder of scholastic skills, unspecified; R32 Unspecified urinary incontinence; E66.9 Obesity, unspecified; Z68.27 Body mass index [BMI] 27.0-27.9, adult; Z79.890 Hormone replacement therapy; Z79.899 Other long term (current) drug therapy; Z91.81 History of falling; Z98.2 Presence of cerebrospinal fluid drainage device; Z71.3 Dietary counseling and surveillance; W19.XXXA Unspecified fall, initial encounter
CPT/HCPCS: 36410; 36415; 71046; 71260; 74177; 76937; 80048; 80053; 80185; 81001; 84443; 85025; 85610; 85730; 87635; 93005; 93970; 99285

== ENCOUNTER → 2020-09-20 | Outpatient (CLI) | payer MEDICARE, OTHER ==
[2020-09-20 16:01] LABS: Basophils # (A) 0.03 X 10*3/uL (0.00-0.10); Basophils % (A) 0.5 %; Eosinophils # (A) 0.33 X 10*3/uL (0.04-0.35); Eosinophils % (A) 5.5 %; HCT 35.3 % (37.2-46.3); HGB 10.7 g/dL (12.0-15.0); Lymphocytes # (A) 0.59 X 10*3/uL (0.90-5.00); Lymphocytes % (A) 9.8 %; MCH 31.1 pg (27.0-32.0); MCHC 30.3 g/dL (32.0-37.0); MCV 102.6 fL (80.0-97.0); Mean Platelet Volume 10.3 fL (9.5-12.2); Monocytes # (A) 0.67 X 10*3/uL (0.20-1.00); Monocytes % (A) 11.1 %; Neutrophils # (A) 4.38 X 10*3/uL (1.80-7.70); Neutrophils % (A) 72.4 %; Platelet Count 251 X 10*3/uL (140-440); RBC 3.44 X 10*6/uL (4.10-5.20); RDW 14.3 % (11.5-14.5); WBC 6.04 X 10*3/uL (4.50-10.00)
[2020-09-20 20:17] LABS: African American GFR (CKD) 112.3 (60.0-200.0); Albumin 3.9 g/dL (3.80-4.90); Albumin/Globulin Ratio 1.5 (1.60-3.17); Anion Gap 10.3 mmol/L (4.00-12.00); BUN/Creat Ratio 25.71 Ratio (12.00-20.00); Carbon Dioxide 20.7 mmol/L (21.6-31.8); Globulin 2.6 g/dL (1.6-3.3); Non-African American GFR(CKD) 96.9 (60.0-200.0); Potassium 3.9 mmol/L (3.5-5.5); Total Bilirubin 0.3 mg/dL (0.3-1.2); Total Protein 6.5 g/dL (6.2-8.2)
[2020-09-20 23:10] LABS: Phenytoin (Dilantin) 9.4 ug/mL (10.0-20.0)
[2020-09-21 09:04] LABS: Topiramate 6.8 ug/mL (2.0-20.0)
== END | disposition home or self-care (01) ==
LOC: LABWHC1 09:02
PROVIDERS: ATTEND General Practice
DX: E03.9 Hypothyroidism, unspecified (principal); I10 Essential (primary) hypertension; G40.209 Localization-related (focal) (partial) symptomatic epilepsy and epileptic syndromes with complex partial seizures, not intractable, without status epilepticus
CPT/HCPCS: 36415; 80053; 80183; 80185; 80201; 80235; 82465; 82607; 84134; 84443; 85025

== ENCOUNTER → 2020-11-22 | Outpatient (CLI) | payer MEDICARE, OTHER ==
--- NOTE | 2020-11-22 11:49 | MM ---
Reason for exam: clinical finding. Physical Findings: Nurse did not find any significant physical abnormalities on exam. MG Diagnostic Mammo w CAD BLANCA Bilateral CC and MLO view(s) were taken. The breast tissue is heterogeneously dense. This may lower the sensitivity of mammography. Vascular calcifications. Bilateral skin thickening. No suspicious mass seen. These results were verbally communicated with the patient and result sheet given to the patient on 11/22/20. ASSESSMENT: Benign, BI-RAD 2 RECOMMENDATION: Routine screening mammogram of both breasts in 1 year. Manage patient on a clinical basis.
== END | disposition home or self-care (01) ==
LOC: RADMAMWWP 10:29
PROVIDERS: ATTEND General Practice
DX: R92.2 Inconclusive mammogram (principal); R92.1 Mammographic calcification found on diagnostic imaging of breast
CPT/HCPCS: 77066

== ENCOUNTER → 2021-02-23 | Outpatient (CLI) | payer MEDICARE, OTHER ==
[2021-02-23 14:51] LABS: Basophils # (A) 0.03 X 10*3/uL (0.00-0.10); Basophils % (A) 0.9 %; Eosinophils # (A) 0.17 X 10*3/uL (0.04-0.35); Eosinophils % (A) 5.3 %; HCT 36.3 % (37.2-46.3); HGB 11.1 g/dL (12.0-15.0); Lymphocytes # (A) 0.58 X 10*3/uL (0.90-5.00); Lymphocytes % (A) 18.2 %; MCH 29.8 pg (27.0-32.0); MCHC 30.6 g/dL (32.0-37.0); MCV 97.6 fL (80.0-97.0); Mean Platelet Volume 10.3 fL (9.5-12.2); Monocytes # (A) 0.38 X 10*3/uL (0.20-1.00); Monocytes % (A) 11.9 %; Neutrophils # (A) 2.03 X 10*3/uL (1.80-7.70); Neutrophils % (A) 63.7 %; Platelet Count 202 X 10*3/uL (140-440); RBC 3.72 X 10*6/uL (4.10-5.20); RDW 15.3 % (11.5-14.5); WBC 3.19 X 10*3/uL (4.50-10.00)
[2021-02-24 01:15] LABS: Phenytoin (Dilantin) 9.2 ug/mL (10.0-20.0)
[2021-02-26 08:54] LABS: Topiramate 7.4 ug/mL (2.0-20.0)
== END | disposition home or self-care (01) ==
LOC: LABWHC1 09:20
PROVIDERS: ATTEND Psychiatry & Neurology Neurology
DX: G40.209 Localization-related (focal) (partial) symptomatic epilepsy and epileptic syndromes with complex partial seizures, not intractable, without status epilepticus (principal)
CPT/HCPCS: 36415; 80183; 80185; 80201; 80235; 84450; 84460; 85025

== ENCOUNTER → 2021-10-03 | Outpatient (CLI) | payer MEDICARE, OTHER ==
--- NOTE | 2021-10-03 15:29 | SFUN ---
SLEEP CENTER FOLLOW UP NOTE DATE OF SERVICE: 10/03/2021 56-year-old lady has been followed in Sleep Center for treatment of obstructive sleep apnea-hypopnea syndrome. I did not see patient since October of 2018. The patient continued to use her BiPAP equipment every night, but she wakes up from sleep and sometimes mask goes out from her face. She is using full face mask which covers mouth and nose. [place] Sleepiness Scale today is increased to 16. I checked her BiPAP unit. BiPAP pressure is 21/15. Usage is 30/30 nights for more than 4 hours. Average 11.2 hours per night. Leak is very high 61 L/minute. Apnea- hypopnea index significantly increased to 24.2. This includes a small amount of central apneas 0.9 only. MEDICATIONS: Atorvastatin 10 mg once a day, clonazepam 0.25 mg once a day, Dilantin 30 mg 2 capsules at bedtime, Donepezil 10 mg one tablet in the evening, Eliquis 5 mg twice a day, levothyroxine 50 mcg once a day, memantine 1 tablet once a day, omeprazole 20 mg once a day, Oxcarbazepine 300 mg 2 tablets in the evening and 3 tablets in the morning, 100 mg once a day, topiramate 200 mg twice a day, Vimpat 100 mg in the morning, 200 mg at bedtime, lorazepam as needed. PHYSICAL EXAMINATION: GENERAL: Patient is in a wheelchair. BP 102/68, HR 64, RR 16, temperature 96.6, oxygen saturation at room air 99%. HEENT: PERRL, EOMI. Extremely low position of soft palate. HEART: S1, S2 regular. LUNGS: Clear. ABDOMEN: Obese. DATA SUPPORT ANALYST: Right-sided weakness. The patient is in wheelchair. IMPRESSION: 1. Obstructive sleep apnea-hypopnea syndrome. Patient demonstrated good compliance with treatment, very high leak from the mask. Apnea-hypopnea index increased, most probably secondary to mask leak. 2. Obesity. 3. History of cerebral palsy. 4. History of dementia. 5. Hypothyroidism. 6. History of seizures. 7. Acid reflux. PLAN: 1. Prescription for additional chinstrap. 2. We will change type of fullface mask to Dream Wear medium size. This mask goes under the nose and should be more comfortable for the patient. 3. Patient will continue to use PAP equipment every night for the whole night. 4. Sleep hygiene with regular time in bed for at least 7-1/2 to 8 hours. 5. Precautions related to driving. No driving if feeling sleepiness. 6. I will maintain all necessary prescription for PAP supplies including mask, tube, filters. 7. Watching weight. 8. Follow-up visit in 3 months or earlier if patient has any problems. Thank you very much for allowing me to participate in the management of your patient. Sincerely, Chad Levin MD, PhD, FAASM Diplomat of [place] [employer] Sleep Medicine Board of [place] [employer] Room Service [employer] [place] MMODL / IJN: [id number] /
== END ==
LOC: SLEEP 11:08
PROVIDERS: ATTEND Internal Medicine
DX: G47.33 Obstructive sleep apnea (adult) (pediatric) (principal); E66.9 Obesity, unspecified; E03.9 Hypothyroidism, unspecified; K21.9 Gastro-esophageal reflux disease without esophagitis; G40.909 Epilepsy, unspecified, not intractable, without status epilepticus; Z86.69 Personal history of other diseases of the nervous system and sense organs; Z99.89 Dependence on other enabling machines and devices; Z79.890 Hormone replacement therapy

== ENCOUNTER → 2021-10-30 | Outpatient (CLI) | payer MEDICARE, OTHER ==
[2021-10-30 22:51] LABS: Phenytoin (Dilantin) 12.5 ug/mL (10.0-20.0)
[2021-11-01 10:32] LABS: Topiramate 7.1 ug/mL (2.0-20.0)
== END | disposition home or self-care (01) ==
LOC: LABWHC1 09:14
PROVIDERS: ATTEND Psychiatry & Neurology Neurology
DX: G40.209 Localization-related (focal) (partial) symptomatic epilepsy and epileptic syndromes with complex partial seizures, not intractable, without status epilepticus (principal)
CPT/HCPCS: 36415; 80183; 80185; 80201; 80235; 84295; 84450; 84460

== ENCOUNTER → 2022-02-14 | Outpatient (CLI) | payer MEDICARE, OTHER ==
--- NOTE | 2022-02-14 11:37 | P.PN ---
Subjective DATE: 02/14/2022 FOLLOW UP VISIT. Patient with obstructive sleep apnea hypopnea syndrome return to sleep center for follow-up visit. Information from previous visit have been reviewed. Patient is using PAP equipment every night for the whole night, getting PAP supplies in time. The patient has significant problems with the mask. Medium size of the mask does not cover chin area well. [place] sleepiness scale increased to 14. I checked information from PAP unit. BiPAP unit pressure 21/15 cm H2O. Usage is 100 % for more then 4 hours, average 10.5 hours per night. Leak is extremely high 74 l/m. Apnea Hypopnea Index is increased to 20.7. MEDICATIONS:1. Atorvastatin 10 mg once a day 2. Clonazepam 0.25 mg at bedtime 3. Dilantin 30 mg 2 capsule at bedtime 4. Levothyroxine 50 g once a day 5. Donepezil 10 mg once a day 6. Omeprazole 20 mg once a day 7. Phenytoin 100 mg once a day 8. Topiramate 200 mg twice a day During physical exam: GENERAL: A pleasant patient without any distress. Patient is on wheelchair VITAL SIGNS: BP 123/63, HR 59, RR 16, temperature 96.3, oxygen saturation at room air 97 % . HEENT: PERRLA, EOMI.low position of soft palate, Mallapati 4 . NECK: Supple. No JVD. LUNGS: Clear to percussion and to auscultation. Good air exchange. No wheezing or rhonchi. HEART: S1, S2 regular. ABDOMEN: Soft and nontender. Obese EXTREMITIES: No clubbing or cyanosis. SWINE NUTRITIONIST: Awake, alert, and oriented x3. Impressions: 1. Obstructive sleep apnea-hypopnea syndrome. Patient demonstrated great compliance with treatment. Extremely high leak from the mask. Apnea-hypopnea index increased. 2. Obesity. 3. History of cerebral palsy. 4. History of dementia. 5. Hypothyroidism. 6. History of surgeries. 7. Acid reflux. Plan: 1. Continue using BiPAP equipment every night for the whole night. Prescription was written to change size of full facemask to large. Prescription was faxed to [facility]. 2. To change air filter today and at least 1-2 times per month. 3. PAP unit should stay lower then position of the head. 4. Advised patient to remove all remaining water from humidifier canister daily and make it dry after each usage. Refill canister with fresh distilled water before each usage. 5. Sleep hygiene with regular time in bed for at least 8 hours. 6. Losing weight. 7. I will maintain prescription for PAP supplies including mask, tube, filters. 8. Follow up visit in 3 months or earlier if patient has any problems. Thank you very much for allowing me to participate in the management of your patient. Chad Levin MD, PhD, FAASM. Diplomat of [place] [employer], Sleep Medicine Board by [place] [employer] Title Investigator of [facility] [place]
== END ==
LOC: SLEEP 10:45
PROVIDERS: ATTEND Internal Medicine
DX: G47.33 Obstructive sleep apnea (adult) (pediatric) (principal); E66.9 Obesity, unspecified; E03.9 Hypothyroidism, unspecified; Z98.890 Other specified postprocedural states; K21.9 Gastro-esophageal reflux disease without esophagitis; Z86.69 Personal history of other diseases of the nervous system and sense organs; Z79.890 Hormone replacement therapy; Z79.899 Other long term (current) drug therapy

== ENCOUNTER → 2022-06-04 | Outpatient (CLI) | payer MEDICARE, OTHER ==
[2022-06-04 17:51] LABS: Phenytoin (Dilantin) 11.2 ug/mL (10.0-20.0)
== END | disposition home or self-care (01) ==
LOC: LABWHC1 08:49
PROVIDERS: ATTEND Psychiatry & Neurology Neurology
DX: G40.909 Epilepsy, unspecified, not intractable, without status epilepticus (principal)
CPT/HCPCS: 36415; 80183; 80185; 80201; 80235; 84295; 84450; 84460

== ENCOUNTER → 2023-01-03 | Outpatient (CLI) | payer MEDICARE, OTHER ==
[2023-01-03 14:28] LABS: Basophils % (A) 0 %; Eosinophils # (A) 0.1 k/uL (0-0.7); Eosinophils % (A) 4 %; HGB 13.6 gm/dL (11.4-16.0); Hypochromasia Slight; Lymphocytes # (A) 0.5 k/uL (1.0-4.8); Lymphocytes % (A) 16 %; MCH 31.6 pg (25.0-35.0); MCHC 30.8 g/dL (31.0-37.0); MCV 102.4 fL (80.0-100.0); Macrocytosis Slight; Mean Platelet Volume 9.1; Monocytes # (A) 0.3 k/uL (0-1.0); Monocytes % (A) 11 %; Neutrophils # (A) 2.1 k/uL (1.3-7.7); Neutrophils % (A) 66 %; Platelet Count 182 k/uL (150-450); RBC 4.29 m/uL (3.80-5.40); RDW 12.9 % (11.5-15.5); WBC 3.1 k/uL (3.8-10.6)
[2023-01-04 03:39] LABS: Chol/HDL Ratio 1.85 Ratio; LDL Cholesterol,Calculated 92.9 mg/dL (0.0-131.0); T4, Free (Free Thyroxine) 0.98 ng/dL (0.80-1.80); VLDL Calculation 8.12 mg/dL (5.00-40.00)
[2023-01-04 03:41] LABS: ALT 28 U/L (8-44); AST 30 U/L (13-35); Albumin 4.4 d/dL (3.8-4.9); Albumin/Globulin Ratio 1.52 Ratio (1.60-3.17); Alkaline Phosphatase 135 U/L (41-126); BUN/Creat Ratio 15.11 Ratio (12.00-20.00); Blood Urea Nitrogen 13.6 mg/dL (9.0-27.0); Calcium 9.6 mg/dL (8.7-10.3); Carbon Dioxide 22.3 mmol/L (21.6-31.8); Chloride 104 mmol/L (96-109); Globulin 2.9 d/dL (1.6-3.3); Glucose 86 mg/dL (70-110); Potassium 4.1 mmol/L (3.5-5.5); Sodium 139 mmol/L (135-145); Total Bilirubin <0.2 mg/dL (0.3-1.2); Total Protein 7.3 d/dL (6.2-8.2)
== END | disposition home or self-care (01) ==
LOC: LABWHC1 09:23
PROVIDERS: ATTEND General Practice
DX: Z00.01 Encounter for general adult medical examination with abnormal findings (principal); Z12.31 Encounter for screening mammogram for malignant neoplasm of breast; Z12.4 Encounter for screening for malignant neoplasm of cervix; I10 Essential (primary) hypertension; I69.351 Hemiplegia and hemiparesis following cerebral infarction affecting right dominant side; I69.30 Unspecified sequelae of cerebral infarction; E78.5 Hyperlipidemia, unspecified; E03.9 Hypothyroidism, unspecified; Z79.899 Other long term (current) drug therapy
CPT/HCPCS: 36415; 80053; 80061; 84439; 84443; 85025

== ENCOUNTER 2023-01-11 11:36 | Emergency (ER) | payer MEDICARE, OTHER ==
[2023-01-11 11:40] VITALS: BP 116/69; TEMP 97.7
[2023-01-11] MEDS ORDERED: PROPARACAINE 0.5% OPHTH DROPS 15 ML BTL RIGHT EYE STA (12:29)
[2023-01-11] MEDS ORDERED: FLUORESCEIN STRIPS 1 MG STRIP RIGHT EYE ONE (12:29)
--- NOTE | 2023-01-11 12:48 | ED ---
General Adult HPI - General Chief complaint: Eye Problems Stated complaint: eye infection Time Seen by Provider: 01/11/23 12:25 Source: patient, RN notes reviewed, Caregiver Mode of arrival: ambulatory Limitations: language barrier, altered mental status, physical limitation - History of Present Illness Initial comments: 58-year-old female presents to the emergency department chief complaint of right eye redness and discharge 2 days. Her caregiver is in the room with her today who reports that this morning her eye was crusted shut and has had some white/yellow drainage. Her caregiver states that someone in the group-home she lives in had similar symptoms recently. Denies fever, chills. - Related Data Home Medications Medication Instructions Recorded Confirmed Cholecalciferol [Vitamin D3 (25 2,000 unit PO BID@0600,199901/22/14 08/08/20 Mcg = 1000 Iu)] Cyanocobalamin [Vitamin B-12] 1,000 mcg PO Q48H 01/22/14 08/08/20 LORazepam [Ativan] 1 mg PO DAILY PRN 01/22/14 08/08/20 Levothyroxine Sodium [Synthroid] 50 mcg PO DAILY@59901/22/14 08/08/20 Nystatin 100,000 Unit/gm Powd 1 applic TOPICAL BID@0600,1900 01/22/14 08/08/20 [Mycostatin Powder] OXcarbazepine [Trileptal] 600 mg PO HS@1800 01/22/14 08/08/20 Phenytoin Sodium Extended 100 mg PO DAILY@59901/22/14 08/08/20 [Dilantin] Topiramate 200 mg PO DAILY@59901/22/14 08/08/20 Lacosamide [Vimpat] 100 mg PO DAILY@0605/03/17 08/08/20 Topiramate [Topamax] 50 mg PO HS@1900 05/03/17 08/08/20 Lacosamide [Vimpat] 50 mg PO BID@0612/25/08/08/20 Andi-Gest 500mg Chewable 500 mg PO DAILY@0600 07/02/20 08/08/20 Donepezil HCl [Aricept] 10 mg PO DAILY@1600 07/02/20 08/08/20 Lacosamide [Vimpat] 200 mg PO HS@1900 12/20/20 01/26/21 Lactose-Reduced Food [Ensure Plus] 1 can PO DAILY PRN 07/02/20 08/08/20 Memantine [Namenda] 10 mg PO DAILY@189907/02/20 08/08/20 OXcarbazepine [Trileptal] 900 mg PO DAILY@0600 07/02/20 08/08/20 Omeprazole 20 mg PO DAILY@189907/02/20 08/08/20 Phenytoin Sodium Extended 60 mg PO HS@19007/02/20 08/08/20 [Dilantin] Tinactin 1% [place] Powder 1 applic TOPICAL BID@0600,189907/02/20 08/08/20 Topiramate [Topamax] 100 mg PO DAILY@189907/02/20 08/08/20 clonazePAM [Klonopin ODT Wafer] 0.25 mg PO HS@189907/02/20 08/08/20 Previous Rx's Medication Instructions Recorded Apixaban [Eliquis] 5 mg PO BID 30 Days #60 tab 08/11/20 Allergies Allergy/AdvReac Type Severity Reaction Status Date / Time No Known Allergies Allergy Verified 01/11/23 11:39 Review of Systems ROS Statement: Those systems with pertinent positive or pertinent negative responses have been documented in the HPI. ROS Other: All systems not noted in ROS Statement are negative. Past Medical History Past Medical History: CVA/TIA, Seizure Disorder, Thyroid Disorder Additional Past Medical History / Comment(s): Mild retardation, CEREBRAL PALSY, intrauterine stroke, CVA 2010, chronic right sided weakness, blood clots, History of Any Multi-Drug Resistant Organisms: None Reported Past Surgical History: Ventriculoperitoneal Shunt Past Anesthesia/Blood Transfusion Reactions: No Reported Reaction, Unable to Obtain Past Psychological History: No Psychological Hx Reported Smoking Status: Never smoker Past Alcohol Use History: None Reported Past Drug Use History: None Reported - Past Family History Father Family Medical History: No Reported History General Exam Limitations: language barrier, physical limitation General appearance: alert, in no apparent distress Head exam: Present: atraumatic, normocephalic, normal inspection Eye exam: Present: PERRL, EOMI, conjunctival injection, other (crusting of eyelashes, Wood's lamp exam showed no abnormal corneal uptake). Absent: periorbital swelling, periorbital tenderness ENT exam: Present: normal exam, mucous membranes moist Neck exam: Present: normal inspection. Absent: tenderness, meningismus, lymphadenopathy Respiratory exam: Present: normal lung sounds bilaterally. Absent: respiratory distress, wheezes, rales, rhonchi, stridor Cardiovascular Exam: Present: regular rate, normal rhythm, normal heart sounds. Absent: systolic murmur, diastolic murmur, rubs, gallop, clicks Neurological exam: Present: alert Psychiatric exam: Present: normal affect, normal mood Skin exam: Present: warm, dry, intact, normal color. Absent: rash Course Vital Signs 01/11/23 01/11/23 11:37 13:15 Temperature 97.7 F Pulse Rate 76 82 Respiratory 20 18 Rate Blood Pressure 116/69 O2 Sat by Pulse 97 97 Oximetry Medical Decision Making - Medical Decision Making Was pt. sent in by a medical professional or institution (, PA, HANDLE MAKER, urgent care, hospital, or senior care...) When possible be specific @ -No Did you speak to anyone other than the patient for history (EMS, parent, family, police, friend...)? What history was obtained from this source @ -patients caregiver provided some of the history for this patient Did you review nursing and triage notes (agree or disagree)? Why? @ -I reviewed and agree with nursing and triage notes Were old charts reviewed (outside hosp., previous admission, EMS record, old EKG, old radiological studies, urgent care reports/EKG's, senior care records)? Report findings @ -No old charts were reviewed Differential Diagnosis (chest pain, altered mental status, abdominal pain women, abdominal pain men, vaginal bleeding, weakness, fever, dyspnea, syncope, headache, dizziness, GI bleed, back pain, seizure, CVA, palpatations, mental health, musculoskeletal)? @ -bacterial conjunctivitis, viral conjunctivitis, corneal abrasion, foreign body, iritis, this list is not all inclusive EKG interpreted by me (3pts min.). @ -none X-rays interpreted by me (1pt min.). @ -None done CT interpreted by me (1pt min.). @ -None done U/S interpreted by me (1pt. min.). @ -None done What testing was considered but not performed or refused? (CT, X-rays, U/S, labs)? Why? @ -None What meds were considered but not given or refused? Why? @ -None Did you discuss the management of the patient with other professionals (professionals i.e. , PA, HANDLE MAKER, lab, RT, psych nurse, geriatric social worker, maintenance of way foreman, teacher, activities officer, special education case manager)? Give summary @ -No Was smoking cessation discussed for >3mins.? @ -No Was critical care preformed (if so, how long)? @ -No Were there social determinants of health that impacted care today? How? (Homelessness, low income, unemployed, alcoholism, drug addiction, transportation, low edu. Level, literacy, decrease access to med. care, correction, rehab)? @ -No Was there de-escalation of care discussed even if they declined (Discuss DNR or withdrawal of care, Hospice)? DNR status @ -No What co-morbidities impacted this encounter? (DM, HTN, Smoking, COPD, CAD, Cancer, CVA, ARF, Chemo, Hep., AIDS, mental health diagnosis, sleep apnea, morbid obesity)? @ -None Was patient admitted / discharged? Hospital course, mention meds given and route, prescriptions, significant lab abnormalities, going to OR and other pertinent info. @ -discharged. patient presented to the emergency department with caregiver for chief complaint of right eye redness and yellow discharge x2 days. Her caregiver states that there are other individuals in her nursing home with similar symptoms. Kellogg lamp exam showed no evidence for corneal abrasion. Visual acuity was attempted but unable to be adequately assessed from patients disability. She is reporting no changes in her vision. Patient stable for discharge with conjunctivitis treatment based on clinical presentation and history. Patient given antibiotic drops for bacterial conjunctivitis, advised to apply warm compresses. Case discussed with my attending, Dr. Kauffman. Undiagnosed new problem with uncertain prognosis? @ -No Drug Therapy requiring intensive monitoring for toxicity (Heparin, Nitro, Insulin, Cardizem)? @ -No Were any procedures done? @ -No Diagnosis/symptom? @ -conjunctivitis Acute, or Chronic, or Acute on Chronic? @ -acute Uncomplicated (without systemic symptoms) or Complicated (systemic symptoms)? @ -uncomplicated Side effects of treatment? @ -No Exacerbation, Progression, or Severe Exacerbation? @ -No Poses a threat to life or bodily function? How? (Chest pain, [place], [place], pneumonia, PE, COPD, DKA, ARF, appy, cholecystitis, CVA, Diverticulitis, Homicidal, Suicidal, threat to staff... and all critical care pts) @ -No Disposition Clinical Impression: Bacterial conjunctivitis Disposition: HOME SELF-CARE Condition: Stable Instructions (If sedation given, give patient instructions): Conjunctivitis (ED) Additional Instructions: Apply warm compress to the eye. Instill 2 eye drops in the right eye every 6 hours for 5-7 days. Return to the emergency department for new or worsening symptoms. Is patient prescribed a controlled substance at d/c from ED?: No Referrals: Dm Nuñez MD [Primary Care Provider] - 1-2 days Time of Disposition: 13:06
[2023-01-11] MEDS ORDERED: POLYMYXIN B-TRIMETHOPRIM SULF (10,000-1) OPHTH DROPS 10 ML BTL RIGHT EYE STA (13:08)
[2023-01-11 13:17] VITALS: PULSE 82; RESP 18
== END 2023-01-11 13:16 | disposition home or self-care (01) ==
LOC: EC 11:36
DX: H10.89 Other conjunctivitis (principal); E07.9 Disorder of thyroid, unspecified; Z86.73 Personal history of transient ischemic attack (TIA), and cerebral infarction without residual deficits; Z79.890 Hormone replacement therapy; Z79.899 Other long term (current) drug therapy
CPT/HCPCS: 99283

== ENCOUNTER → 2023-01-28 | Outpatient (CLI) | payer MEDICARE, OTHER ==
--- NOTE | 2023-01-29 09:17 | CA ---
Transthoracic Echo Report Name: Radha Malcolm Age: 58 Gender: F : 1965 Exam Date: 01/28/2023 13:34 Exam Location: [facility] Ht (in): 62 Wt (lb): 175 Ordering Physician: Dm Nuñez MD Attending/Referring Phys: [id number], Joaquin Parts Picker Prudence Sarmiento, RDJUDITH Procedure CPT: Indications: I10 E03.9 Cardiac Hx: Technical Quality: Fair Contrast 1: Total Dose (mL): Contrast 2: Total Dose (mL): MEASUREMENTS (Male / Female) Normal Values 2D ECHO LV Diastolic Diameter PLAX 3.1 cm 4.2 - 5.9 / 3.9 - 5.3 cm LV Systolic Diameter PLAX 2.1 cm IVS Diastolic Thickness 1.0 cm 0.6 - 1.0 / 0.6 - 0.9 cm LVPW Diastolic Thickness 1.0 cm 0.6 - 1.0 / 0.6 - 0.9 cm LV Relative Wall Thickness 0.7 RV Internal Dim ED PLAX 2.6 cm LA Systolic Diameter LX 2.5 cm 3.0 - 4.0 / 2.7 - 3.8 cm LA Volume 38.8 cm??? 18 - 58 / 22 - 52 cm??? M-MODE Aortic Root Diameter MM 3.1 cm MV E Point Septal Separation 0.7 cm AV Cusp Separation MM 2.1 cm DOPPLER AV Peak Velocity 164.0 cm/s AV Peak Gradient 10.8 mmHg AI Peak Velocity 356.4 cm/s AI Peak Gradient 50.8 mmHg AI Pressure Half Time 631.1 ms MV Area PHT 3.6 cm??? Mitral E Point Velocity 92.3 cm/s Mitral A Point Velocity 68.0 cm/s Mitral E to A Ratio 1.4 MV Deceleration Time 208.8 ms FINDINGS Left Ventricle Left ventricular ejection fraction is estimated at 55-60 %. Small left ventricular cavity. Left ventricular wall thickness normal. Normal left ventricular wall motion. Right Ventricle Normal right ventricular size and function. Unable to estimate the right ventricular systolic pressure. Right Atrium Normal right atrial size. Left Atrium Normal left atrial size. Mitral Valve Structurally normal mitral valve. No mitral stenosis, regurgitation or prolapse. Mitral annular calcification. Aortic Valve Trileaflet aortic valve. Mild aortic regurgitation. Tricuspid Valve Structurally normal tricuspid valve. No tricuspid stenosis, regurgitation or prolapse. Pulmonic Valve Pulmonic valve not well visualized. Mild pulmonic regurgitation. Pericardium Normal pericardium. No pericardial effusion. Aorta Aortic root and proximal ascending aorta not well visualized. CONCLUSIONS Normal LV size, wall thickness and systolic function. Estimated LVEF 55-60%. No obvious regional wall motion abnormality. No significant diastolic dysfunction. No significant valvular dysfunction. Overall normal chamber sizes. No pericardial effusion. No prior echo to compare with. Previewed by: Dr Huang Ward (Electronically Signed) Final Date: 28 January 2023 15:33
== END | disposition home or self-care (01) ==
LOC: RADECHMAIN 12:38
PROVIDERS: ATTEND General Practice
DX: Z00.01 Encounter for general adult medical examination with abnormal findings (principal); Z12.4 Encounter for screening for malignant neoplasm of cervix; I35.1 Nonrheumatic aortic (valve) insufficiency; I37.1 Nonrheumatic pulmonary valve insufficiency; I10 Essential (primary) hypertension; E03.9 Hypothyroidism, unspecified; E78.5 Hyperlipidemia, unspecified; I69.351 Hemiplegia and hemiparesis following cerebral infarction affecting right dominant side; Z79.899 Other long term (current) drug therapy
CPT/HCPCS: 93306

== ENCOUNTER → 2023-02-13 | Outpatient (CLI) | payer MEDICARE, OTHER ==
--- NOTE | 2023-02-13 11:45 | P.PN ---
Subjective DATE: 02/13/2023 FOLLOW UP VISIT. Patient with obstructive sleep apnea hypopnea syndrome return to sleep center for follow-up visit. Information from previous visit have been reviewed. Patient is using PAP equipment every night for the whole night, getting PAP supplies in time. The patient does not have significant problems with the mask, PAP unit and humidification. [place] sleepiness scale is increased to 12. I checked information from PAP unit. BPAP unit pressure 21/15 cm H2O, patient is on additional oxygen supplement during the night. Usage is 98 % for more then 4 hours, average 10 hours per night. Leak is 25 l/m, which is in acceptable range, significantly less than during previous visit when it was 74 L/m. Apnea Hypopnea Index is is in very high range of 33.6. MEDICATIONS:1. Atorvastatin 10 mg once a day 2. Dilantin 30 mg once a day 3. Donepezil 10 mg once a day 4. Eliquis 5 mg once a day 5. Levothyroxine 50 g once a day 6. Losartan 25 mg once a day 7. Topiramate 200 mg twice a day 8. Oxcarbazepine 300 mg 2 tablets in the morning and 1 tablet in the evening During physical exam: GENERAL: A pleasant patient without any distress. Patient is in wheelchair. VITAL SIGNS: BP 135/61, HR 65, RR 18 , weight 183, temperature 98.4, oxygen saturation at room air 95 % . HEENT: PERRLA, EOMI.low position of soft palate, Mallapati 4 . NECK: Supple. No JVD. LUNGS: Clear . HEART: S1, S2 regular. ABDOMEN: Soft and nontender.[] EXTREMITIES: No clubbing or cyanosis. LAYAWAY CLERK: Awake, alert, and oriented x3. Impressions: 1. Obstructive sleep apnea-hypopnea syndrome. Patient demonstrated good compliance with treatment, but apnea-hypopnea index reading from BiPAP unit is in very high range. 2. History of cerebral palsy. 3. History of dementia. 4. Hypothyroidism. 5. Acid reflux. Plan: 1. BiPAP titration for evaluation of effective pressure at the present time and also to check for necessary level of oxygen supplement. 2. To change air filter at least 1-2 times per month. 3. PAP unit should stay lower then position of the head. 4. Advised patient to remove all remaining water from humidifier canister daily and make it dry after each usage. Refill canister with fresh distilled water before each usage. 5. Sleep hygiene with regular time in bed for at least 8 hours. 6. Precautions related to driving. No driving if feel any sleepiness. 7. I will maintain prescription for PAP supplies including mask, tube, filters. 8. Follow up visit in 6 months or earlier if patient has any problems. Thank you very much for allowing me to participate in the management of your patient. Chad Levin MD, PhD, FAASM. Diplomat of [place] [employer], Sleep Medicine Board by [place] [employer] Customer Services Supervisor of [facility] [place]
== END ==
LOC: 3 N SLEEP 10:43
PROVIDERS: ATTEND Internal Medicine
DX: G47.33 Obstructive sleep apnea (adult) (pediatric) (principal); F03.90 Unspecified dementia, unspecified severity, without behavioral disturbance, psychotic disturbance, mood disturbance, and anxiety; G80.9 Cerebral palsy, unspecified; E03.9 Hypothyroidism, unspecified; K21.9 Gastro-esophageal reflux disease without esophagitis; Z79.01 Long term (current) use of anticoagulants; Z79.890 Hormone replacement therapy; Z79.899 Other long term (current) drug therapy; Z99.89 Dependence on other enabling machines and devices
CPT/HCPCS: 99212

== ENCOUNTER 2023-04-23 15:45 | Inpatient (IN) | payer MEDICARE, OTHER ==
[2023-04-23 17:31] LABS: Appearance,Urine Cloudy (Clear); Bacteria,Urine Occasional /hpf; Bilirubin,Urine Negative (Negative); Blood,Urine Negative (Negative); Calcium Oxalate Crystals,Urine Occasional /hpf; Color,Urine Red; Glucose,Urine (UA) Negative (Negative); Ketones,Urine Trace (Negative); Leukocyte Esterase,Urine Negative (Negative); Mucus,Urine Few /hpf; Nitrite,Urine Negative (Negative); Protein,Urine 1+ (Negative); RBC,Urine 2 /hpf (0-5); Specific Gravity,Urine 1.026 (1.001-1.035); Squamous Epithelial Cell,Urine 14 /hpf (0-4); Urobilinogen,Urine <2.0 mg/dL (<2.0); WBC,Urine 5 /hpf (0-5)
[2023-04-23 17:57] LABS: Basophils % (A) 0 %; Eosinophils # (A) 0.1 k/uL (0-0.7); Eosinophils % (A) 5 %; HCT 43.6 % (34.0-46.0); HGB 13.6 gm/dL (11.4-16.0); Lymphocytes # (A) 0.9 k/uL (1.0-4.8); Lymphocytes % (A) 30 %; MCH 32.1 pg (25.0-35.0); MCHC 31.2 g/dL (31.0-37.0); MCV 102.8 fL (80.0-100.0); Macrocytosis Slight; Mean Platelet Volume 8.1; Monocytes # (A) 0.3 k/uL (0-1.0); Monocytes % (A) 9 %; Neutrophils # (A) 1.6 k/uL (1.3-7.7); Neutrophils % (A) 52 %; Platelet Count 169 k/uL (150-450); RBC 4.24 m/uL (3.80-5.40); RDW 12.6 % (11.5-15.5)
--- NOTE | 2023-04-23 17:58 | ED ---
General Adult HPI - General Chief complaint: Weakness Stated complaint: Vomiting,Seizure Time Seen by Provider: 04/23/23 17:00 Source: patient, family, RN notes reviewed, old records reviewed Mode of arrival: wheelchair Limitations: physical limitation - History of Present Illness Initial comments: 58-year-old female presents from senior living with lethargy, vomiting. History is obtained from the caregiver from the senior living where the patient resides. She's had 2 or 3 days of increased lethargy, poor appetite, and several episodes of vomiting. The vomiting occurred 2 days prior. There was concern for urinary tract infection and the primary care provider had started nitrofurantoin today. no Measured fever. No complaints of abdominal pain or chest pain. - Related Data Home Medications Medication Instructions Recorded Confirmed Cholecalciferol [Vitamin D3 (25 2,000 unit PO BID@0600,199901/22/14 08/08/20 Mcg = 1000 Iu)] Cyanocobalamin [Vitamin B-12] 1,000 mcg PO Q48H 01/22/14 08/08/20 LORazepam [Ativan] 1 mg PO DAILY PRN 01/22/14 08/08/20 Levothyroxine Sodium [Synthroid] 50 mcg PO DAILY@59901/22/14 08/08/20 Nystatin 100,000 Unit/gm Powd 1 applic TOPICAL BID@0600,1900 01/22/14 08/08/20 [Mycostatin Powder] OXcarbazepine [Trileptal] 600 mg PO HS@1800 01/22/14 08/08/20 Phenytoin Sodium Extended 100 mg PO DAILY@59901/22/14 08/08/20 [Dilantin] Topiramate 200 mg PO DAILY@59901/22/14 08/08/20 Lacosamide [Vimpat] 100 mg PO DAILY@0605/03/17 08/08/20 Topiramate [Topamax] 50 mg PO HS@1900 05/03/17 08/08/20 Lacosamide [Vimpat] 50 mg PO BID@0612/25/08/08/20 Andi-Gest 500mg Chewable 500 mg PO DAILY@0600 07/02/20 08/08/20 Donepezil HCl [Aricept] 10 mg PO DAILY@1600 07/02/20 08/08/20 Lacosamide [Vimpat] 200 mg PO HS@189907/02/20 08/08/20 Lactose-Reduced Food [Ensure Plus] 1 can PO DAILY PRN 07/02/20 08/08/20 Memantine [Namenda] 10 mg PO DAILY@19007/02/20 08/08/20 OXcarbazepine [Trileptal] 900 mg PO DAILY@0600 07/02/20 08/08/20 Omeprazole 20 mg PO DAILY@189907/02/20 08/08/20 Phenytoin Sodium Extended 60 mg PO HS@189907/02/20 08/08/20 [Dilantin] Tinactin 1% Martin Powder 1 applic TOPICAL BID@0600,189907/02/20 08/08/20 Topiramate [Topamax] 100 mg PO DAILY@189907/02/20 08/08/20 clonazePAM [Klonopin ODT Wafer] 0.25 mg PO HS@189907/02/20 08/08/20 Previous Rx's Medication Instructions Recorded Apixaban [Eliquis] 5 mg PO BID 30 Days #60 tab 08/11/20 Allergies Allergy/AdvReac Type Severity Reaction Status Date / Time No Known Allergies Allergy Verified 04/23/23 16:13 Review of Systems ROS Statement: Those systems with pertinent positive or pertinent negative responses have been documented in the HPI. ROS Other: All systems not noted in ROS Statement are negative. Past Medical History Past Medical History: CVA/TIA, Seizure Disorder, Thyroid Disorder Additional Past Medical History / Comment(s): Mild retardation, CEREBRAL PALSY, intrauterine stroke, CVA 2010, chronic right sided weakness, blood clots, History of Any Multi-Drug Resistant Organisms: None Reported Past Surgical History: Ventriculoperitoneal Shunt Past Anesthesia/Blood Transfusion Reactions: No Reported Reaction, Unable to Obtain Past Psychological History: No Psychological Hx Reported Smoking Status: Never smoker Past Alcohol Use History: None Reported Past Drug Use History: None Reported - Past Family History Father Family Medical History: No Reported History General Exam General appearance: alert, in no apparent distress Head exam: Present: atraumatic, normocephalic Eye exam: Present: normal appearance, PERRL ENT exam: Present: mucous membranes dry Neck exam: Present: normal inspection. Absent: tenderness, meningismus Respiratory exam: Present: normal lung sounds bilaterally. Absent: respiratory distress, wheezes, rales Cardiovascular Exam: Present: regular rate, normal rhythm GI/Abdominal exam: Present: soft. Absent: distended, tenderness, guarding Extremities exam: Present: normal inspection, normal capillary refill. Absent: pedal edema Neurological exam: Present: alert. Absent: motor sensory deficit Skin exam: Present: warm, dry Course Vital Signs 04/23/23 16:09 Temperature 99 F Pulse Rate 59 L Respiratory 18 Rate Blood Pressure 142/88 O2 Sat by Pulse 95 Oximetry - Reevaluation(s) Reevaluation #1: 04/23/23 22:02 I did have a discussion with the patient's sister Jessie who is at bedside. She states that the superior vena cava syndrome was diagnosed approximately 2 years ago. She states that the patient is a DO NOT RESUSCITATE. Medical Decision Making - Medical Decision Making Was pt. sent in by a medical professional or institution (, PA, PARTS ANALYST, urgent care, hospital, or fci...) When possible be specific @ -No Did you speak to anyone other than the patient for history (EMS, parent, family, police, friend...)? What history was obtained from this source @ -No Did you review nursing and triage notes (agree or disagree)? Why? @ -I reviewed and agree with nursing and triage notes Were old charts reviewed (outside hosp., previous admission, EMS record, old EKG, old radiological studies, urgent care reports/EKG's, fci records)? Report findings @ -No old charts were reviewed Differential Diagnosis (chest pain, altered mental status, abdominal pain women, abdominal pain men, vaginal bleeding, weakness, fever, dyspnea, syncope, headache, dizziness, GI bleed, back pain, seizure, CVA, palpatations, mental health, musculoskeletal)? @ -not applicable EKG interpreted by me (3pts min.). @ -[Sinus bradycardia rate of 56, RI interval 153, QRS duration 101, QTC 434 X-rays interpreted by me (1pt min.). @ No pneumothorax, no focal pneumonia CT interpreted by me (1pt min.). 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 She does have some effusions as well. U/S interpreted by me (1pt. min.). @ -None done What testing was considered but not performed or refused? (CT, X-rays, U/S, labs)? Why? @ -None What meds were considered but not given or refused? Why? @ -None Did you discuss the management of the patient with other professionals (professionals i.e. , PA, PARTS ANALYST, lab, RT, psych nurse, community mental health social worker, intermediate card tender, teacher, radio electronics officer, wrapper caser)? Give summary @ -Case discussed with Dr. Adhikari Was smoking cessation discussed for >3mins.? @ -No Was critical care preformed (if so, how long)? @ -No Were there social determinants of health that impacted care today? How? (Homelessness, low income, unemployed, alcoholism, drug addiction, transportation, low edu. Level, literacy, decrease access to med. care, fdc, rehab)? @ -No Was there de-escalation of care discussed even if they declined (Discuss DNR or withdrawal of care, Hospice)? DNR status @ -[Patient is a DO NOT RESUSCITATE What co-morbidities impacted this encounter? (DM, HTN, Smoking, COPD, CAD, Cancer, CVA, ARF, Chemo, Hep., AIDS, mental health diagnosis, sleep apnea, morbid obesity)? @ -Superior vena cava syndrome Was patient admitted / discharged? Hospital course, mention meds given and route, prescriptions, significant lab abnormalities, going to OR and other pertinent info. @ -[58-year-old female with lethargy, weakness, hypoxia. Laboratory testing is essentially unremarkable. There is concern for PE as patient has prior history. 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 She is a DO NOT RESUSCITATE. She will be given IV diuresis and admitted. Will likely continue to require supplemental oxygen. Undiagnosed new problem with uncertain prognosis? @ -No Drug Therapy requiring intensive monitoring for toxicity (Heparin, Nitro, Insulin, Cardizem)? @ -No Were any procedures done? @ -No Diagnosis/symptom? @Hypoxia, superior vena cava syndrome Acute, or Chronic, or Acute on Chronic? @ -[Acute on Chronic Uncomplicated (without systemic symptoms) or Complicated (systemic symptoms)? @ -[Complicated Side effects of treatment? @ -No Exacerbation, Progression, or Severe Exacerbation? @ -No Poses a threat to life or bodily function? How? (Chest pain, [place], [place], pneumonia, PE, COPD, DKA, ARF, appy, cholecystitis, CVA, Diverticulitis, Homicidal, Suicidal, threat to staff... and all critical care pts) @ -[Yes, respiratory failure - Lab Data Result diagrams: 04/23/23 17:30 04/23/23 17:30 Lab Results 04/23/23 04/23/23 04/23/23 Range/Units 16:55 17:30 17:30 WBC 3.0 L (3.8-10.6) k/uL RBC 4.24 (3.80-5.40) m/uL Hgb 13.6 (11.4-16.0) gm/dL Hct 43.6 (34.0-46.0) % MCV 102.8 H (80.0-100.0) fL MCH 32.1 (25.0-35.0) pg MCHC 31.2 (31.0-37.0) g/dL RDW 12.6 (11.5-15.5) % Plt Count 169 (150-450) k/uL MPV 8.1 Neutrophils % 52 % Lymphocytes % 30 % Monocytes % 9 % Eosinophils % 5 % Basophils % 0 % Neutrophils # 1.6 (1.3-7.7) k/uL Lymphocytes # 0.9 L (1.0-4.8) k/uL Monocytes # 0.3 (0-1.0) k/uL Eosinophils # 0.1 (0-0.7) k/uL Basophils # 0.0 (0-0.2) k/uL Macrocytosis Slight PT 11.5 (9.0-12.0) sec INR 1.1 (<1.2) APTT 28.0 (22.0-30.0) sec Sodium (137-145) mmol/L Potassium (3.5-5.1) mmol/L Chloride (98-107) mmol/L Carbon Dioxide (22-30) mmol/L Anion Gap mmol/L BUN (7-17) mg/dL Creatinine (0.52-1.04) mg/dL Est GFR (CKD-EPI)AfAm (>60 ml/min/1.73 sqM) Est GFR (CKD-EPI)NonAf (>60 ml/min/1.73 sqM) Glucose (74-99) mg/dL Plasma Lactic Acid Haresh (0.7-2.0) mmol/L Calcium (8.4-10.2) mg/dL Magnesium (1.6-2.3) mg/dL Total Bilirubin (0.2-1.3) mg/dL AST (14-36) U/L ALT (4-34) U/L Alkaline Phosphatase (38-126) U/L Troponin I (0.000-0.034) ng/mL NT-Pro-B Natriuret Pep pg/mL Total Protein (6.3-8.2) g/dL Albumin (3.5-5.0) g/dL Urine Color Red Urine Appearance Cloudy H (Clear) Urine pH 6.0 (5.0-8.0) Ur Specific [place] 1.026 (1.001-1.035) Urine Protein 1+ H (Negative) Urine Glucose (UA) Negative (Negative) Urine Ketones Trace H (Negative) Urine Blood Negative (Negative) Urine Nitrite Negative (Negative) Urine Bilirubin Negative (Negative) Urine Urobilinogen <2.0 (<2.0) mg/dL Ur Leukocyte Esterase Negative (Negative) Urine RBC 2 (0-5) /hpf Urine WBC 5 (0-5) /hpf Ur Squamous Epith Cells 14 H (0-4) /hpf Calcium Oxalate Crystal Occasional H (None) /hpf Urine Bacteria Occasional H (None) /hpf Urine Mucus Few H (None) /hpf 04/23/23 04/23/23 04/23/23 Range/Units 17:30 17:30 17:30 WBC (3.8-10.6) k/uL RBC (3.80-5.40) m/uL Hgb (11.4-16.0) gm/dL Hct (34.0-46.0) % MCV (80.0-100.0) fL MCH (25.0-35.0) pg MCHC (31.0-37.0) g/dL RDW (11.5-15.5) % Plt Count (150-450) k/uL MPV Neutrophils % % Lymphocytes % % Monocytes % % Eosinophils % % Basophils % % Neutrophils # (1.3-7.7) k/uL Lymphocytes # (1.0-4.8) k/uL Monocytes # (0-1.0) k/uL Eosinophils # (0-0.7) k/uL Basophils # (0-0.2) k/uL Macrocytosis PT (9.0-12.0) sec INR (<1.2) APTT (22.0-30.0) sec Sodium 139 (137-145) mmol/L Potassium 3.6 (3.5-5.1) mmol/L Chloride 106 (98-107) mmol/L Carbon Dioxide 22 (22-30) mmol/L Anion Gap 11 mmol/L BUN 10 (7-17) mg/dL Creatinine 0.77 (0.52-1.04) mg/dL Est GFR (CKD-EPI)AfAm >90 (>60 ml/min/1.73 sqM) Est GFR (CKD-EPI)NonAf 85 (>60 ml/min/1.73 sqM) Glucose 95 (74-99) mg/dL Plasma Lactic Acid Haresh 1.2 (0.7-2.0) mmol/L Calcium 9.4 (8.4-10.2) mg/dL Magnesium 1.7 (1.6-2.3) mg/dL Total Bilirubin 0.3 (0.2-1.3) mg/dL AST 42 H (14-36) U/L ALT 35 H (4-34) U/L Alkaline Phosphatase 137 H (38-126) U/L Troponin I (0.000-0.034) ng/mL NT-Pro-B Natriuret Pep 124 pg/mL Total Protein 7.5 (6.3-8.2) g/dL Albumin 4.3 (3.5-5.0) g/dL Urine Color Urine Appearance (Clear) Urine pH (5.0-8.0) Ur Specific [place] (1.001-1.035) Urine Protein (Negative) Urine Glucose (UA) (Negative) Urine Ketones (Negative) Urine Blood (Negative) Urine Nitrite (Negative) Urine Bilirubin (Negative) Urine Urobilinogen (<2.0) mg/dL Ur Leukocyte Esterase (Negative) Urine RBC (0-5) /hpf Urine WBC (0-5) /hpf Ur Squamous Epith Cells (0-4) /hpf Calcium Oxalate Crystal (None) /hpf Urine Bacteria (None) /hpf Urine Mucus (None) /hpf 04/23/23 Range/Units 18:50 WBC (3.8-10.6) k/uL RBC (3.80-5.40) m/uL Hgb (11.4-16.0) gm/dL Hct (34.0-46.0) % MCV (80.0-100.0) fL MCH (25.0-35.0) pg MCHC (31.0-37.0) g/dL RDW (11.5-15.5) % Plt Count (150-450) k/uL MPV Neutrophils % % Lymphocytes % % Monocytes % % Eosinophils % % Basophils % % Neutrophils # (1.3-7.7) k/uL Lymphocytes # (1.0-4.8) k/uL Monocytes # (0-1.0) k/uL Eosinophils # (0-0.7) k/uL Basophils # (0-0.2) k/uL Macrocytosis PT (9.0-12.0) sec INR (<1.2) APTT (22.0-30.0) sec Sodium (137-145) mmol/L Potassium (3.5-5.1) mmol/L Chloride (98-107) mmol/L Carbon Dioxide (22-30) mmol/L Anion Gap mmol/L BUN (7-17) mg/dL Creatinine (0.52-1.04) mg/dL Est GFR (CKD-EPI)AfAm (>60 ml/min/1.73 sqM) Est GFR (CKD-EPI)NonAf (>60 ml/min/1.73 sqM) Glucose (74-99) mg/dL Plasma Lactic Acid Haresh (0.7-2.0) mmol/L Calcium (8.4-10.2) mg/dL Magnesium (1.6-2.3) mg/dL Total Bilirubin (0.2-1.3) mg/dL AST (14-36) U/L ALT (4-34) U/L Alkaline Phosphatase (38-126) U/L Troponin I <0.012 (0.000-0.034) ng/mL NT-Pro-B Natriuret Pep pg/mL Total Protein (6.3-8.2) g/dL Albumin (3.5-5.0) g/dL Urine Color Urine Appearance (Clear) Urine pH (5.0-8.0) Ur Specific [place] (1.001-1.035) Urine Protein (Negative) Urine Glucose (UA) (Negative) Urine Ketones (Negative) Urine Blood (Negative) Urine Nitrite (Negative) Urine Bilirubin (Negative) Urine Urobilinogen (<2.0) mg/dL Ur Leukocyte Esterase (Negative) Urine RBC (0-5) /hpf Urine WBC (0-5) /hpf Ur Squamous Epith Cells (0-4) /hpf Calcium Oxalate Crystal (None) /hpf Urine Bacteria (None) /hpf Urine Mucus (None) /hpf Disposition Clinical Impression: SVC obstruction, Hypoxia Disposition: ADMITTED IP TO THIS HOSP Condition: Stable Is patient prescribed a controlled substance at d/c from ED?: No Referrals: Dm Nuñez MD [Primary Care Provider] - 1-2 days Time of Disposition: 22:06
--- NOTE | 2023-04-23 18:02 | XR ---
EXAMINATION TYPE: XR chest 2V DATE OF EXAM: 04/23/2023 5:48 PM COMPARISON: Chest radiographs from 08/08/2020 TECHNIQUE: XR chest 2V Frontal and lateral views of the chest. 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 Lungs/Pleura: No focal consolidation or pneumothorax. Blunting of the left costophrenic angle. Pulmonary vascularity: Pulmonary vascular congestion. Heart/mediastinum: Cardiomediastinal silhouette is enlarged and stable. Musculoskeletal: No acute osseous pathology. IMPRESSION: Cardiomegaly, pulmonary vascular congestion and small left pleural effusion. Correlate with BNP for c ongestive heart failure.
[2023-04-23 18:08] LABS: INR 1.1 (<1.2); Prothrombin Time 11.5 sec (9.0-12.0)
[2023-04-23 18:13] LABS: ALT 35 U/L (4-34); AST 42 U/L (14-36); African American GFR (CKD) >90 (>60 ml/min/1.73 sqM); Albumin 4.3 g/dL (3.5-5.0); Alkaline Phosphatase 137 U/L (38-126); Anion Gap 11 mmol/L; Blood Urea Nitrogen 10 mg/dL (7-17); Calcium 9.4 mg/dL (8.4-10.2); Carbon Dioxide 22 mmol/L (22-30); Chloride 106 mmol/L (98-107); Glucose 95 mg/dL (74-99); Magnesium 1.7 mg/dL (1.6-2.3); Non-African American GFR(CKD) 85 (>60 ml/min/1.73 sqM); Potassium 3.6 mmol/L (3.5-5.1); Sodium 139 mmol/L (137-145); Total Bilirubin 0.3 mg/dL (0.2-1.3); Total Protein 7.5 g/dL (6.3-8.2)
--- NOTE | 2023-04-23 21:30 | CT ---
EXAMINATION TYPE: CT angio chest CT DLP: 795 mGycm, Automated exposure control for dose reduction was used. DATE OF EXAM: 04/23/2023 8:48 PM COMPARISON: 08/08/2020 CLINICAL INDICATION:Female, 58 years old with history of Hypoxia/MAXWELL; hypoxia and MAXWELL TECHNIQUE/CONTRAST: CTA scan of the thorax is performed with IV Contrast, patient injected with 100 CC mL of Isovue 370, MIP images are created and reviewed these are created on a separate workstation.. FINDINGS: Pulmonary Artery: Questionable filling defects are seen within the subsegmental pulmonary arteries. E valuation limited by motion. Lungs/Pleura: No evidence of focal consolidation, pleural effusion or pneumothorax. Airway: Large airways are patent. Heart: Heart is within normal limits for size. Vasculature: No evidence of aortic aneurysm. Multiple collateral vessels are seen along the left ches t wall in the upper abdomen. There is a slitlike appearance of the superior vena cava with absence of flow on series 411 image 54. Findings of superior vena cava occlusion at appear complete compared to prior in 2020 where there is trickle flow. Mediastinum: No gross evidence of adenopathy. Multiple collaterals extend along the mediastinum. Musculoskeletal: No acute osseous abnormalities Soft Tissues: Unremarkable. Lower neck: No significant findings. Upper Abdomen: Perfusional abnormality within the liver secondary to the evidence of superior vena ca va syndrome. IMPRESSION: 1. Findings compatible with superior vena cava syndrome with occlusion of the superior vena cava breanna r the superior cavoatrial junction. Series 411 image 54. Multiple collateral vessels extending along the subcutaneous tissues and into the abdomen into the IVC. This is felt to be likely completely occl uded on today's exam compared to 2020. 2. Respiratory motion limits evaluation there is thought to be small filling defects within the pulm onary arterial vasculature which are suboptimally evaluated given motion and bolus timing and superio r vena cava syndrome. 3. Small bilateral pleural effusions.
[2023-04-23] MEDS ORDERED: NALOXONE 0.4 MG/ML 1 ML VIAL IV PRN (22:01)
[2023-04-23] MEDS ORDERED: FUROSEMIDE 10 MG/ML 4 ML VIAL IV STA (22:03)
[2023-04-23] MEDS ORDERED: LORazepam 1 MG TAB PO PRN (22:31)
[2023-04-23] MEDS ORDERED: APIXABAN 5 MG TAB PO SCH (23:00)
[2023-04-23] MEDS ORDERED: TOPIRAMATE 100 MG TAB PO SCH (23:15)
[2023-04-24] MEDS ORDERED: APIXABAN 5 MG TAB PO ONE ×2 (00:57→01:00)
[2023-04-24] MEDS ORDERED: TOPIRAMATE 100 MG TAB PO ONE ×2 (00:58→01:00)
[2023-04-24] MEDS ORDERED: LEVOTHYROXINE 50 MCG TAB PO SCH (06:00)
[2023-04-24] MEDS ORDERED: APIXABAN 5 MG TAB PO SCH (06:00)
[2023-04-24] MEDS ORDERED: LACOSAMIDE 50 MG TABLET PO SCH ×3 (06:00→19:00)
[2023-04-24] MEDS ORDERED: TOPIRAMATE 100 MG TAB PO SCH (06:00)
[2023-04-24] MEDS ORDERED: OXcarbazepine 300 MG TAB PO SCH ×2 (06:00→18:00)
[2023-04-24] MEDS ORDERED: LOSARTAN 25 MG TAB PO SCH (06:00)
[2023-04-24] MEDS ORDERED: PHENYTOIN SODIUM EXTENDED 100 MG CAP PO SCH (06:00)
[2023-04-24] MEDS ORDERED: FUROSEMIDE 10 MG/ML 4 ML VIAL IV SCH (09:00)
[2023-04-24 09:17] VITALS: BP 123/67; PULSE 71; TEMP 97.6
[2023-04-24 11:22] VITALS: RESP 20
[2023-04-24] MEDS ORDERED: DONEPEZIL 10 MG TAB PO SCH (16:00)
--- NOTE | 2023-04-24 16:56 | P.HPIM ---
History of Present Illness H&P Date: 04/24/23 Chief Complaint: Cyanosis History of presenting complaint: This is a 58-year-old patient followed by a visiting physician Dr. Dm messina. Sister. Rosa at the bedside. She lives at the [facility]. Stopped walking 2010. able to feed herself with the left arm. Right arm is chronically weak. And it was under developed. 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 Has been on anticoagulation for the same. She was then seen by vascular. Patient was brought into the ER for vertebral pulmonary pathology some vomiting. 1-3 days patient to be increasingly lethargic. Decreased appetite. The episodes of vomiting. No abdominal pain no chest pain. Computed tomography scan in the ER didn't show superior vena cava syndrome with occlusion of superior went out Near the superior Awake she'll junction. Audible collateral vessels. Patient also was cyanosed and she first came in. This morning patient doing much better. sister. the bedside. She understands that options are limited. Patient's CODE STATUS is DO NOT RESUSCITATE. Patient is on anticoagulation chronically. Patient is able to answer simple questions. We will often repeat herself. Appears comfortable otherwise. Was only requiring 2 L of oxygen this morning. Review of systems: GEN.: Tired EYES: None HEENT: Face fullness NECK: None RESPIRATORY: None CARDIOVASCULAR: None GASTROINTESTINAL: None GENITOURINARY: None MUSCULOSKELETAL: Left arm swelling LYMPHATICS: None HEMATOLOGICAL: None PSYCHIATRY: None NEUROLOGICAL: Under developed right arm. Cerebral palsy Past medical history to include: Stroke, seizure disorder, hypothyroid, cerebral palsy, stroke in 2010 with the right-sided weakness. 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 Superior vena cava syndrome. Social history: Lives at the [facility]. No history of smoking or alcohol. Stepmother helps out father Greyson is the POA. Physical examination: VITAL SIGNS: 99, 59, 18, 142/88, 95% on room air upon presentation. GENERAL: BMI 30.7, laying in bed, appears comfortable EYES: Pupils equal. Conjunctiva normal. HEENT: [A bit swollen face. Some fullness of neck veins HEART: First and second heart sounds are normal; mild edema. LUNGS: Respiratory rate increased; decreased breath sound. ABDOMEN: Soft, nontender, liver spleen not palpable, no masses palpable. PSYCH: Able answer simple questionsl. EXTREMITY: Swelling of the left upper extremity NEUROLOGICAL: [Cranial nerves grossly intact; no facial asymmetry, under developed right arm. Some weakness of the right leg. LYMPHATICS: No lymph nodes palpable in the axilla and neck INVESTIGATIONS, reviewed in the clinical context: April 23: White count at 3 hemoglobin 13.6 platelets 169 sodium 139 potassium 3.6 creatinine 0.77 Troponin I less than 0.012 ProBNP 124 UA: Negative for leukoesterase and nitrites EKG tracing personally reviewed by me-normal sinus rhythm. Chest x-ray film personally reviewed by me-somewhat underpenetrated. Some mediastinal fullness Chest CTA: Multiple collateral vessels seen along the left chest wall and upper abdomen. Findings of superior vena cava occlusion at appeared complete. Assessment and plan: -Worsening superior vena cava syndrome. This was first detected in 2020. Patient has been on eliquis. -Superficial venous thrombosis of the left Cephulac remained -Epilepsy disorder Dilantin. Vimpat. -Hypothyroid Synthroid 50 g a day -Severe cognitive impairment from cerebral palsy -Chronic cerebral palsy -Chronic medical debility. 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 -DO NOT RESUSCITATE -Legal guardian: Father Greyson Malcolm In the ER patient put on IV Lasix. This be discontinued. Discussed with Regulous patient's sister Rosa the bedside. She understands overall prognosis guarded. Options are very few if any. Continue with anticoagulation. We will check patient's pulse ox on room air. Past Medical History Past Medical History: CVA/TIA, Seizure Disorder, Thyroid Disorder Additional Past Medical History / Comment(s): Mild retardation, CEREBRAL PALSY, intrauterine stroke, CVA 2010, chronic right sided weakness, blood clots, History of Any Multi-Drug Resistant Organisms: None Reported Past Surgical History: Ventriculoperitoneal Shunt Past Anesthesia/Blood Transfusion Reactions: No Reported Reaction, Unable to Obtain Past Psychological History: No Psychological Hx Reported Smoking Status: Never smoker Past Alcohol Use History: None Reported Past Drug Use History: None Reported - Past Family History Father Family Medical History: No Reported History Medications and Allergies Home Medications Medication Instructions Recorded Confirmed Type Cholecalciferol [Vitamin D3 (25 50 unit PO DAILY@0600 01/22/14 04/23/23 History Mcg = 1000 Iu)] LORazepam [Ativan] 1 mg PO DAILY PRN 01/22/14 04/23/23 History Levothyroxine Sodium [Synthroid] 50 mcg PO DAILY@0600 01/22/14 04/23/23 History OXcarbazepine [Trileptal] 300 mg PO HS@1800 01/22/14 04/23/23 History Phenytoin Sodium Extended 100 mg PO DAILY@0600 01/22/14 04/23/23 History [Dilantin] Topiramate 200 mg PO BID@0600,1900 01/22/14 04/23/23 History Lacosamide [Vimpat] 100 mg PO DAILY@0600 05/03/17 04/23/23 History Lacosamide [Vimpat] 50 mg PO DAILY@0600 12/25/17 04/23/23 History Donepezil HCl [Aricept] 10 mg PO DAILY@1600 07/02/20 04/23/23 History Lacosamide [Vimpat] 200 mg PO HS@19007/02/20 04/23/23 History Memantine [Namenda] 10 mg PO DAILY@1900 07/02/20 04/23/23 History OXcarbazepine [Trileptal] 300 mg PO DAILY@0600 07/02/20 04/23/23 History Omeprazole 20 mg PO DAILY@1900 07/02/20 04/23/23 History Phenytoin Sodium Extended 60 mg PO HS@1900 07/02/20 04/23/23 History [Dilantin] clonazePAM [Klonopin ODT Wafer] 0.25 mg PO HS@1900 07/02/20 04/23/23 History Apixaban [Eliquis] 5 mg PO BID@0600,1900 04/23/23 04/23/23 History Atorvastatin [Lipitor] 10 mg PO HS@1900 04/23/23 04/23/23 History Calcium Carbonate [Tums] 500 mg PO DAILY@0600 04/23/23 04/23/23 History Fluconazole [Diflucan] 200 mg PO DAILY@0600 04/23/23 04/23/23 History Losartan [Cozaar] 25 mg PO DAILY@0600 04/23/23 04/23/23 History Nitrofurantoin Monohyd/M-Cryst 100 mg PO BID@0600,1900 04/23/23 04/23/23 History [Macrobid] Allergies Allergy/AdvReac Type Severity Reaction Status Date / Time No Known Allergies Allergy Verified 04/23/23 16:13 Physical Exam Vitals: Vital Signs Temp Pulse Pulse Resp BP BP Pulse Ox 04/24/23 09:00 78 18 132/78 99 04/24/23 08:35 97.6 F 71 18 123/67 99 04/24/23 06:30 60 17 156/72 100 04/23/23 16:09 99 F 59 L 18 142/88 95 Intake and Output 04/23/23 04/24/23 04/24/23 22:59 06:59 14:59 Other: Weight 81.193 kg 81.193 kg Results CBC & Chem 7: 04/23/23 17:30 04/23/23 17:30 Labs: Abnormal Lab Results - Last 24 Hours (Table) 04/23/23 04/23/23 04/23/23 Range/Units 16:55 17:30 17:30 WBC 3.0 L (3.8-10.6) k/uL MCV 102.8 H (80.0-100.0) fL Lymphocytes # 0.9 L (1.0-4.8) k/uL AST 42 H (14-36) U/L ALT 35 H (4-34) U/L Alkaline Phosphatase 137 H (38-126) U/L Urine Appearance Cloudy H (Clear) Urine Protein 1+ H (Negative) Urine Ketones Trace H (Negative) Ur Squamous Epith Cells 14 H (0-4) /hpf Calcium Oxalate Crystal Occasional H (None) /hpf Urine Bacteria Occasional H (None) /hpf Urine Mucus Few H (None) /hpf Thrombosis Risk Factor Assmnt - Choose All That Apply Each Factor Represents 1 point: Age 41-60 years Each Risk Factor Represents 3 Points: History of DVT/PE Other congenital or acquired thrombophilia - If yes, enter type in comment: No Thrombosis Risk Factor Assessment Total Risk Factor Score: 4 Thrombosis Risk Factor Assessment Level: Moderate Risk
--- NOTE | 2023-04-24 18:58 | P.DS ---
Providers Date of admission: 04/23/23 22:02 Expected date of discharge: 04/24/23 Attending physician: Moe Adhikari Primary care physician: Dm Nuñez MD Hospital Course: Chief Complaint: Cyanosis History of presenting complaint: This is a 58-year-old patient followed by a visiting physician Dr. Dm nuñez. Sister. Rosa at the bedside. She lives at the [facility]. Stopped walking 2010. able to feed herself with the left arm. Right arm is chronically weak. And it was under developed. 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 Has been on anticoagulation for the same. She was then seen by vascular. Patient was brought into the ER for vertebral pulmonary pathology some vomiting. 1-3 days patient to be increasingly lethargic. Decreased appetite. The episodes of vomiting. No abdominal pain no chest pain. Computed tomography scan in the ER didn't show superior vena cava syndrome with occlusion of superior went out Near the superior Awake she'll junction. Audible collateral vessels. Patient also was cyanosed and she first came in. This morning patient doing much better. sister. the bedside. She understands that options are limited. Patient's CODE STATUS is DO NOT RESUSCITATE. Patient is on anticoagulation chronically. Patient is able to answer simple questions. We will often repeat herself. Appears comfortable otherwise. Was only requiring 2 L of oxygen this morning. Patient oximeter was checked again. Doing well well on pulse ox on room air. No oxygen required. Discussed with sister at the bedside. Discharged to half-way. Sister understood that patient's prognosis is guarded. Past medical history to include: Stroke, seizure disorder, hypothyroid, cerebral palsy, stroke in 2010 with the right-sided weakness. 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 Superior vena cava syndrome. Social history: Lives at the [facility]. No history of smoking or alcohol. Stepmother helps out father Greyson is the POA. Physical examination: VITAL SIGNS: 99, 59, 18, 142/88, 95% on room air upon presentation. GENERAL: BMI 30.7, laying in bed, appears comfortable EYES: Pupils equal. Conjunctiva normal. HEENT: [A bit swollen face. Some fullness of neck veins HEART: First and second heart sounds are normal; mild edema. LUNGS: Respiratory rate increased; decreased breath sound. ABDOMEN: Soft, nontender, liver spleen not palpable, no masses palpable. PSYCH: Able answer simple questionsl. EXTREMITY: Swelling of the left upper extremity NEUROLOGICAL: [Cranial nerves grossly intact; no facial asymmetry, under developed right arm. Some weakness of the right leg. LYMPHATICS: No lymph nodes palpable in the axilla and neck INVESTIGATIONS, reviewed in the clinical context: April 23: White count at 3 hemoglobin 13.6 platelets 169 sodium 139 potassium 3.6 creatinine 0.77 Troponin I less than 0.012 ProBNP 124 UA: Negative for leukoesterase and nitrites EKG tracing personally reviewed by me-normal sinus rhythm. Chest x-ray film personally reviewed by me-somewhat underpenetrated. Some mediastinal fullness Chest CTA: Multiple collateral vessels seen along the left chest wall and upper abdomen. Findings of superior vena cava occlusion at appeared complete. Assessment and plan: -Worsening superior vena cava syndrome. This was first detected in 2020. Continue eliquis. -Superficial venous thrombosis of the left Cephulac remained -Epilepsy disorder Dilantin. Vimpat. -Hypothyroid Synthroid 50 g a day -Severe cognitive impairment from cerebral palsy -Chronic cerebral palsy -Chronic medical debility. Patient non ambulatory -[employer]ELOP[employer] shunt -Chronic occlusive DVT. -DO NOT RESUSCITATE -Legal guardian: Father Greyson Malcolm Disposition: Home Past Medical History Past Medical History: CVA/TIA, Seizure Disorder, Thyroid Disorder Additional Past Medical History / Comment(s): Mild retardation, CEREBRAL PALSY, intrauterine stroke, CVA 2010, chronic right sided weakness, blood clots, History of Any Multi-Drug Resistant Organisms: None Reported Past Surgical History: Ventriculoperitoneal Shunt Past Anesthesia/Blood Transfusion Reactions: No Reported Reaction, Unable to Obtain Past Psychological History: No Psychological Hx Reported Smoking Status: Never smoker Past Alcohol Use History: None Reported Past Drug Use History: None Reported - Past Family History Father Family Medical History: No Reported History Plan - Discharge Summary Discharge Rx Participant: Yes New Discharge Prescriptions: Continue LORazepam [Ativan] 1 mg PO DAILY PRN PRN Reason: Seizures lasting 4min Phenytoin Sodium Extended [Dilantin] 100 mg PO DAILY@0600 Levothyroxine Sodium [Synthroid] 50 mcg PO DAILY@0600 Topiramate 200 mg PO BID@0600,1900 OXcarbazepine [Trileptal] 300 mg PO HS@1800 Cholecalciferol [Vitamin D3 (25 Mcg = 1000 Iu)] 50 unit PO DAILY@0600 Lacosamide [Vimpat] 100 mg PO DAILY@0600 Lacosamide [Vimpat] 50 mg PO DAILY@0600 Lacosamide [Vimpat] 200 mg PO HS@1900 OXcarbazepine [Trileptal] 300 mg PO DAILY@0600 Omeprazole 20 mg PO DAILY@1900 Memantine [Namenda] 10 mg PO DAILY@1900 Donepezil HCl [Aricept] 10 mg PO DAILY@1600 Phenytoin Sodium Extended [Dilantin] 60 mg PO HS@1900 clonazePAM [Klonopin ODT Wafer] 0.25 mg PO HS@1900 Losartan [Cozaar] 25 mg PO DAILY@0600 Atorvastatin [Lipitor] 10 mg PO HS@1900 Calcium Carbonate [Tums] 500 mg PO DAILY@0600 Fluconazole [Diflucan] 200 mg PO DAILY@0600 Nitrofurantoin Monohyd/M-Cryst [Macrobid] 100 mg PO BID@0600,1900 Apixaban [Eliquis] 5 mg PO BID@0600,1900 Discharge Medication List Cholecalciferol [Vitamin D3 (25 Mcg = 1000 Iu)] 50 unit PO DAILY@0600 01/22/14 [History] LORazepam [Ativan] 1 mg PO DAILY PRN 01/22/14 [History] Levothyroxine Sodium [Synthroid] 50 mcg PO DAILY@0600 01/22/14 [History] OXcarbazepine [Trileptal] 300 mg PO HS@1800 01/22/14 [History] Phenytoin Sodium Extended [Dilantin] 100 mg PO DAILY@0601/22/14 [History] Topiramate 200 mg PO BID@0600,1900 01/22/14 [History] Lacosamide [Vimpat] 100 mg PO DAILY@0600 05/03/17 [History] Lacosamide [Vimpat] 50 mg PO DAILY@0600 12/25/17 [History] Donepezil HCl [Aricept] 10 mg PO DAILY@1600 07/02/20 [History] Lacosamide [Vimpat] 200 mg PO HS@1900 07/02/20 [History] Memantine [Namenda] 10 mg PO DAILY@1900 07/02/20 [History] OXcarbazepine [Trileptal] 300 mg PO DAILY@0600 07/02/20 [History] Omeprazole 20 mg PO DAILY@189907/02/20 [History] Phenytoin Sodium Extended [Dilantin] 60 mg PO HS@189907/02/20 [History] clonazePAM [Klonopin ODT Wafer] 0.25 mg PO HS@189907/02/20 [History] Apixaban [Eliquis] 5 mg PO BID@0600,1900 04/23/23 [History] Atorvastatin [Lipitor] 10 mg PO HS@189904/23/23 [History] Calcium Carbonate [Tums] 500 mg PO DAILY@0604/23/23 [History] Fluconazole [Diflucan] 200 mg PO DAILY@0604/23/23 [History] Losartan [Cozaar] 25 mg PO DAILY@0600 04/23/23 [History] Nitrofurantoin Monohyd/M-Cryst [Macrobid] 100 mg PO BID@0600,1900 04/23/23 [History] Follow up Appointment(s)/Referral(s): Dm Nuñez MD [Primary Care Provider] - 1-2 days Discharge Disposition: HOME SELF-CARE
[2023-04-24] MEDS ORDERED: CLONAZEPAM 0.25 MG PO SCH (19:00)
[2023-04-24] MEDS ORDERED: NON FORMULARY DRUG (Phenytoin Sodium Extended [Dilantin] 30 MG Capsule) PO SCH (19:00)
[2023-04-24] MEDS ORDERED: MEMANTINE 10 MG TAB PO SCH (19:00)
--- NOTE | 2023-04-28 11:35 | CDI ---
Documentation Clarification Form Date: 04/28/2023 11:18:41 AM From: Katie Nguyen RN, CCDS Email: [email or web address] Admit Date: 04/23/2023 10:02:00 PM Patient Name: Radha Malcolm Visit Number: [id number] Discharge Date: 04/24/2023 12:30:00 PM ATTENTION: The Clinical Documentation Specialists (CDI) and [facility] Coding Staff appreciate your assistance in clarifying documentation. Please respond to the clarification below the line at the bottom and electronically sign. The CDI & [facility] Coding staff will review the response and follow-up if needed. Please note: Queries are made part of the Legal Health Record. If you have any questions, please contact the author of this message via ITS. Dr. 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 Based on this information and the findings below, is there an additional diagnosis that is clinically appropriate for this patient? Patient history/risk factors: SVC, superficial venous thrombosis left cephalic vein, stroke, severe cognitive impairment, seizure disorder, hypothyroid, CP, HIGH LIFT OPERATOR shunt. Presented with lethargy, vomiting and hypoxia. Admitted with worsening superior vena cava syndrome. Clinical Indicators: 04/23 CXR: Cardiomegaly, pulmonary vascular congestion and small left pleural effusion. 04/23 CTA chest: Findings compatible with superior vena cava syndrome with occlusion of the superior vena cava near the superior cavoatrial junction. Multiple collateral vessels extending along the subcutaneous tissues and into the abdomen into the IVC. This is felt to be likely completely occluded on today's exam compared to 2020. Small bilateral pleural effusions. H&P: "LUNGS: Respiratory rate increased; decreased breath sound. Worsening superior vena cava syndrome." Treatment: IV Lasix 40mg x1 on 04/23 then Q12H; Eliquis 5mg po BID Is there an additional diagnosis that is clinically appropriate for this patient? [ ] Acute Pulmonary Edema [ ] No additional diagnosis/Not clinically significant [ ] Unable to determine [ ] Other, please specify ___no pulmonary edema.____ MTDD
== END 2023-04-24 12:30 | disposition home or self-care (01) | DRG 300 ==
LOC: EC 15:45 → 4SSUR 22:02 → 1SOBS 04-24 08:32
PROVIDERS: ADMIT Hospitalist; ATTEND Hospitalist
DX: I87.1 Compression of vein (principal); I69.351 Hemiplegia and hemiparesis following cerebral infarction affecting right dominant side; I82.722 Chronic embolism and thrombosis of deep veins of left upper extremity; Z79.01 Long term (current) use of anticoagulants; G80.9 Cerebral palsy, unspecified; G40.909 Epilepsy, unspecified, not intractable, without status epilepticus; E03.9 Hypothyroidism, unspecified; Z66 Do not resuscitate; R09.02 Hypoxemia; Z79.890 Hormone replacement therapy; Z79.899 Other long term (current) drug therapy; Z98.2 Presence of cerebrospinal fluid drainage device
CPT/HCPCS: 36415; 71046; 71275; 80053; 81001; 83605; 83735; 83880; 84484; 85025; 85610; 85730; 93005; 96374; 99285

== ENCOUNTER 2023-04-24 19:35 | Emergency (ER) | payer MEDICARE, OTHER ==
[2023-04-24 19:59] VITALS: RESP 18; TEMP 98.1
--- NOTE | 2023-04-24 21:23 | ED ---
General Adult HPI - General Chief complaint: Shortness of Breath Stated complaint: SOB Time Seen by Provider: 04/24/23 20:06 Source: patient, family (Sister), EMS Mode of arrival: EMS Limitations: physical limitation - History of Present Illness Initial comments: This patient is 58-year-old woman with history of superior vena cava syndrome, as well as cerebral palsy. All of the history is given by the patient's sister who states she is also one of her medical decision makers. The patient had just been in the hospital for similar symptoms including dyspnea, found to have the superior vena cava obstruction, and that she was discharged back to her care facility. Patient's sister states that they are focusing on comfort care and that they do not seek any treatment for the SVC syndrome. Tonight at the home, they move the patient to use the bathroom and noticed that her oxygen saturations decreased into the 80s. They sent her back to see if supplemental oxygen can be arranged. No new symptoms, no fever, cough or complaints of pain. -: hour(s) Severity scale (1-10): 0 Consistency: now resolved Improves with: none Worsens with: none Treatments Prior to Arrival: none - Related Data Home Medications Medication Instructions Recorded Confirmed Cholecalciferol [Vitamin D3 (25 50 unit PO DAILY@0601/22/14 04/24/23 Mcg = 1000 Iu)] LORazepam [Ativan] 1 mg PO DAILY PRN 01/22/14 04/24/23 Levothyroxine Sodium [Synthroid] 50 mcg PO DAILY@0600 01/22/14 04/24/23 OXcarbazepine [Trileptal] 300 mg PO HS@1800 01/22/14 04/24/23 Phenytoin Sodium Extended 100 mg PO DAILY@0601/22/14 04/24/23 [Dilantin] Topiramate 200 mg PO BID@0600,1900 01/22/14 04/24/23 Lacosamide [Vimpat] 100 mg PO DAILY@0600 05/03/17 04/24/23 Lacosamide [Vimpat] 50 mg PO DAILY@0600 12/25/17 04/24/23 Donepezil HCl [Aricept] 10 mg PO DAILY@1600 07/02/20 04/24/23 Lacosamide [Vimpat] 200 mg PO HS@1900 07/02/20 04/24/23 Memantine [Namenda] 10 mg PO DAILY@1900 07/02/20 04/24/23 OXcarbazepine [Trileptal] 300 mg PO DAILY@0600 07/02/20 04/24/23 Omeprazole 20 mg PO DAILY@1900 07/02/20 04/24/23 Phenytoin Sodium Extended 60 mg PO HS@1900 07/02/20 04/24/23 [Dilantin] clonazePAM [Klonopin ODT Wafer] 0.25 mg PO HS@1900 07/02/20 04/24/23 Apixaban [Eliquis] 5 mg PO BID@0600,1900 04/23/23 04/24/23 Atorvastatin [Lipitor] 10 mg PO HS@1900 04/23/23 04/24/23 Calcium Carbonate [Tums] 500 mg PO DAILY@0600 04/23/23 04/24/23 Fluconazole [Diflucan] 200 mg PO DAILY@0600 04/23/23 04/24/23 Losartan [Cozaar] 25 mg PO DAILY@0600 04/23/23 04/24/23 Nitrofurantoin Monohyd/M-Cryst 100 mg PO BID@0600,1900 04/23/23 04/24/23 [Macrobid] Allergies Allergy/AdvReac Type Severity Reaction Status Date / Time No Known Allergies Allergy Verified 04/24/23 21:08 Review of Systems ROS Statement: Those systems with pertinent positive or pertinent negative responses have been documented in the HPI. ROS Other: All systems not noted in ROS Statement are negative. Limitations: ROS unobtainable due to patients medical condition Constitutional: Denies: fever Respiratory: Denies: cough Cardiovascular: Denies: chest pain Gastrointestinal: Denies: vomiting Past Medical History Past Medical History: CVA/TIA, Seizure Disorder, Thyroid Disorder Additional Past Medical History / Comment(s): Mild retardation, CEREBRAL PALSY, intrauterine stroke, CVA 2010, chronic right sided weakness, blood clots, History of Any Multi-Drug Resistant Organisms: None Reported Past Surgical History: Ventriculoperitoneal Shunt Past Anesthesia/Blood Transfusion Reactions: No Reported Reaction, Unable to Obtain Past Psychological History: No Psychological Hx Reported Smoking Status: Never smoker Past Alcohol Use History: None Reported Past Drug Use History: None Reported - Past Family History Father Family Medical History: No Reported History General Exam Limitations: no limitations General appearance: alert, in no apparent distress Head exam: Present: atraumatic, normocephalic Eye exam: Present: normal appearance. Absent: scleral icterus, conjunctival injection Respiratory exam: Present: normal lung sounds bilaterally. Absent: respiratory distress, wheezes, rales, rhonchi, stridor Cardiovascular Exam: Present: regular rate, normal rhythm, normal heart sounds. Absent: systolic murmur, diastolic murmur, rubs, gallop GI/Abdominal exam: Present: soft. Absent: tenderness, guarding, rebound Extremities exam: Present: normal inspection, normal capillary refill. Absent: pedal edema, calf tenderness Neurological exam: Present: alert Skin exam: Present: warm, dry, intact, normal color. Absent: rash Course Vital Signs 04/24/23 04/24/23 04/24/23 19:45 19:53 21:51 Temperature 98.1 F Pulse Rate 65 72 Respiratory 18 18 18 Rate Blood Pressure 137/80 136/78 O2 Sat by Pulse 97 97 Oximetry Medical Decision Making - Medical Decision Making I did have detailed discussion with patient's sister at the bedside. They wanted to see if oxygen could be arranged, and I explained that this typically is not possible through the ER but that the patient's visiting physician can arrange this probably tomorrow. The patient does have a BiPAP at home that they will use, on an as-needed basis, until the supplemental oxygen can be arranged. They would like to go home, and at this point appears stable for that. Was pt. sent in by a medical professional or institution (JOSE Moss, [employer], urgent care, hospital, or residential...) When possible be specific @ -[Sent from long-term care facility to have evaluation Did you speak to anyone other than the patient for history (EMS, parent, family, police, friend...)? What history was obtained from this source @ -[Patient's sister did give history Did you review nursing and triage notes (agree or disagree)? Why? @ -[I reviewed and agree with nursing and triage notes] Were old charts reviewed (outside hosp., previous admission, EMS record, old EKG, old radiological studies, urgent care reports/EKG's, residential records)? Report findings @ -[No old charts were reviewed] Differential Diagnosis (chest pain, altered mental status, abdominal pain women, abdominal pain men, vaginal bleeding, weakness, fever, dyspnea, syncope, headache, dizziness, GI bleed, back pain, seizure, CVA, palpatations, mental health, musculoskeletal)? @ -[Differential Dyspnea: Coronary syndrome, arrhythmia, tamponade, asthma, COPD, pulmonary embolism, pneumonia, pneumothorax, pulmonary effusion, anaphylaxis, diabetic ketoacidosis, flailed chest, pulmonary contusion, diaphragmatic rupture, anemia, neuromuscular, this is not meant to be an all-inclusive list. EKG interpreted by me (3pts min.). @ -[ X-rays interpreted by me (1pt min.). @ -[None done] CT interpreted by me (1pt min.). @ -[None done] U/S interpreted by me (1pt. min.). @ -[None done] What testing was considered but not performed or refused? (CT, X-rays, U/S, labs)? Why? @ -[None] What meds were considered but not given or refused? Why? @ -[None] Did you discuss the management of the patient with other professionals (professionals i.e. , PA, [employer], lab, RT, psych nurse, social security specialist, cheese maker, teacher, science and operations officer, corrections caseworker)? Give summary @ -[No] Was smoking cessation discussed for >3mins.? @ -[No] Was critical care preformed (if so, how long)? @ -[No] Were there social determinants of health that impacted care today? How? (Homelessness, low income, unemployed, alcoholism, drug addiction, transportation, low edu. Level, literacy, decrease access to med. care, usp, rehab)? @ -[No] Was there de-escalation of care discussed even if they declined (Discuss DNR or withdrawal of care, Hospice)? DNR status @ -Yes case is discussed and they definitely want DO NOT RESUSCITATE status What co-morbidities impacted this encounter? (DM, HTN, Smoking, COPD, CAD, Cancer, CVA, ARF, Chemo, Hep., AIDS, mental health diagnosis, sleep apnea, morbid obesity)? @ -[None] Was patient admitted / discharged? Hospital course, mention meds given and route, prescriptions, significant lab abnormalities, going to OR and other pertinent info. @ -[See the course above, discharged Undiagnosed new problem with uncertain prognosis? @ -[No] Drug Therapy requiring intensive monitoring for toxicity (Heparin, Nitro, Insulin, Cardizem)? @ -[No] Were any procedures done? @ -[No] Diagnosis/symptom? @ -[Acute dyspnea, resolved Superior vena cava obstruction, chronic Acute, or Chronic, or Acute on Chronic? @ -[See above Uncomplicated (without systemic symptoms) or Complicated (systemic symptoms)? @ -[Uncomplicated Side effects of treatment? @ -[No] Exacerbation, Progression, or Severe Exacerbation? @ -[No] Poses a threat to life or bodily function? How? (Chest pain, [place], AR, pneumonia, PE, COPD, DKA, ARF, appy, cholecystitis, CVA, Diverticulitis, Homicidal, Suicidal, threat to staff... and all critical care pts) @ -[Just superior vena cava obstruction is threat to life, but they do not desire any surgical intervention Disposition Clinical Impression: SVC obstruction Disposition: HOME SELF-CARE Condition: Fair Instructions (If sedation given, give patient instructions): Dyspnea (ED) Is patient prescribed a controlled substance at d/c from ED?: No Referrals: Dm Nuñez MD [Primary Care Provider] - 1-2 days
[2023-04-24 22:01] VITALS: BP 136/78; PULSE 72
== END 2023-04-24 22:01 | disposition home or self-care (01) ==
LOC: EC 19:35
DX: I82.210 Acute embolism and thrombosis of superior vena cava (principal); E07.9 Disorder of thyroid, unspecified; Z86.73 Personal history of transient ischemic attack (TIA), and cerebral infarction without residual deficits; Z79.01 Long term (current) use of anticoagulants; Z79.890 Hormone replacement therapy
CPT/HCPCS: 99285

== ENCOUNTER → 2024-01-29 | Outpatient (CLI) | payer MEDICARE, OTHER ==
[2024-01-29 20:13] LABS: Phenytoin (Dilantin) 11.7 UG/ML (10.0-20.0)
== END | disposition home or self-care (01) ==
LOC: LABWHC1 09:50
PROVIDERS: ATTEND Psychiatry & Neurology Neurology
DX: G40.909 Epilepsy, unspecified, not intractable, without status epilepticus (principal)
CPT/HCPCS: 36415; 80183; 80185; 80201; 80235; 84295; 84450; 84460

== ENCOUNTER → 2024-05-27 | Outpatient (CLI) | payer MEDICARE, OTHER ==
[2024-05-27 14:39] VITALS: BP 127/84; PULSE 60; RESP 16; TEMP 98.1
--- NOTE | 2024-05-27 15:16 | P.PROGSL ---
Subjective DATE: 05/27/2024 FOLLOW UP VISIT. Patient with obstructive sleep apnea hypopnea syndrome return to sleep center for follow-up visit. Information from previous visit have been reviewed. Patient is using PAP equipment every night for the whole night, getting PAP supplies in time. The patient does not have significant problems with the mask, PAP unit and humidification. According to medical staff she snores and feels sleepiness during the day. [place] sleepiness scale is significantly increased to 17. I checked information from PAP unit. PAP unit pressure 21/15 cm H2O. Usage is 100% for more then 4 hours, average 11.4 hours per night. Apnea Hypopnea Index is increased to 24.7. MEDICATIONS have been reviewed, please see below. During physical exam: GENERAL: A pleasant patient without any distress on wheelchair. VITAL SIGNS: Please see below, weight is 180 lbs. HEENT: PERRLA, EOMI.low position of soft palate, Mallapati 4 . NECK: Supple. No JVD. LUNGS: Clear to percussion and to auscultation. Good air exchange. No wheezing or rhonchi. HEART: S1, S2 regular. ABDOMEN: Soft and nontender. Obese EXTREMITIES: No clubbing or cyanosis. WAFER FAB TECHNICIAN: Awake, alert, and oriented x3. No focal deficit. Impressions: 1. Obstructive sleep apnea-hypopnea syndrome. Patient demonstrated great compliance with treatment, benefiting from treatment. Apnea-hypopnea index significantly increased. 2. Obesity. 3. History of cerebral palsy. 4. Dementia. 5. Hypothyroidism. 6. Acid reflux. I changed parameters of BiPAP to auto BiPAP with maximal inspiratory pressure 25 and minimal expiratory pressure 15 cm of water. Plan: 1. Continue using PAP equipment every night for the whole night. 2. Sleep hygiene with regular time in bed for at least 7.5-8 hours 3. PAP unit should stay lower then position of the head. 4. Advised patient to remove all remaining water from humidifier canister daily and make it dry after each usage. Refill canister with fresh distilled water before each usage. 5. Watching and losing weight. 6. Precautions related to driving. No driving if feel any sleepiness. 7. I will maintain prescription for PAP supplies including mask, tube, filters. 8. Follow up visit in 1-2 months or earlier if patient has any problems. Thank you very much for allowing me to participate in the management of your patient. Chad Levin MD, PhD, FAASM. Diplomat of [place] [employer], Sleep Medicine Board by [place] [employer] Commercial Sales Manager of [facility] [place] Objective - Vital Signs Vital Signs: Vital Signs Temp 98.1 F 05/27/24 14:38 Pulse 60 05/27/24 14:38 Resp 16 05/27/24 14:38 BP 127/84 05/27/24 14:38 Pulse Ox 96 05/27/24 14:38 FiO2 Intake & Output 05/26/24 05/27/24 05/27/24 18:59 06:59 18:59 Weight 81.647 kg Home Medications: Home Medications Medication Instructions Recorded Confirmed Type Cholecalciferol [Vitamin D3 (25 50 unit PO DAILY@0600 01/22/14 04/24/23 History Mcg = 1000 Iu)] LORazepam [Ativan] 1 mg PO DAILY PRN 01/22/14 04/24/23 History Levothyroxine Sodium [Synthroid] 50 mcg PO DAILY@0600 01/22/14 04/24/23 History OXcarbazepine [Trileptal] 300 mg PO HS@1800 01/22/14 04/24/23 History Phenytoin Sodium Extended 100 mg PO DAILY@0600 01/22/14 04/24/23 History [Dilantin] Topiramate 200 mg PO BID@0600,1900 01/22/14 04/24/23 History Lacosamide [Vimpat] 100 mg PO DAILY@0600 05/03/17 04/24/23 History Lacosamide [Vimpat] 50 mg PO DAILY@0600 12/25/17 04/24/23 History Donepezil HCl [Aricept] 10 mg PO DAILY@1600 07/02/20 04/24/23 History Lacosamide [Vimpat] 200 mg PO HS@1900 07/02/20 04/24/23 History Memantine [Namenda] 10 mg PO DAILY@0 07/02/20 04/24/23 History OXcarbazepine [Trileptal] 300 mg PO DAILY@0600 07/02/20 04/24/23 History Omeprazole 20 mg PO DAILY@0 07/02/20 04/24/23 History Phenytoin Sodium Extended 60 mg PO HS@1900 07/02/20 04/24/23 History [Dilantin] clonazePAM [Klonopin ODT Wafer] 0.25 mg PO HS@1900 07/02/20 04/24/23 History Apixaban [Eliquis] 5 mg PO BID@0600,1900 04/23/23 04/24/23 History Atorvastatin [Lipitor] 10 mg PO HS@1900 04/23/23 04/24/23 History Calcium Carbonate [Tums] 500 mg PO DAILY@0600 04/23/23 04/24/23 History Fluconazole [Diflucan] 200 mg PO DAILY@0600 04/23/23 04/24/23 History Losartan [Cozaar] 25 mg PO DAILY@0600 04/23/23 04/24/23 History Nitrofurantoin Monohyd/M-Cryst 100 mg PO BID@0600,1900 04/23/23 04/24/23 History [Macrobid]
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
== END ==
LOC: 3 N SLEEP 13:43
PROVIDERS: ATTEND Internal Medicine
DX: G47.33 Obstructive sleep apnea (adult) (pediatric) (principal); E66.9 Obesity, unspecified; E03.9 Hypothyroidism, unspecified; K21.9 Gastro-esophageal reflux disease without esophagitis; F03.90 Unspecified dementia, unspecified severity, without behavioral disturbance, psychotic disturbance, mood disturbance, and anxiety; Z99.89 Dependence on other enabling machines and devices; Z86.69 Personal history of other diseases of the nervous system and sense organs; Z98.890 Other specified postprocedural states; Z79.890 Hormone replacement therapy; Z68.30 Body mass index [BMI] 30.0-30.9, adult
CPT/HCPCS: 99212

== ENCOUNTER → 2024-06-20 | Outpatient (CLI) | payer MEDICARE, OTHER ==
[2024-06-21 09:46] LABS: Appearance,Urine Cloudy (Clear); Bacteria,Urine Occasional /hpf; Bilirubin,Urine Negative (Negative); Blood,Urine Negative (Negative); Color,Urine Yellow; Glucose,Urine (UA) Negative (Negative); Ketones,Urine Negative (Negative); Leukocyte Esterase,Urine Negative (Negative); Mucus,Urine Occasional /hpf; Nitrite,Urine Negative (Negative); PH, Urine 6.5 (5.0-8.0); Protein,Urine Trace (Negative); RBC,Urine 4 /hpf (0-5); Specific Gravity,Urine 1.019 (1.001-1.035); Squamous Epithelial Cell,Urine 4 /hpf (0-4); WBC,Urine 9 /hpf (0-5)
== END | disposition home or self-care (01) ==
LOC: LABWHC1 08:37
PROVIDERS: ATTEND General Practice
DX: Z12.31 Encounter for screening mammogram for malignant neoplasm of breast (principal); K52.9 Noninfective gastroenteritis and colitis, unspecified; Z12.39 Encounter for other screening for malignant neoplasm of breast; Z53.20 Procedure and treatment not carried out because of patient's decision for unspecified reasons
CPT/HCPCS: 81001

== ENCOUNTER → 2024-07-05 | Outpatient (CLI) | payer MEDICARE, OTHER | END | disposition home or self-care (01) | LOC: LABWHC1 08:35 | PROVIDERS: ATTEND Psychiatry & Neurology Neurology | DX: G40.209 Localization-related (focal) (partial) symptomatic epilepsy and epileptic syndromes with complex partial seizures, not intractable, without status epilepticus (principal) | CPT/HCPCS: 36415; 80183; 80185; 80201; 80235 ==

== ENCOUNTER → 2024-07-09 | Outpatient (CLI) | payer MEDICARE, OTHER ==
--- NOTE | 2024-07-09 13:05 | CT ---
EXAMINATION TYPE: CT brain wo/w con DATE OF EXAM: 07/09/2024 8:42 AM COMPARISON: None. CLINICAL INDICATION: Female, 59 years old with history of G30.9 ALZHEIMER'S DISEASE, UNSPECIFIED; alz heimers disease, hx of strokes and change in mentation. TECHNIQUE: Axial CT images were obtained with coronal and sagittal reformats created and reviewed. Contrast used:100ml mL of Isovue 300 without and with IV Contrast, Oral contrast used: none. CT DLP: 2942.90 mGycm, Automated exposure control for dose reduction was used. FINDINGS: Extra-axial spaces: No abnormal extra-axial fluid collections. Ventricular system: Ventriculostomy tubing tip terminating near the lateral aspect of the right later al ventricle. This is in similar position to prior. Tubing appears intact. No evidence of hydrocephal us Cerebral parenchyma: Similar calcification near the left thalamus and left basal ganglia. Cerebral at rophy. No acute intraparenchymal hemorrhage or mass effect. The mclaughlin-white junction is well differen tiated. Scattered hypoattenuating areas are seen within the white matter. No abnormal enhancement is seen after the administration of intravenous contrast. Cerebellum: Unremarkable. Mass effect: No evidence of midline shift. Intracranial vasculature: unremarkable Soft tissues: Normal. Calvarium/osseous structures: No depressed skull fracture. Paranasal sinuses and mastoid air cells: Clear. Visualized orbits: Orbital contents are intact. IMPRESSION: 1. No acute intracranial process and no evidence to suggest intracranial mass. 2. Stable ventriculostomy tubing catheter without evidence for hydrocephalus. 3. Stable calcifications within the left cerebrum. [facility], , 07/09/2024 1:02 PM
== END | disposition home or self-care (01) ==
LOC: RADCTMAIN 07:14
PROVIDERS: ATTEND General Practice
DX: F09 Unspecified mental disorder due to known physiological condition (principal); F79 Unspecified intellectual disabilities; G80.9 Cerebral palsy, unspecified; F02.80 Dementia in other diseases classified elsewhere, unspecified severity, without behavioral disturbance, psychotic disturbance, mood disturbance, and anxiety; G30.9 Alzheimer's disease, unspecified
CPT/HCPCS: 70470; Q9967

== ENCOUNTER → 2024-07-12 | Outpatient (CLI) | payer MEDICARE, OTHER | END | disposition home or self-care (01) | LOC: LABWHC1 07:09 | PROVIDERS: ATTEND General Practice | DX: G40.209 Localization-related (focal) (partial) symptomatic epilepsy and epileptic syndromes with complex partial seizures, not intractable, without status epilepticus (principal) | CPT/HCPCS: 36415; 80185 ==

== ENCOUNTER → 2024-07-15 | Outpatient (CLI) | payer MEDICARE, OTHER | END | disposition home or self-care (01) | LOC: LABWHC1 10:38 | PROVIDERS: ATTEND Psychiatry & Neurology Neurology | DX: G40.209 Localization-related (focal) (partial) symptomatic epilepsy and epileptic syndromes with complex partial seizures, not intractable, without status epilepticus (principal) | CPT/HCPCS: 36415; 80185 ==

== ENCOUNTER → 2024-07-20 | Outpatient (CLI) | payer MEDICARE, OTHER | END | disposition home or self-care (01) | LOC: LABWHC1 10:43 | PROVIDERS: ATTEND Psychiatry & Neurology Neurology | DX: G40.209 Localization-related (focal) (partial) symptomatic epilepsy and epileptic syndromes with complex partial seizures, not intractable, without status epilepticus (principal) | CPT/HCPCS: 36415; 80185 ==